=== PATIENT | male | born 1950 | race Caucasian/White ===

== ENCOUNTER → 2020-01-31 10:40 | Outpatient (BNVA) | payer MEDICARE, SELFPAY | PROVIDERS: Family Provider Family Medicine; Visit Provider Nurse Practitioner | DX: J84.10 Pulmonary fibrosis, unspecified (principal); J44.9 Chronic obstructive pulmonary disease, unspecified; R07.9 Chest pain, unspecified | CPT/HCPCS: 71046 ==

== ENCOUNTER 2020-02-15 10:27 | Outpatient (CLI) | payer MEDICARE, SELFPAY ==
--- NOTE | 2020-02-15 10:45 | XRR_ITS ---
PROCEDURE INFORMATION: Exam: XR Lumbosacral Spine, 2 or 3 Views Exam date and time: 02/15/2020 10:50 AM Age: 69 years old Clinical indication: Pain; Other: Lumbar radiculopathy; Additional info: Right lumbar radiculopathy TECHNIQUE: Imaging protocol: XR of the lumbosacral spine, 2 or 3 views. COMPARISON: No relevant prior studies available. FINDINGS: Bones/joints: No acute bony injury or malalignment. Degenerative change. Gastrointestinal tract: Prominent stool. Vasculature: Vascular calcification. XR/XR lumbar spine 2-3V* [id number] IMPRESSION: Degenerative change.
== END 2020-02-15 10:28 | disposition home or self-care (01) ==
PROVIDERS: PCP Family Medicine; Visit Provider Family Medicine
DX: M54.16 Radiculopathy, lumbar region (principal)
CPT/HCPCS: 72100

== ENCOUNTER → 2020-03-01 11:29 | Outpatient (BNVA) | payer MEDICARE, SELFPAY | PROVIDERS: PCP Family Medicine; Visit Provider Family Medicine | DX: R74.8 Abnormal levels of other serum enzymes (principal) | CPT/HCPCS: 82977 ==

== ENCOUNTER → 2020-03-07 09:36 | Outpatient (BNVA) | payer MEDICARE, SELFPAY | PROVIDERS: PCP Family Medicine; Visit Provider Family Medicine | DX: R89.9 Unspecified abnormal finding in specimens from other organs, systems and tissues (principal); R53.1 Weakness; R79.81 Abnormal blood-gas level; J44.9 Chronic obstructive pulmonary disease, unspecified; F41.9 Anxiety disorder, unspecified | CPT/HCPCS: 80053; 84443; 85007; 85025 ==

== ENCOUNTER 2020-03-08 15:29 | Inpatient (IN) | payer MEDICARE, SELFPAY ==
[2020-03-08] VITALS (18 sets, daily range): BP systolic 97–175; BP diastolic 60–103; PULSE 98–119; RESP 18–28; TEMP 36.5–36.6; O2SAT 97–100; BMI 20.8
--- NOTE | 2020-03-08 15:47 | XR_ITS ---
WS: [id number] Exam: XR chest 1V portable [id number] Date/Time of Exam: 03/08/2020 4:09 PM Reason For Exam: dyspnea/cough Comparison 01/31/2020. The lungs are hyperinflated. No infiltrates identified. Chronic interstitial changes. Unremarkable ca rdiomediastinal structures. No pleural effusions. Monitoring leads superimpose the chest. XR/XR chest 1V portable [id number] IMPRESSION: 1. Chronic pulmonary changes but no acute process identified. 2. Pulmonary hyperinflation most likely indicating obstructive lung disease.
--- NOTE | 2020-03-08 15:56 | ED_ITS ---
HPI - Weakness General: Chief complaint: Weakness Stated complaint: sob/back pain Time Seen by Provider: 03/08/20 15:46 History of Present Illness: HPI Narrative: 69-year-old male who comes in complaining of weight loss and weakness over the last 8 weeks he injured his back. His alk phos is significantly elevated at evidently 800 and they were called about that today he gets severely anxious he is hyperventilating when I seen him. He has difficult time isolating any particular pain other than just generalized in his back. No specific trauma. Patient has developed some incontinence and has been wearing depends lately. Complaint: generalized weakness Onset (ago): week(s) (8) Duration: intermittent and progressively worsening Location: generalized Migration: none Severity: moderate Relieving factors: none Exacerbating factors: none Associated symptoms: Denies chest pain, chills, confusion, melena, decreased appetite, diaphoresis, dysuria, easy bruising, fever(s), headache(s), myalgias, nausea, rash, short of breath, syncope or vomiting Review of Systems Const: Denies: fever(s), chills or diaphoresis Card: Denies: chest pain or syncope GI: Denies: nausea, vomiting or melena : Denies: dysuria Neuro: Denies: headache(s) or confusion Srikanth/Lymph: Denies: easy bruising PFS ED PFSH: Medical History (Updated 03/09/20 @ 10:43 by Dank Lemos DO) Anxiety COPD (chronic obstructive pulmonary disease) Surgical History (Updated 03/08/20 @ 18:57 by Gume Velazquez MD) H/O eye surgery Family History (Updated 03/08/20 @ 18:58 by Gume Velazquez MD) Mother Asthma Father Prostate cancer Social History (Updated 03/08/20 @ 18:58 by Gume Velazquez MD) Smoking and tobacco status: former smoker Alcohol intake: current Substance/Drug Use: never Physical Exam Const: COMMON NORMALS: no acute distress GENERAL APPEARANCE: cooperative and comfortable ORIENTATION/CONSCIOUSNESS: Yes awake, Yes oriented to person, Yes oriented to place and Yes oriented to time HENMT: COMMON NORMALS: normocephalic, atraumatic and hearing grossly normal bilaterally HEAD & SCALP: normocephalic and atraumatic Eye: COMMON NORMALS: Equal, round and reactive pupils present, EOMs intact bilaterally, conjunctivae normal and no scleral icterus CONJUNCTIVA: Yes conjunctivae normal PUPIL: Yes Equal, round and reactive pupils present Neck/C-Spine: COMMON NORMALS: full ROM, no lymphadenopathy, supple and no JVD Lymph: LYMPHATIC: no lymphadenopathy noted and no lymphedema noted Resp: COMMON NORMALS: normal respiratory effort, No retractions, No use of accessory muscles and clear to auscultation bilaterally AUSCULTATION: clear to auscultation bilaterally Cardio: COMMON NORMALS: no JVD, regular rate, regular rhythm and No murmurs present (Cardio) RATE: regular rate RHYTHM: regular rhythm GI: COMMON NORMALS: Soft to palpation and No hepatosplenomegaly present AUSCULTATION: Yes normoactive bowel sounds PALPATION: Yes Soft to palpation, No Tenderness to palpation present (GI), No Guarding due to palpation present (GI) and Yes No hepatosplenomegaly present Extremity: COMMON NORMALS: normal to inspection, capillary refill normal, no clubbing, cyanosis or edema, no calf tenderness and no pedal edema Neuro: SENSORIUM/ORIENTATION: Yes oriented to person, Yes oriented to place and Yes oriented to time Skin: COMMON NORMALS: no rashes or lesions noted GENERAL SKIN EXAM: no rashes or lesions noted Course Vital Signs: Vital signs: Vital Signs Temperature 97.6 F 03/09/20 07:28 Pulse Rate 91 03/09/20 08:06 Respiratory Rate 22 H 03/09/20 08:03 Blood Pressure 151/101 03/09/20 07:28 Pulse Oximetry 99 03/09/20 08:03 MDM - Weakness MDM Narrative: Medical decision making narrative: CT does not show any PE however D-dimer is extremely high. There is significant evidence for prostate CA with mets to the bone and a question of a pulmonary nodule. This fits the clinical picture with his difficulty with urination overflow incontinence as well as a marked elevation of the alk phos. We will go ahead and admit him. In addition to all this he does have exacerbation of COPD. He has some mild hyperkalemia as well discussed with Dr. Cortez he will be attending orders are written. Lab Data: Labs: Lab Results 03/08/20 03/08/20 03/08/20 Range/Units 16:00 16:13 16:13 WBC 6.6 (4.0-10.0) 10^3/ uL Corrected WBC 5.5 (4.8-10.8) 10^3/ cmm RBC 3.78 L (4.1-5.3) 10^6/u L Hgb 10.7 L (11.7-16.6) g/dL Hct 35.3 L (42.0-52.0) % MCV 93.4 (80-94) fL MCH 28.3 (28.0-34.0) pg MCHC 30.3 (30.0-36.0) g/dL RDW 17.2 H (12.1-15.1) % Plt Count 72 L (130-400) 10^3/c mm MPV 11.4 H (7.4-10.4) fL Lymph % (Auto) Not Reportable [place] % (Auto) Not Reportable Lymph # (Auto) Not Reportable [place] # (Auto) Not Reportable Total Counted 100 (0-100) Atypical Lymphs % 0.0 (0-5) % Absolute Neutrophi ls 4.2 (1.4-6.5) 10^3/c mm Segmented Neutroph ils 62 % Abs Segm Neuts (Ma n) 4.1 (1.6-7.1) 10/cmm Band Neutrophils 1.0 % Abs Band Neuts (Ma n) 0.1 (0.0-1.2) 10^3/c mm Lymphocytes (Manua l) 25 % Monocytes (Manual) 1.0 % Absolute Monocytes 0.1 (0.1-0.6) 10^3/c mm Eosinophils (Manua l) 2 % Absolute Eosinophi ls 0.1 (0.0-0.7) 10^3/c mm Basophils (Manual) 0.0 % Absolute Basophils 0.0 (0.0-0.2) 10^3/c mm Metamyelocytes 7.0 % Myelocytes 2.0 % Nucleated RBCs 19.0 H (0-1) /100WBC Platelet Estimate Decreased (Normal) D-Dimer (0-0.59) ug/mIFE U Specimen Type Arterial Sample Site Radial, left ABG pH 7.29 L (7.35-7.45) ABG pCO2 64.7 H* (35-45) mmHg ABG pO2 136.0 H (80.0-100.0) mmH g ABG HCO3 31.1 H (22-26) mmol/L ABG O2 Saturation 99.1 ABG Base Excess 3.1 H (-2.0-2.0) mmol/ L Avila Test Pos A-a O2 Gradient 1.6 L (5-10) mmHg Hematocrit 35.7 L (42-52) % Hgb O2 Saturation 97.2 (95-100) % Carboxyhemoglobin 1.3 (0.4-20.1) %THgb Methemoglobin 0.7 (0.4-1.5) % Total Hemoglobin 11.7 L (14-18) g/dL Sodium 131.0 132 L (131-143) mmol/L Potassium 5.2 H 5.5 H (3.5-5.0) mmol/L Glucose 144.0 H 146 H (70-115) mg/dL Ionized Calcium 1.3 (1.1-1.4) mmol/L O2 Delivery Device Nc O2 Liters/Min 3.0 % FiO2 32.0 % Upholstery Handler ID Gd Chloride 92 L (98-107) mmol/L Carbon Dioxide 29 (22-29) mmol/L Anion Gap 16.5 (5-19) BUN 18 (8-23) mg/dL Creatinine 0.6 L (0.7-1.2) mg/dL GFR Calculation Not Reportable Calculated Osmolal ity 279 L (285-295) mOsm/k g Lactic Acid (0.5-2.2) mmol/L Calcium 9.5 (8.5-10.5) mg/dL Magnesium 2.1 (1.7-2.3) mg/dL Ferritin (30-400) ng/mL Total Bilirubin 0.5 (0.15-1.2) mg/dL AST 62 H (0-40) U/L ALT 17 (0-41) U/L Alkaline Phosphata se 941 H (40-130) IU/L Lactate Dehydrogen ase (135-225) U/L Creatine Kinase 149 (39-308) U/L Troponin T Baselin e (0-15) ng/L Troponin T 120 Min [place] (0-15) ng/L Delta Troponin T (0-10) ABS# Total Protein 6.7 (6.6-8.7) g/dL Albumin 3.8 (3.5-5.2) g/dL Globulin 2.9 (1.3-4.6) g/dL Lipase 18 (13-60) U/L Prostate Specific Ag (0-4) ng/mL Urine Color (Yellow) Urine Appearance (CLEAR) Urine pH (5-7) Ur Specific Gravit y (1.005-1.030) Urine Protein (Negative) Urine Glucose (UA) (Normal) Urine Ketones (Negative) Urine Blood (Negative) Urine Nitrate (Negative) Urine Bilirubin (Negative) Urine Urobilinogen (Negative) mg/dL Ur Leukocyte Davida ase (Negative) Urine RBC (0-2) /hpf Urine WBC (0-5) /hpf Ur Squamous Epith Cells (0-5) /hpf Amorphous Sediment Urine Bacteria (NONE) /hpf Hepatitis A IgM Ab (Nonreactive) Hep Bs Antigen (Nonreactive) Hep B Core IgM Ab (Nonreactive) Hepatitis C Antibo dy (Nonreactive) HIV 1&2 Ab & HIV 1 Ag (Non-Reactiv) HIV 1&2 Antibody (Non-Reactiv) SARS-CoV-2 Ag (Rap id) (Negative) 03/08/20 03/08/20 03/08/20 Range/Units 16:13 16:13 16:13 WBC (4.0-10.0) 10^3/ uL Corrected WBC (4.8-10.8) 10^3/ cmm RBC (4.1-5.3) 10^6/u L Hgb (11.7-16.6) g/dL Hct (42.0-52.0) % MCV (80-94) fL MCH (28.0-34.0) pg MCHC (30.0-36.0) g/dL RDW (12.1-15.1) % Plt Count (130-400) 10^3/c mm MPV (7.4-10.4) fL Lymph % (Auto) [place] % (Auto) Lymph # (Auto) [place] # (Auto) Total Counted (0-100) Atypical Lymphs % (0-5) % Absolute Neutrophi ls (1.4-6.5) 10^3/c mm Segmented Neutroph ils % Abs Segm Neuts (Ma n) (1.6-7.1) 10/cmm Band Neutrophils % Abs Band Neuts (Ma n) (0.0-1.2) 10^3/c mm Lymphocytes (Manua l) % Monocytes (Manual) % Absolute Monocytes (0.1-0.6) 10^3/c mm Eosinophils (Manua l) % Absolute Eosinophi ls (0.0-0.7) 10^3/c mm Basophils (Manual) % Absolute Basophils (0.0-0.2) 10^3/c mm Metamyelocytes % Myelocytes % Nucleated RBCs (0-1) /100WBC Platelet Estimate (Normal) D-Dimer >= 20.00 H (0-0.59) ug/mIFE U Specimen Type Sample Site ABG pH (7.35-7.45) ABG pCO2 (35-45) mmHg ABG pO2 (80.0-100.0) mmH g ABG HCO3 (22-26) mmol/L ABG O2 Saturation ABG Base Excess (-2.0-2.0) mmol/ L Avila Test A-a O2 Gradient (5-10) mmHg Hematocrit (42-52) % Hgb O2 Saturation (95-100) % Carboxyhemoglobin (0.4-20.1) %THgb Methemoglobin (0.4-1.5) % Total Hemoglobin (14-18) g/dL Sodium (131-143) mmol/L Potassium (3.5-5.0) mmol/L Glucose (70-115) mg/dL Ionized Calcium (1.1-1.4) mmol/L O2 Delivery Device O2 Liters/Min % FiO2 % Upholstery Handler ID Chloride (98-107) mmol/L Carbon Dioxide (22-29) mmol/L Anion Gap (5-19) BUN (8-23) mg/dL Creatinine (0.7-1.2) mg/dL GFR Calculation Calculated Osmolal ity (285-295) mOsm/k g Lactic Acid 0.7 (0.5-2.2) mmol/L Calcium (8.5-10.5) mg/dL Magnesium (1.7-2.3) mg/dL Ferritin (30-400) ng/mL Total Bilirubin (0.15-1.2) mg/dL AST (0-40) U/L ALT (0-41) U/L Alkaline Phosphata se (40-130) IU/L Lactate Dehydrogen ase (135-225) U/L Creatine Kinase (39-308) U/L Troponin T Baselin e 22 H (0-15) ng/L Troponin T 120 Min [place] (0-15) ng/L Delta Troponin T (0-10) ABS# Total Protein (6.6-8.7) g/dL Albumin (3.5-5.2) g/dL Globulin (1.3-4.6) g/dL Lipase (13-60) U/L Prostate Specific Ag (0-4) ng/mL Urine Color (Yellow) Urine Appearance (CLEAR) Urine pH (5-7) Ur Specific Gravit y (1.005-1.030) Urine Protein (Negative) Urine Glucose (UA) (Normal) Urine Ketones (Negative) Urine Blood (Negative) Urine Nitrate (Negative) Urine Bilirubin (Negative) Urine Urobilinogen (Negative) mg/dL Ur Leukocyte Davida ase (Negative) Urine RBC (0-2) /hpf Urine WBC (0-5) /hpf Ur Squamous Epith Cells (0-5) /hpf Amorphous Sediment Urine Bacteria (NONE) /hpf Hepatitis A IgM Ab (Nonreactive) Hep Bs Antigen (Nonreactive) Hep B Core IgM Ab (Nonreactive) Hepatitis C Antibo dy (Nonreactive) HIV 1&2 Ab & HIV 1 Ag (Non-Reactiv) HIV 1&2 Antibody (Non-Reactiv) SARS-CoV-2 Ag (Rap id) (Negative) 03/08/20 03/08/20 03/08/20 Range/Units 16:13 16:13 16:13 WBC (4.0-10.0) 10^3/ uL Corrected WBC (4.8-10.8) 10^3/ cmm RBC (4.1-5.3) 10^6/u L Hgb (11.7-16.6) g/dL Hct (42.0-52.0) % MCV (80-94) fL MCH (28.0-34.0) pg MCHC (30.0-36.0) g/dL RDW (12.1-15.1) % Plt Count (130-400) 10^3/c mm MPV (7.4-10.4) fL Lymph % (Auto) [place] % (Auto) Lymph # (Auto) [place] # (Auto) Total Counted (0-100) Atypical Lymphs % (0-5) % Absolute Neutrophi ls (1.4-6.5) 10^3/c mm Segmented Neutroph ils % Abs Segm Neuts (Ma n) (1.6-7.1) 10/cmm Band Neutrophils % Abs Band Neuts (Ma n) (0.0-1.2) 10^3/c mm Lymphocytes (Manua l) % Monocytes (Manual) % Absolute Monocytes (0.1-0.6) 10^3/c mm Eosinophils (Manua l) % Absolute Eosinophi ls (0.0-0.7) 10^3/c mm Basophils (Manual) % Absolute Basophils (0.0-0.2) 10^3/c mm Metamyelocytes % Myelocytes % Nucleated RBCs (0-1) /100WBC Platelet Estimate (Normal) D-Dimer (0-0.59) ug/mIFE U Specimen Type Sample Site ABG pH (7.35-7.45) ABG pCO2 (35-45) mmHg ABG pO2 (80.0-100.0) mmH g ABG HCO3 (22-26) mmol/L ABG O2 Saturation ABG Base Excess (-2.0-2.0) mmol/ L Avila Test A-a O2 Gradient (5-10) mmHg Hematocrit (42-52) % Hgb O2 Saturation (95-100) % Carboxyhemoglobin (0.4-20.1) %THgb Methemoglobin (0.4-1.5) % Total Hemoglobin (14-18) g/dL Sodium (131-143) mmol/L Potassium (3.5-5.0) mmol/L Glucose (70-115) mg/dL Ionized Calcium (1.1-1.4) mmol/L O2 Delivery Device O2 Liters/Min % FiO2 % Upholstery Handler ID Chloride (98-107) mmol/L Carbon Dioxide (22-29) mmol/L Anion Gap (5-19) BUN (8-23) mg/dL Creatinine (0.7-1.2) mg/dL GFR Calculation Calculated Osmolal ity (285-295) mOsm/k g Lactic Acid (0.5-2.2) mmol/L Calcium (8.5-10.5) mg/dL Magnesium (1.7-2.3) mg/dL Ferritin 5059 H (30-400) ng/mL Total Bilirubin (0.15-1.2) mg/dL AST (0-40) U/L ALT (0-41) U/L Alkaline Phosphata se (40-130) IU/L Lactate Dehydrogen ase 644 H (135-225) U/L Creatine Kinase (39-308) U/L Troponin T Baselin e (0-15) ng/L Troponin T 120 Min [place] (0-15) ng/L Delta Troponin T (0-10) ABS# Total Protein (6.6-8.7) g/dL Albumin (3.5-5.2) g/dL Globulin (1.3-4.6) g/dL Lipase (13-60) U/L Prostate Specific Ag 1344.000 H (0-4) ng/mL Urine Color (Yellow) Urine Appearance (CLEAR) Urine pH (5-7) Ur Specific Gravit y (1.005-1.030) Urine Protein (Negative) Urine Glucose (UA) (Normal) Urine Ketones (Negative) Urine Blood (Negative) Urine Nitrate (Negative) Urine Bilirubin (Negative) Urine Urobilinogen (Negative) mg/dL Ur Leukocyte Davida ase (Negative) Urine RBC (0-2) /hpf Urine WBC (0-5) /hpf Ur Squamous Epith Cells (0-5) /hpf Amorphous Sediment Urine Bacteria (NONE) /hpf Hepatitis A IgM Ab Non-reactive (Nonreactive) Hep Bs Antigen Non-reactive (Nonreactive) Hep B Core IgM Ab Non-reactive (Nonreactive) Hepatitis C Antibo dy Non-reactive (Nonreactive) HIV 1&2 Ab & HIV 1 Ag Non-reactive (Non-Reactiv) HIV 1&2 Antibody Non-reactive (Non-Reactiv) SARS-CoV-2 Ag (Rap id) (Negative) 03/08/20 03/08/20 03/08/20 Range/Units 16:51 16:51 18:06 WBC (4.0-10.0) 10^3/ uL Corrected WBC (4.8-10.8) 10^3/ cmm RBC (4.1-5.3) 10^6/u L Hgb (11.7-16.6) g/dL Hct (42.0-52.0) % MCV (80-94) fL MCH (28.0-34.0) pg MCHC (30.0-36.0) g/dL RDW (12.1-15.1) % Plt Count (130-400) 10^3/c mm MPV (7.4-10.4) fL Lymph % (Auto) [place] % (Auto) Lymph # (Auto) [place] # (Auto) Total Counted (0-100) Atypical Lymphs % (0-5) % Absolute Neutrophi ls (1.4-6.5) 10^3/c mm Segmented Neutroph ils % Abs Segm Neuts (Ma n) (1.6-7.1) 10/cmm Band Neutrophils % Abs Band Neuts (Ma n) (0.0-1.2) 10^3/c mm Lymphocytes (Manua l) % Monocytes (Manual) % Absolute Monocytes (0.1-0.6) 10^3/c mm Eosinophils (Manua l) % Absolute Eosinophi ls (0.0-0.7) 10^3/c mm Basophils (Manual) % Absolute Basophils (0.0-0.2) 10^3/c mm Metamyelocytes % Myelocytes % Nucleated RBCs (0-1) /100WBC Platelet Estimate (Normal) D-Dimer (0-0.59) ug/mIFE U Specimen Type Sample Site ABG pH (7.35-7.45) ABG pCO2 (35-45) mmHg ABG pO2 (80.0-100.0) mmH g ABG HCO3 (22-26) mmol/L ABG O2 Saturation ABG Base Excess (-2.0-2.0) mmol/ L Avila Test A-a O2 Gradient (5-10) mmHg Hematocrit (42-52) % Hgb O2 Saturation (95-100) % Carboxyhemoglobin (0.4-20.1) %THgb Methemoglobin (0.4-1.5) % Total Hemoglobin (14-18) g/dL Sodium (131-143) mmol/L Potassium (3.5-5.0) mmol/L Glucose (70-115) mg/dL Ionized Calcium (1.1-1.4) mmol/L O2 Delivery Device O2 Liters/Min % FiO2 % Upholstery Handler ID Chloride (98-107) mmol/L Carbon Dioxide (22-29) mmol/L Anion Gap (5-19) BUN (8-23) mg/dL Creatinine (0.7-1.2) mg/dL GFR Calculation Calculated Osmolal ity (285-295) mOsm/k g Lactic Acid (0.5-2.2) mmol/L Calcium (8.5-10.5) mg/dL Magnesium (1.7-2.3) mg/dL Ferritin (30-400) ng/mL Total Bilirubin (0.15-1.2) mg/dL AST (0-40) U/L ALT (0-41) U/L Alkaline Phosphata se (40-130) IU/L Lactate Dehydrogen ase (135-225) U/L Creatine Kinase (39-308) U/L Troponin T Baselin e (0-15) ng/L Troponin T 120 Min [place] 24.40 H (0-15) ng/L Delta Troponin T 2.40 (0-10) ABS# Total Protein (6.6-8.7) g/dL Albumin (3.5-5.2) g/dL Globulin (1.3-4.6) g/dL Lipase (13-60) U/L Prostate Specific Ag (0-4) ng/mL Urine Color Yellow (Yellow) Urine Appearance Turbid (CLEAR) Urine pH 5 (5-7) Ur Specific Gravit y 1.025 (1.005-1.030) Urine Protein 1+ H (Negative) Urine Glucose (UA) Norm (Normal) Urine Ketones Negative (Negative) Urine Blood 3+ H (Negative) Urine Nitrate Negative (Negative) Urine Bilirubin Neg (Negative) Urine Urobilinogen 1 H (Negative) mg/dL Ur Leukocyte Davida ase Negative (Negative) Urine RBC 0-4 H (0-2) /hpf Urine WBC None (0-5) /hpf Ur Squamous Epith Cells None (0-5) /hpf Amorphous Sediment Not Reportable Urine Bacteria 4+ H (NONE) /hpf Hepatitis A IgM Ab (Nonreactive) Hep Bs Antigen (Nonreactive) Hep B Core IgM Ab (Nonreactive) Hepatitis C Antibo dy (Nonreactive) HIV 1&2 Ab & HIV 1 Ag (Non-Reactiv) HIV 1&2 Antibody (Non-Reactiv) SARS-CoV-2 Ag (Rap id) Negative (Negative) Discharge Plan Discharge Patient Disposition: Admitted As Inpatient Admit Provider: Gume Velazquez Clinical Impression: COPD (chronic obstructive pulmonary disease), Acute hypercapnic respiratory failure, Prostate cancer Condition: Stable Coding Level of Care Code ED Barrel Cap Setter for Chg Fwd Exam Comprehensive
--- NOTE | 2020-03-08 15:59 | CTR_ITS ---
PROCEDURE INFORMATION: Exam: CT Lumbar Spine Without Contrast Exam date and time: 03/08/2020 5:19 PM Age: 69 years old Clinical indication: Low back pain; Additional info: Back pain, overflow incontinence TECHNIQUE: Imaging protocol: Computed tomography images of the lumbar spine without contrast. Radiation optimization: All CT scans at this facility use at least one of these dose optimization techniques: automated exposure control; mA and/or kV adjustment per patient size (includes targeted exams where dose is matched to clinical indication); or iterative reconstruction. COMPARISON: CR XR lumbar spine 2-3V* [id number] 02/15/2020 10:[address] abdomen pelvis 03/08/2020. RADIATION DOSE METRICS: Total DLP (mGy-cm): 2100.86 FINDINGS: Vertebrae: Diffuse mottled sclerotic appearance throughout the skeleton. The vertebral body stature is intact. No subluxation. Degenerative endplate changes with anterior spurring at L1-L2. Mild leftward lumbar curvature. L1-L2: No significant disc protrusion. No severe spinal canal stenosis. No significant neural foraminal narrowing. L2-L3: No significant disc protrusion. No spinal canal stenosis. No neural foraminal narrowing. L3-L4: No significant disc protrusion. No severe spinal canal stenosis. No significant neural foraminal narrowing. L4-L5: Trace disc bulge. Degenerative facets. Mild bilateral foraminal stenosis. No central canal stenosis. L5-S1: Trace disc bulge. Degenerative facets. Mild right foraminal stenosis. No left foraminal or central canal stenosis. Lymph nodes: Multiple enlarged retroperitoneal and right iliac chain lymph nodes measuring up to 1.8 cm short axis. 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 Soft tissues: Unremarkable. CT/CT lumbar spine wo con* [id number] IMPRESSION: 1. No acute fracture or pathologic fracture identified. 2. Diffuse mottled sclerotic appearance throughout the skeleton. This can be seen with diffuse metastatic prostate cancer and less likely chronic renal disease. 3. Retroperitoneal and right iliac chain lymphadenopathy. Lymphoma or metastatic disease is not excluded. Radiation Dose CTDIVOL = (mGy): DLP = 2100.86 (mGy-cm)
[2020-03-08 16:20] LABS: ABG PH Result 7.29 (7.35-7.45); Alveolar-Arterial Oxygen Gradi 1.6 mmHg (5-10); Arterial Blood Gas Hematocrit 35.7 % (42-52); Base Excess ABG 3.1 mmol/L (-2.0-2.0); Blood Gas Allen Test Pos; Blood Gas Operator Identificat GD; Blood Gas Sample Site Radial, left; Blood Gas Sample Type Arterial; Carboxyhemoglobin 1.3 %THgb (0.4-20.1); HCO3 ABG 31.1 mmol/L (22-26); HGB O2 Sat 97.2 % (95-100); Ionized Calcium Level - ABG 1.3 mmol/L (1.1-1.4); Methemoglobin 0.7 % (0.4-1.5); Oxygen Device NC; Oxygen Saturation ABG 99.1; Potassium Level - ABG 5.2 mmol/L (3.5-5.0); Total Hemoglobin 11.7 g/dL (14-18)
[2020-03-08 16:21] LABS: Hematocrit 35.3 % (42.0-52.0); Hemoglobin 10.7 g/dL (11.7-16.6); Mean Corpuscular HGB Conc 30.3 g/dL (30.0-36.0); Mean Corpuscular Hemoglobin 28.3 pg (28.0-34.0); Mean Corpuscular Volume 93.4 fL (80-94); Mean Platelet Volume 11.4 fL (7.4-10.4); Platelet Count 72 10^3/cmm (130-400); Red Blood Count 3.78 10^6/uL (4.1-5.3); Red Cell Distribution Width 17.2 % (12.1-15.1); White Blood Count 6.6 10^3/uL (4.0-10.0)
[2020-03-08 16:21] LABS: ABG PCO2 64.7 mmHg (35-45)
--- NOTE | 2020-03-08 16:36 | CTR_ITS ---
PROCEDURE INFORMATION: Exam: CT Angiography Chest With Contrast Exam date and time: 03/08/2020 5:19 PM Age: 69 years old Clinical indication: Shortness of breath; Patient HX: SOB, elevated d-dimer; Additional info: Resp failure TECHNIQUE: Imaging protocol: Computed tomographic angiography of the chest with intravenous contrast. 3D rendering (Not supervised by radiologist): MIP and/or 3D reconstructed images were created by the technologist. Radiation optimization: All CT scans at this facility use at least one of these dose optimization techniques: automated exposure control; mA and/or kV adjustment per patient size (includes targeted exams where dose is matched to clinical indication); or iterative reconstruction. Contrast material: OMNI 350; Contrast volume: 95 ml; Contrast route: INTRAVENOUS (IV); COMPARISON: CR XR chest 1V portable [id number] 03/08/2020 4:15 PM RADIATION DOSE METRICS: Total DLP (mGy-cm): 1365.3 FINDINGS: Pulmonary arteries: Normal. No pulmonary emboli. Aorta: Unremarkable. No aortic aneurysm. No aortic dissection. Lungs: Severe centrilobular emphysema. Focal scarring in the posterior right upper lobe. 4 mm nodule along the minor fissure, series 4, image 45. 5 mm right lower lobe nodule, image 37. 5 mm right lower lobe nodule, image 48. 4 mm right lower lobe nodule, image 55. 4 mm right lower lobe nodule, image 61. 2 mm nodule in the left upper lobe, image 13. 3 mm nodule in the left upper lobe, image 29. 4 mm nodule in the left lower lobe, image 37. 4 mm nodule in the left lower lobe, image 61. Pleural space: Unremarkable. No pneumothorax. No pleural effusion. Heart: Unremarkable. No cardiomegaly. No pericardial effusion. Lymph nodes: Retrocrural and posterior mediastinal lymph nodes measuring up to 1.5 cm short axis. Bones/joints: Diffuse sclerotic mottled appearance throughout the thoracic skeleton. No compression fracture. T5 Schmorl's node. Soft tissues: Unremarkable. IMPRESSION: 1. No evidence for pulmonary embolus. 2. Diffuse mottled sclerotic appearance in the skeleton. This can be seen with metastatic prostate cancer and less likely chronic renal disease or other metabolic disorder. 3. Retrocrural and posterior mediastinal lymphadenopathy. This is suspicious for metastatic disease or lymphoma. 4. Multiple bilateral pulmonary nodules measuring up to 5 mm. Metastatic disease is not excluded. For patients at low risk (minimal or absent history of smoking and of other known risk factors), no routine follow-up is indicated. For patients at high risk (history of smoking or of other known risk factors), consider optional CT Chest at 12 months. (Reference: Chidi) References: Chidi Garcia et al. Guidelines for Management of Incidental Pulmonary Nodules Detected on CT Images: From the Fleischner Society 2017. Radiology. 2017;284(1):228-243. PROCEDURE INFORMATION: Exam: CT Abdomen And Pelvis With Contrast Exam date and time: 03/08/2020 5:19 PM Age: 69 years old Clinical indication: Shortness of breath; Patient HX: SOB, elevated d-dimer; Additional info: Resp failure TECHNIQUE: Imaging protocol: Computed tomography of the abdomen and pelvis with intravenous contrast. Radiation optimization: All CT scans at this facility use at least one of these dose optimization techniques: automated exposure control; mA and/or kV adjustment per patient size (includes targeted exams where dose is matched to clinical indication); or iterative reconstruction. Contrast material: OMNI 350; Contrast volume: 95 ml; Contrast route: INTRAVENOUS (IV); COMPARISON: CR XR chest 1V portable [id number] 03/08/2020 4:15 PM RADIATION DOSE METRICS: Total DLP (mGy-cm): 1365.3 FINDINGS: Liver: Focal fatty infiltration in the left liver lobe. Otherwise unremarkable. Gallbladder and bile ducts: Normal. No calcified stones. No ductal dilation. Pancreas: Normal. No ductal dilation. Spleen: Normal. No splenomegaly. Adrenal glands: Normal. No mass. Kidneys and ureters: Hypodensity in the inferior left kidney is too small to characterize but is most likely a cyst. No follow-up imaging is recommended. The left kidney is normal. No hydronephrosis. Stomach and bowel: Diverticulosis of the colon without diverticulitis. The stomach and small bowel are unremarkable. Appendix: The appendix is visualized and is normal. Intraperitoneal space: Unremarkable. No free air. No significant fluid collection. Vasculature: Proximal abdominal aortic aneurysm measuring 3.5 cm. 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 Lymph nodes: Multiple enlarged retroperitoneal and right external iliac chain lymph nodes with short axis dimension measuring up to 1.7 cm. Slightly enlarged internal iliac chain lymph nodes. Urinary bladder: The urinary bladder is decompressed. Reproductive: Enlarged inhomogenous prostate measuring 5.1 x 6.0 x 6.5 cm and mildly indenting the urinary bladder. Bones/joints: Diffuse small sclerotic appearance throughout the skeleton. Soft tissues: Fat containing right inguinal hernia. CT/CT angio chest w abd pel w con IMPRESSION: 1. Enlarged inhomogenous prostate. Given the other findings, underlying prostate malignancy is not excluded. 2. Retroperitoneal and bilateral iliac chain lymphadenopathy. This is suspicious for metastatic disease or lymphoma. 3. Diffuse mottled sclerotic appearance throughout the skeleton. This can be seen with metastatic prostate cancer and chronic renal disease or other metabolic disorder. COMMENTS: Consistent with the [place] [employer]'s Incidental Findings Committee white paper (J Am Lex Radiol 2018): Any incidental renal lesion less than 1 cm or classified as too small to characterize, or any incidental cystic renal lesion characterized as simple-appearing, is likely benign. No follow-up imaging is recommended for these lesions per consensus recommendations based on imaging criteria. Radiation Dose CTDIVOL = (mGy): DLP = 1365.3~1365.3 (mGy-cm)
[2020-03-08] MEDS: sodium chlor 0.9% + KCl 20 mEq 20 MEQ/1,000 ML BAG 125 MEQ IV (16:38)
[2020-03-08 17:01] LABS: Troponin(5th) Baseline 22 ng/L (0-15)
[2020-03-08 17:05] LABS: Slide Review Slide Review Perform
[2020-03-08 17:12] LABS: D Dimer >= 20.00 ug/mIFEU (0-0.59)
[2020-03-08 17:13] LABS: Absolute Eosinophils 0.1 10^3/cmm (0.0-0.7); Absolute Segmented Neutrophil 4.1 10/cmm (1.6-7.1); Band Neutrophils Absolute 0.1 10^3/cmm (0.0-1.2); Corrected White Blood Count 5.5 10^3/cmm (4.8-10.8); Eosinophils 2 %; Lymphocytes 25 %; Monocytes Absolute 0.1 10^3/cmm (0.1-0.6); Segmented Neutrophils 62 %; Total Cells Counted 100 (0-100)
[2020-03-08 17:14] LABS: Absolute Neutrophil 4.2 10^3/cmm (1.4-6.5); Platelet Estimate Decreased (Normal)
[2020-03-08 17:16] LABS: Lactic Sepsis W/Reflex 0.7 mmol/L (0.5-2.2)
[2020-03-08 17:34] LABS: Alanine Aminotransferase 17 U/L (0-41); Albumin Level 3.8 g/dL (3.5-5.2); Alkaline Phosphatase 941 IU/L (40-130); Anion Gap 16.5 (5-19); Aspartate Amino Transferase 62 U/L (0-40); Blood Urea Nitrogen 18 mg/dL (8-23); Calcium 9.5 mg/dL (8.5-10.5); Carbon Dioxide 29 mmol/L (22-29); Chloride 92 mmol/L (98-107); Creatine Phosphokinase 149 U/L (39-308); Globulin 2.9 g/dL (1.3-4.6); Glucose 146 mg/dL (65-115); Lipase 18 U/L (13-60); Magnesium 2.1 mg/dL (1.7-2.3); Osmolality Calculated 279 mOsm/kg (285-295); Potassium 5.5 mmol/L (3.5-5.1); Sodium 132 mmol/L (136-145); Total Bilirubin 0.5 mg/dL (0.15-1.2); Total Protein 6.7 g/dL (6.6-8.7)
[2020-03-08 17:42] LABS: Glucose Urine UA Norm (Normal); Protein Urine 1+ (Negative); Specific Gravity, Urine 1.025 (1.005-1.030); Urine Appearance Turbid (CLEAR); Urine Color Yellow (Yellow); pH Urine 5 (5-7)
[2020-03-08 17:44] LABS: Add Urine Microscopic? YES; Bilirubin Urine Neg (Negative); Blood Urine 3+ (Negative); Ketones Urine Negative (Negative); Leukocyte Esterase Urine Negative (Negative); Nitrate Urine Negative (Negative); Urobilinogen Urine 1 mg/dL (Negative)
[2020-03-08 17:45] LABS: RBC Urine 0-4 /hpf (0-2)
[2020-03-08 17:46] LABS: Add Urine Culture? Yes; Bacteria Urine 4+ /hpf
[2020-03-08 17:47] LABS: SARS Covid-2 Antigen Negative (Negative)
--- NOTE | 2020-03-08 17:56 | ECG_ITS ---
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 Measurements Intervals [place] Rate: 113 P: 85 MA: 166 QRS: 249 QRSD: 89 T: 78 QT: 289 QTc: 397 Interpretive Statements SINUS TACHYCARDIA No previous ECG available for comparison Electronically Signed On 03-08-2020 18:12:45 ICEBOX WORKER by Demetrius Ibarra M.D. [id number]
[2020-03-08] MEDS: enoxaparin 80 mg/0.8 mL Syringe SUBCUT (18:16)
[2020-03-08 18:29] LABS: ABG PCO2 57.6 mmHg (35-45); ABG PH Result 7.33 (7.35-7.45); Alveolar-Arterial Oxygen Gradi 5.5 mmHg (5-10); Arterial Blood Gas Hematocrit 33.7 % (42-52); Base Excess ABG 3.2 mmol/L (-2.0-2.0); Blood Gas Allen Test Pos; Blood Gas Operator Identificat GD; Blood Gas Sample Site Radial, right; Blood Gas Sample Type Arterial; Carboxyhemoglobin 1.1 %THgb (0.4-20.1); HCO3 ABG 30.3 mmol/L (22-26); HGB O2 Sat 97.6 % (95-100); Ionized Calcium Level - ABG 1.3 mmol/L (1.1-1.4); Oxygen Device BIPAP; Oxygen Saturation ABG 99.7; Potassium Level - ABG 5.4 mmol/L (3.5-5.0)
[2020-03-08] MEDS: LORazepam 2 mg/mL INJ 1 mL 1 MG IVP (18:39)
[2020-03-08] MEDS: iohexol 350 mg/mL 100 mL Btl IV (18:52)
--- NOTE | 2020-03-08 18:54 | P.HP_ITS ---
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 Patient tells me that he is a fairly active individual, he has been doing well, but about 3 weeks ago he started to complain of lower back pain, t hroughout his lower back, radiating down his right leg, he saw his primary care physician, and they ordered some blood work. They found elevated alkaline phosphatase levels. At the same time patient started to develop severe episodes anxiety, and shortness of breath, he was put on 2 L, his COPD, has quit smoking many years ago, no active smoking, he was put on multiple inhalers with some benefit. However for severe anxiety his primary care physician tried clonazepam, Ativan, however he tells me he is very na?ve to these medications, and they were worried about respiratory depression, so the medications were stopped. Currently he is here in the emergency room because he is having episodes of anxiety and shortness of breath associated with it, and continued lower back pain. No cough, no fevers, no exposure to COVID-19, no orthopnea, no paroxysmal nocturnal dyspnea, no chest pain, no cardiac history, history of strokes,. Review of Systems Const: Denies: fever(s), chills, fatigue or malaise Eyes: Denies: change in vision or blurry vision ENMT: Denies: nasal congestion Card: Denies: chest pain or palpitations Resp: Reports: dyspnea; Denies: productive cough, non-productive cough or wheezing GI: Denies: abdominal pain, nausea, vomiting, hematemesis, diarrhea, constipation, hematochezia or melena : Denies: flank pain, difficulty urinating, dysuria or urinary frequency Musc: Denies: neck pain or back pain Skin/Breast: Denies: rash Neuro: Denies: headache(s), dizziness or vertigo Psych: Denies: anxiety or depression Endo: Denies: polyuria or polydipsia Medications/Allergies Home Medications Medication Instructions Recorded Confirmed Last Taken Type duloxetine 30 mg capsule,delayed 30 mg PO DAILY@12 03/07/20 03/08/20 03/08/20 History release fluticasone 500 mcg-salmeterol 50 1 inh INHALATION BID #60 ea 03/07/20 03/08/20 03/07/20 Rx mcg/dose blistr powdr for inhalation ipratropium bromide 18 1 puff INHALATION BID 03/07/20 03/08/20 Unknown History mcg/actuation aerosol inhaler sertraline 100 mg tablet 75 mg PO DAILY tab 03/07/20 03/08/20 03/07/20 History acetaminophen [Tylenol] 325 mg PO Q4H PRN 03/08/20 03/08/20 03/08/20 History aspirin 81 mg PO DAILY 03/08/20 03/08/20 03/07/20 History buspirone 7.5 mg PO BID PRN 03/08/20 03/08/20 Unknown History clonazepam 1 mg PO TID PRN 03/08/20 03/08/20 Unknown History Allergies Allergy/AdvReac Type Severity Reaction Status Date / Time No Known Allergies Allergy Verified 03/07/20 08:13 PFSH Acute PFSH: Medical History (Updated 03/08/20 @ 18:59 by Gume Velazquez MD) Anxiety COPD (chronic obstructive pulmonary disease) Surgical History (Updated 03/08/20 @ 18:57 by Gume Velazquez MD) H/O eye surgery Family History (Updated 03/08/20 @ 18:58 by Gume Velazquez MD) Mother Asthma Father Prostate cancer Social History (Updated 03/08/20 @ 18:58 by Gume Velazquez MD) Smoking and tobacco status: former smoker Alcohol intake: current Substance/Drug Use: never Vitals/I&O/Wt Last Vital Signs Temp 97.8 F 03/08/20 15:34 Pulse 115 H 03/08/20 18:00 Resp 26 H 03/08/20 18:00 BP 175/103 03/08/20 17:55 Pulse Ox 97 03/08/20 18:00 Weight last 48 hrs Weight 75.75 kg Physical Exam Narrative: EXAM NARRATIVE: Quite anxious appearing, hyper respirating Const: COMMON NORMALS: no acute distress and patient oriented x3 GENERAL APPEARANCE: cooperative and comfortable HENMT: COMMON NORMALS: normocephalic HEAD & SCALP: normocephalic Eye: COMMON NORMALS: Equal, round and reactive pupils present, EOMs intact bilaterally and no papilledema GENERAL EYE: appearance normal, both eyes and all related structures PUPIL: Yes Equal, round and reactive pupils present DIRECT OPHTHALMOSCOPY: Yes no papilledema Neck/C-Spine: COMMON NORMALS: full ROM, no lymphadenopathy, no JVD and Thyroid normal THYROID: Thyroid normal Lymph: LYMPHATIC: no lymphadenopathy noted Resp: COMMON NORMALS: normal respiratory effort, No retractions, No use of accessory muscles and clear to auscultation bilaterally AUSCULTATION: clear to auscultation bilaterally Cardio: COMMON NORMALS: no JVD, regular rate, regular rhythm, S1 normal heart sound present, S2 normal heart sound present, No gallops present (Cardio), No clicks present (Cardio) and No murmurs present (Cardio) RATE: regular rate RHYTHM: regular rhythm HEART SOUNDS: S1 normal heart sound present and S2 normal heart sound present GI: COMMON NORMALS: Normal to inspection, nondistended, normoactive bowel sounds present, Soft to palpation, non-tender and No hepatosplenomegaly present PALPATION: Yes Soft to palpation and Yes No hepatosplenomegaly present Extremity: COMMON NORMALS: normal to inspection, full ROM and no pedal edema Neuro: COMMON NORMALS: patient oriented x3, CN's II-XII intact bilaterally, moves all extremities and no focal motor deficits Psych: COMMON NORMALS: mental status grossly normal, Normal thought process present and cooperative MOOD & AFFECT: Yes anxious THOUGHT PROCESS: Normal thought process present Data : 03/08/20 16:13 03/08/20 16:13 A&P Assessment and plan (1) Acute hypercapnic respiratory failure: Likely secondary to severe anxiety, over current diagnosis, and COPD ABG is improved, but PCO2 remains in the 60s, pH 7.32 Plan Continue BiPAP Use Ativan minimally for anxiety episodes Solu-Medrol DuoNeb treatment Advair, albuterol Monitor respiratory status closely Lovenox for DVT prophylaxis Full code Status: Acute (2) Prostate cancer: CT abdomen and pelvis showed: 1. Enlarged inhomogenous prostate. Given the other findings, underlying prostate malignancy is not excluded. 2. Retroperitoneal and bilateral iliac chain lymphadenopathy. This is suspicious for metastatic disease or lymphoma. 3. Diffuse mottled sclerotic appearance throughout the skeleton. This can be seen with metastatic prostate cancer and chronic renal disease or other metabolic disorder. -Will order PSA, serum and and urine protein electrophoresis, beta microglobulin, LDH -Findings could represent prostate cancer,Less likely multiple myeloma, possible lymphoma -We will discuss with hematology oncology tomorrow morning Status: Acute (3) COPD (chronic obstructive pulmonary disease): Status: Acute Qualifiers: COPD type: unspecified COPD Qualified Code(s): J44.9 - Chronic obstructive pulmonary disease, unspecified (4) Generalized weakness: Status: Acute (5) Anxiety: Status: Acute (6) Abnormal laboratory test: Status: Acute Attestations Medical Necessity Statement*: Patient requires hospitalization, patient with observation, acute hypercapnic respiratory failure, prostate cancer newly diagnosed, with diffuse metastasis Coding Level of Care Code Acute Wing Commander for [facility] Diagnoses Acute hypercapnic respiratory failure J96.02 Prostate cancer C61 COPD (chronic obstructive pulmonary disease) J44.9 COPD type: unspecified COPD Generalized weakness R53.1 Anxiety F41.9 Abnormal laboratory test R89.9
[2020-03-08] MEDS: ipratropium-albuterol 3 mL Neb INHALATION (21:06)
[2020-03-08] MEDS: morphine 4 mg/mL SDV 1 mL 1 MG IVP (21:11)
[2020-03-08 21:14] LABS: HIV 1 & 2 Antibody Non-Reactive (Non-Reactiv); HIV 1 & 2 Antigen Non-Reactive (Non-Reactiv)
[2020-03-08 21:24] LABS: LAB Peripheral Smear Sent for Review
[2020-03-08 21:28] LABS: Hepatitis A Antibody IgM Non-Reactive (Nonreactive); Hepatitis B Core IgM Non-Reactive (Nonreactive); Hepatitis B Surface Antigen Non-Reactive (Nonreactive); Hepatitis C Virus Antibody Non-Reactive (Nonreactive)
[2020-03-08 21:42] LABS: Lactate Dehydrogenase 644 U/L (135-225)
[2020-03-08] MEDS: sodium chloride 0.9% 1,000 ML 100 ML IV (21:51)
--- NOTE | 2020-03-08 21:56 | ECG_ITS ---
[facility] Test Date: 2020-03-08 Pat Name: Bartolo Lopez Department: Room: 260 Gender: Male Almond Paste Mixer: : 1950 Requested By: Dank Cooney Order Number: [id number] Henrry MD: Deborah Valencia M.D. Measurements Intervals [place] Rate: 90 P: 88 GA: 162 QRS: 58 QRSD: 101 T: 66 QT: 356 QTc: 437 Interpretive Statements SINUS RHYTHM POSSIBLE ANTERIOR MYOCARDIAL INFARCTION [30 ms Q WAVE IN V3/V4, OR R < 0.2 mV IN V4], OF INDETERMINATE AGE PROBABLE INFERIOR MYOCARDIAL INFARCTION [35 ms Q WAVE IN II/aVF], PROBABLY OLD MODERATE T-WAVE ABNORMALITY, CONSIDER LATERAL ISCHEMIA [-0.1+ mV T WAVE IN I/aVL/V5/V6] Compared to ECG 03/08/2020 18:03:01 Myocardial infarct finding now present T-wave abnormality now present Possible ischemia now present Sinus tachycardia no longer present Electronically Signed On 03-10-2020 18:07:20 UNHAIRING MACHINE OPERATOR by Deborah Valencia M.D. [id number]
[2020-03-08 22:13] LABS: Glucose Point of Care 139 mg/dL (70-110)
[2020-03-08 22:39] LABS: Troponin 5 6HR 28.65 ng/L (0-15); Troponin 5 6HR Delta 6.65 ng/L (0-12)
[2020-03-08 22:58] LABS: Ferritin 5059 ng/mL (30-400)
[2020-03-08] MEDS: insulin regular-human 10 UNIT in SYRINGE 1 EACH 5.8 UNIT IVP (23:22)
[2020-03-08] MEDS: dextrose 50% syringe 50 mL IVP (23:35)
[2020-03-09] VITALS (18 sets, daily range): BP systolic 124–153; BP diastolic 81–101; PULSE 86–98; RESP 16–22; TEMP 36.4–37.2; O2SAT 91–99
[2020-03-09] MEDS: sodium polystyrene sulfonate 15 gm/60 mL Btl 10 GM PO (00:49)
--- NOTE | 2020-03-09 03:27 | PC.NURSE ---
Bipap: Pt came up from the ER on 5L NC and was visibly sort of breath using accessory muscles and pursed lip breathing. Other than tachypenia and HR 108 all other VSS including SPO2. The pt was c/o severe pain. Ativan and Morphine was discussed and they chose to try the Morphine first and then Ativan if needed. Upon reassessment the pt was resting comfortably and his said that he had not slept well in 8 weeks and did not want to wake him to place Bipap or do a shift assessment. Will allow for rest and group activities to minimize waking the pt.
[2020-03-09 04:32] LABS: ABG PCO2 57.2 mmHg (35-45); ABG PH Result 7.34 (7.35-7.45); Arterial Blood Gas Hematocrit 29.9 % (42-52); Base Excess ABG 3.9 mmol/L (-2.0-2.0); Blood Gas Sample Site Brachial, right; Blood Gas Sample Type Arterial; HCO3 ABG 30.6 mmol/L (22-26); Oxygen Device NC
[2020-03-09] MEDS: morphine 4 mg/mL SDV 1 mL 1 MG IVP (05:06)
--- NOTE | 2020-03-09 05:25 | PC.RESP ---
Pt came from the ER on 5lpm via nasal cannula. Upon arrival to the pt's room I decreased the patient's oxygen to his baseline at home of 2lpm via nasal cannula. Pt had complaints of pain, and when I spoke with the charge nurse, her plan was to administer morphine, and possibly ativan. The morphine seemed to help slow down the pt's work of breathing, and his heart rate; as for he was purse-lip breathing upon arrival. The pt continued to refuse the bipap throughout the night as for he stated that he just wanted to rest and have a break from the mask. Obi an AM ABG as ordered.
[2020-03-09 06:32] LABS: Basophils # 0.1 10^3/uL (0.0-0.1); Eosinophils # 0.1 10^3/uL (0.0-0.8); Eosinophils % 1.2 %; Hematocrit 34.3 % (42.0-52.0); Hemoglobin 10.2 g/dL (11.7-16.6); Lymphocytes # 1.4 10^3/uL (0.8-4.8); Lymphocytes % 28.3 %; Mean Corpuscular HGB Conc 29.7 g/dL (30.0-36.0); Mean Corpuscular Hemoglobin 28.1 pg (28.0-34.0); Mean Corpuscular Volume 94.5 fL (80-94); Mean Platelet Volume 12.9 fL (7.4-10.4); Monocytes # 0.6 10^3/uL (0.2-0.9); Monocytes % 12.2 %; Neutrophils # 2.44 10^3/uL (1.8-7.7); Neutrophils % 49.6 %; Nucleated Red Blood Cells # 0.2 /100WBC; Nucleated Red Blood Cells % 3.7 %; Platelet Count 78 10^3/cmm (130-400); Red Blood Count 3.63 10^6/uL (4.1-5.3); Red Cell Distribution Width 17.2 % (12.1-15.1); White Blood Count 4.9 10^3/uL (4.0-10.0)
[2020-03-09 06:40] LABS: Glucose Point of Care 215 mg/dL (70-110)
[2020-03-09 06:55] LABS: Alanine Aminotransferase 17 U/L (0-41); Albumin Level 3.6 g/dL (3.5-5.2); Alkaline Phosphatase 862 IU/L (40-130); Anion Gap 13.2 (5-19); Aspartate Amino Transferase 44 U/L (0-40); Blood Urea Nitrogen 20 mg/dL (8-23); Calcium 9.5 mg/dL (8.5-10.5); Carbon Dioxide 31 mmol/L (22-29); Chloride 93 mmol/L (98-107); Globulin 3.2 g/dL (1.3-4.6); Glucose 175 mg/dL (65-115); Osmolality Calculated 281 mOsm/kg (285-295); Potassium 5.2 mmol/L (3.5-5.1); Sodium 132 mmol/L (136-145); Total Bilirubin 0.5 mg/dL (0.15-1.2); Total Protein 6.8 g/dL (6.6-8.7)
--- NOTE | 2020-03-09 07:00 | USCV_ITS ---
Bartolo Lopez Age: 69 Gender: M : 1950 Exam Date: 03/09/2020 09:04 Ordering Phys: Gume Velazquez MD Technologist: Frankie Polanco Exam Location: [facility] [place] Indication: SOB BP: 153 / 96 HR: 102 Rhythm: Sinus Technical Quality: Adequate MEASUREMENTS (Male / Female) Normal Values 2D ECHO LV Diastolic Diameter PLAX 4.7 cm 4.2 - 5.9 / 3.9 - 5.3 cm LV Systolic Diameter PLAX 2.0 cm IVS Diastolic Thickness 0.9 cm 0.6 - 1.0 / 0.6 - 0.9 cm IVS Systolic Thickness 1.3 cm LVPW Diastolic Thickness 0.9 cm 0.6 - 1.0 / 0.6 - 0.9 cm LVPW Systolic Thickness 1.3 cm LVOT Diameter 2.3 cm LV Ejection Fraction 2D Teich 87.1 % LV Ejection Fraction MOD 2C 61.7 % LV Ejection Fraction 2C AL 63.8 % LA Diameter 3.8 cm LA Width 3.6 cm LA Height 4.5 cm RA Width 4.3 cm RA Height 4.2 cm Aorta at Sinotubular Diameter 3.4 cm M-MODE LV Diastolic Diameter MM 4.2 cm 4.2 - 5.9 / 3.9 - 5.3 cm LV Systolic Diameter MM 2.1 cm LV Ejection Fraction MM Teich 81.2 % IVS Diastolic Thickness MM 1.2 cm 0.6 - 1.0 / 0.6 - 0.9 cm IVS Systolic Thickness MM 1.7 cm LVPW Diastolic Thickness MM 1.3 cm 0.6 - 1.0 / 0.6 - 0.9 cm LVPW Systolic Thickness MM 2.3 cm RV Diastolic Diameter MM 2.0 cm Aortic Annulus Diameter 3.8 cm LA Ao Ratio MM 1.0 MV E Point Septal Separation 0.5 cm DOPPLER AV Peak Velocity 195.0 cm/s LVOT Peak Velocity 106.0 cm/s AV Area Cont Eq vti 2.8 cm squared AV Area Cont Eq pk 2.3 cm squared MV Area PHT 8.1 cm squared Mitral E to A Ratio 0.8 MV E' Velocity 49.5 cm/s Mitral E to MV E' Ratio 6.8 Mitral E to LV E' Lateral Ratio 5.1 Mitral E to LV E' Septal Ratio 10.0 TR Peak Velocity 352.7 cm/s TR Peak Gradient 49.7 mmHg Right Atrial Pressure 3.0 mmHg Pulmonary Artery Systolic Pressu 52.7 mmHg PV Peak Velocity 132.0 cm/s FINDINGS Left Ventricle Normal left ventricular size and systolic function, EF 64 %. No regional wall motion abnormalities. He was found to be tachycardic during the study. Right Ventricle The right ventricle is normal in size and function. Right Atrium The right atrium is normal in size. Left Atrium The left atrium is normal in size. Mitral Valve Thickened aortic valve. Aortic Valve Thickened aortic valve. Aortic valve sclerosis. Tricuspid Valve Trace tricuspid valve regurgitation. Pulmonic Valve Pulmonic valve not well visualized. Pericardium Normal pericardium without effusion. Aorta Normal ascending aorta dimension. CONCLUSIONS Normal left ventricular size and systolic function, EF 64 %. No regional wall motion abnormalities. Pt was found to be tachycardic during the study. Features of aortic valve sclerosis. There is no pericardial effusion. There are no intracardiac masses. No previous study is available for comparison. Dr Deborah Valencia MD FACC (Electronically Signed) Final Date: 09 March 2020 15:04 S
[2020-03-09 07:11] LABS: NT Pro B Type Natriuretic Pept 189 pg/mL (0-125); Procalcitonin 0.33 ng/mL (0-0.5); Thyroid Stimulating Hormone 2.09 uIU/mL (0.27-4.20)
[2020-03-09 07:22] LABS: Chol HDL Ratio 2.35 mg/dL (1.0-5.00); Cholesterol 160 mg/dL (0-200); HDL Cholesterol 68 mg/dL (60-100); LDL Cholesterol Calculated 71 mg/dL (50-129); LDL HDL Ratio 1.04 RATIO (0.00-3.22); Magnesium 2.1 mg/dL (1.7-2.3); Phosphorus 3.2 mg/dL (2.5-4.5); Triglycerides 104 mg/dL (0-150)
[2020-03-09] MEDS: LORazepam 2 mg/mL INJ 1 mL 0.5 MG IVP (07:29)
--- NOTE | 2020-03-09 07:29 | PC.NURSE ---
i reported the high bp to the nurse
[2020-03-09] MEDS: sodium chloride 0.9% 1,000 ML 100 ML IV (07:30)
[2020-03-09] MEDS: ipratropium-albuterol 3 mL Neb INHALATION ×4 (07:37→20:14)
[2020-03-09 07:39] LABS: Slide Review Slide Review Perform
[2020-03-09] MEDS: aspirin 81 mg Chew Tablet PO (08:48)
[2020-03-09] MEDS: sertraline 50 mg Tablet 75 MG PO (08:48)
[2020-03-09] MEDS: tamsulosin 0.4 mg Capsule PO (08:51)
[2020-03-09] MEDS: dextrose 50% syringe 50 mL IVP (08:51)
[2020-03-09 09:13] LABS: Estmated Average Glucose 137; Hemoglobin A1C 6.4 % (4.0-6.0)
--- NOTE | 2020-03-09 09:46 | PC.OT ---
OT note: Pt with potassium over 5.0. Will hold at this time.
[2020-03-09] MEDS: sodium polystyrene sulfonate 15 gm/60 mL Btl PO ×3 (09:53→20:47)
--- NOTE | 2020-03-09 10:08 | PC.CHAP ---
Pastoral Care Encounter/Spiritual Assessment Type of Contact [] Declined steam generating powerplant mechanic visit [] Patient/Family/Request visit [] Outpatient visit [] Follow-up visit [] Physician referral [] Code/Alert [x] Routine visit [] Staff referral [] Actively dying [] Patient sleeping [] Family support [] [] Out of room [] Palliative care [] [x] Receiving care in room [] Pre-surgical visit [] Trauma [] Long length of stay [] ICU visit [] Other: Relational/Emotional Strength [] Patient feels connected with others/family/visitors/staff [] Distress [] Loneliness/isolation [] Abandonment Spirituality of Patient [] Person of Stephanie [] Attends Rastafarian of their Stephanie [] Believes in Prayer [] Reads Bible or Confucianism materials [] There are Spiritual issues to be addressed Densitometrist Interventions [] Prayer [] Active listening [] Non-anxious presence [] Spiritual/emotional support [] Crisis/trauma care [] Spiritual counseling [] Bereavement support [] Provided bereavement packet [] Provided Bible/devotional materials [] Provided toy/stuffed animal, coloring book to patient or family member [] Provided Communion [] Anointing/[place] [] Salvation [] Completed spiritual assessment [] Other: Impact on Illness or Injury [] Angry [] Fearful [] Anxious [] Often cries [] Exhaustion [] Unable to work [] Unable to attend taoist [] Unable to walk/stand [] Unable to read [] Unable to drive [] Unable to eat/drink [] Unable to sleep [] Unable to be with family [] Patient intubated [] Other: Summary Time spent with patient
--- NOTE | 2020-03-09 11:10 | P.PN_ITS ---
Subjective Subjective: Interval history: Patient was examined this morning, he tells me that his breathing is better, he feels less anxious, no nausea, no vomiting, is on 4 L, still complains of back pain, no headache, no blurry vision Vitals/I&O/Wt Last Vital Signs Temp 97.6 F 03/09/20 07:28 Pulse 91 03/09/20 08:06 Resp 22 H 03/09/20 08:03 BP 151/101 03/09/20 07:28 Pulse Ox 99 03/09/20 08:03 03/08/20 03/09/20 03/09/20 22:59 06:59 14:59 Intake Total 1000 / 1000 965 / 965 Balance 1000 / 1000 965 / 965 Weight last 48 hrs Weight 75.75 kg Physical Exam Const: COMMON NORMALS: no acute distress and patient oriented x3 HENMT: COMMON NORMALS: normocephalic HEAD & SCALP: normocephalic Neck/C-Spine: COMMON NORMALS: no JVD Resp: COMMON NORMALS: normal respiratory effort, No retractions, No use of accessory muscles and clear to auscultation bilaterally AUSCULTATION: clear to auscultation bilaterally Cardio: COMMON NORMALS: no JVD, regular rate, regular rhythm, S1 normal heart sound present and S2 normal heart sound present RATE: regular rate RHYTHM: regular rhythm HEART SOUNDS: S1 normal heart sound present and S2 normal heart sound present GI: COMMON NORMALS: Normal to inspection, nondistended, normoactive bowel sounds present, Soft to palpation, non-tender, No hepatosplenomegaly present, no masses and no bruits PALPATION: Yes Soft to palpation and Yes No hepatosplenomegaly present Extremity: COMMON NORMALS: capillary refill normal, no clubbing, cyanosis or edema, no calf tenderness and no pedal edema Neuro: COMMON NORMALS: patient oriented x3 Psych: COMMON NORMALS: mental status grossly normal Data : 03/09/20 05:19 03/09/20 05:19 A&P Assessment and plan (1) Acute hypercapnic respiratory failure: Likely secondary to panic attack, over current prostate cancer diagnosis, and COPD ABG has improved, but PCO2 remains in the 60s, pH 7.32 Plan Continue BiPAP as needed during the day, schedule during the night Use Ativan 0.25 mg IV push every 8 hours minimally for anxiety episodes Solu-Medrol DuoNeb treatment Advair, albuterol Monitor respiratory status closely Lovenox for DVT prophylaxis Full code Status: Acute (2) Prostate cancer: CT abdomen and pelvis showed: 1. Enlarged inhomogenous prostate. Given the other findings, underlying prostate malignancy is not excluded. 2. Retroperitoneal and bilateral iliac chain lymphadenopathy. This is suspicious for metastatic disease or lymphoma. 3. Diffuse mottled sclerotic appearance throughout the skeleton. This can be seen with metastatic prostate cancer and chronic renal disease or other metabolic disorder. -PSA over 1300 -We will discuss with hematology oncology, discussed with urology -serum and and urine protein electrophoresis, beta microglobulin, LDH -Findings could represent prostate cancer,Less likely multiple myeloma, possible lymphoma Status: Acute (3) COPD (chronic obstructive pulmonary disease): Status: Acute (4) Generalized weakness: Left PT OT worked with patient Status: Acute (5) Anxiety: Status: Acute (6) Abnormal laboratory test: Status: Acute (7) Thrombocytopenia: -Etiology unclear at this point but could be related to fatty liver disease -CT scan of the abdomen showed focal fatty infiltration in the liver left lobe -HIV, hep panel negative -ADELA pending -Monitor platelet count Status: Acute (8) Type 2 diabetes mellitus: -Hemoglobin A1c 6.4, new onset type 2 diabetes -Continue sliding scale as on prednisone -Discharged on Metformin Status: Acute Additional A&P Information Hyperkalemia, will receive insulin and D50 replacement Hyponatremia, likely secondary to hyperglycemia Anemia, hemoglobin 10.2, likely related to prostate malignancy, continue to monitor Attestations Medical Necessity Statement*: Patient requires hospitalization, inpatient, greater than 2 midnights, for acute respiratory failure secondary to COPD, anxiety, newly diagnosed diffusely metastatic prostate cancer Coding Level of Care Code Acute 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
[2020-03-09] MEDS: amlodipine 10 mg Tablet PO (11:28)
[2020-03-09 12:03] LABS: Glucose Point of Care 245 mg/dL (70-110)
--- NOTE | 2020-03-09 12:33 | PM.CONSULT ---
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 He was admitted to the hospital for exacerbation of COPD. He was also having increasing back pain that began approximately 2 months ago. He considers himself in good health other than the moderate COPD prior to that point. Has been complaining of some increasing lower urinary tract symptoms over the last month including frequency urgency small voids, urgency incontinence but no severe nocturia. Denied retention. The symptoms became significant enough that he began to wear protective pads to prevent soiling his clothes. During this hospital stay he had a lumbar CT scan done for refractory back pain. It showed findings suspicious for metastatic prostate cancer in the bones as well as in significantly enlarged retroperitoneal lymph nodes. A follow-up PSA was 1344. He reports his last ALISON and PSA was about 6 years ago and he thought both were normal. No one has been suspicious on his prostate cancer screening in the past. I was consulted for further evaluation and Dr. Lopez has been consulted over the phone as well. Recommended initiation of BICALUTAMIDE 50 mg daily, plan for prostate biopsy for genetic testing which could influence treatment options etc. Review of Systems Const: Reports: fatigue and malaise; Denies: fever(s) or chills Eyes: Denies: change in vision, blurry vision or eye discomfort ENMT: Denies: odynophagia Card: Denies: chest pain or palpitations Resp: Reports: dyspnea; Denies: productive cough, wheezing or hemoptysis GI: Reports: change in bowel habits; Denies: abdominal pain, nausea, vomiting, hematemesis, diarrhea, constipation, hematochezia or melena : Denies: flank pain, difficulty urinating, dysuria or urinary frequency Musc: Reports: back pain (Severe low back pain); Denies: joint redness or joint warmth Skin/Breast: Denies: rash or changing lesions Neuro: Denies: numbness in extremities, Slurred speech present or seizure-like activity Psych: Reports: anxiety; Denies: hopelessness Endo: Denies: polyuria, polydipsia or flushing Srikanth/Lymph: Denies: easy bruising, easy bleeding or enlarged lymph nodes All/Imm: Denies: urticaria or acute wheezing Meds/Allergies Home Medications and Allergies Home Medications Medication Instructions Recorded Confirmed Last Taken Type duloxetine 30 mg capsule,delayed 30 mg PO DAILY@12 03/07/20 03/08/20 03/08/20 History release fluticasone 500 mcg-salmeterol 50 1 inh INHALATION BID #60 ea 03/07/20 03/08/20 03/07/20 Rx mcg/dose blistr powdr for inhalation ipratropium bromide 18 1 puff INHALATION BID 03/07/20 03/08/20 Unknown History mcg/actuation aerosol inhaler sertraline 100 mg tablet 75 mg PO DAILY tab 03/07/20 03/08/20 03/07/20 History acetaminophen [Tylenol] 500 mg PO Q4H PRN 03/08/20 03/09/20 03/08/20 History aspirin 81 mg PO DAILY 03/08/20 03/08/20 03/07/20 History buspirone 7.5 mg PO BID PRN 03/08/20 03/08/20 Unknown History diazepam 5 mg PO DAILY #1 tab 03/09/20 Unknown Rx hydrocodone-acetaminophen [[place]] 1 tab PO DAILY #1 tab 03/09/20 Unknown Rx Allergies Allergy/AdvReac Type Severity Reaction Status Date / Time No Known Allergies Allergy Verified 03/07/20 08:13 Current Medications Current Medications Generic Name Dose Route Start Last Admin Trade Name Freq PRN Reason Stop Dose Admin Albuterol/Ipratropium 3 ml 03/08/20 20:41 03/09/20 11:24 Ipratropium-Albuterol 3 Ml Neb INHALATION 3 ml QID.RESPIRATORY DEVYN Administration Amlodipine Besylate 10 mg 03/09/20 11:30 03/09/20 11:28 Amlodipine 10 Mg Tablet PO 10 mg DAILY DEVYN Administration Bicalutamide 50 mg 03/09/20 12:15 03/09/20 11:54 Bicalutamide 50 Mg Tablet PO 50 mg Q24H DEVYN Administration Insulin Aspart 0 unit 03/09/20 12:00 03/09/20 11:54 Insulin Aspart 100 Unit/1 Ml SUBCUT 6 unit TIDWM DEVYN Administration Protocol Methylprednisolone Sodium Succinate 40 mg 03/09/20 08:00 03/09/20 07:30 Methylprednisolone Sod Succ 40 Mg/Ml Inj IVP 40 mg Q24H DEVYN Administration Fluticasone/Salmeterol 1 puff 03/09/20 09:00 03/09/20 08:02 Fluticasone-Salmeterol 500-50 Diskus INHALATION 1 puff BID DEVYN Administration Sertraline HCl 75 mg 03/09/20 09:00 03/09/20 08:48 Sertraline 50 Mg Tablet PO 75 mg DAILY DEVYN Administration Sodium Polystyrene Sulfonate 15 gm 03/09/20 09:30 03/09/20 09:53 Sodium Polystyrene Sulfonate 15 Gm/60 Ml Btl PO 15 gm Q6H DEVYN Administration Tamsulosin HCl 0.4 mg 03/09/20 09:00 03/09/20 08:51 Tamsulosin 0.4 Mg Capsule PO 0.4 mg DAILY DEVYN Administration PFSH Acute PFSH: Medical History (Updated 03/09/20 @ 12:39 by Saumel Cosby MD) Anxiety COPD (chronic obstructive pulmonary disease) Surgical History (Updated 03/08/20 @ 18:57 by Gume Velazquez MD) H/O eye surgery Family History (Updated 03/08/20 @ 18:58 by Gume Velazquez MD) Mother Asthma Father Prostate cancer Social History (Updated 03/08/20 @ 18:58 by Gume Velazquez MD) Smoking and tobacco status: former smoker Alcohol intake: current Substance/Drug Use: never Vitals/I&O/Wt Last Vital Signs Temp 98.4 F 03/09/20 11:26 Pulse 94 03/09/20 11:27 Resp 16 03/09/20 11:26 BP 127/81 03/09/20 11:26 Pulse Ox 99 03/09/20 11:26 03/08/20 03/09/20 03/09/20 22:59 06:59 14:59 Intake Total 1000 / 1000 965 / 965 Balance 1000 / 1000 965 / 965 Weight last 48 hrs Weight 167 lb Physical Exam Const: COMMON NORMALS: no acute distress, alert and well nourished GENERAL APPEARANCE: well kempt and well developed ORIENTATION/CONSCIOUSNESS: not confused HENMT: COMMON NORMALS: normocephalic and atraumatic HEAD & SCALP: normocephalic and atraumatic Eye: COMMON NORMALS: conjunctivae normal and no scleral icterus CONJUNCTIVA: Yes conjunctivae normal Neck/C-Spine: COMMON NORMALS: full ROM GENERAL: Yes normal visual inspection Resp: COMMON NORMALS: normal respiratory effort EFFORT & INSPECTION: No Actively coughing Neuro: SENSORIUM/ORIENTATION: Yes alert Psych: COMMON NORMALS: mental status grossly normal APPEARANCE: Yes grossly normal and Yes well kempt ATTITUDE: Yes calm and Yes engaged Skin: COMMON NORMALS: no rashes or lesions noted and no jaundice GENERAL SKIN EXAM: no rashes or lesions noted A&P Assessment and plan (1) Prostate cancer: PSA 1344, metastatic lesions in the bone as well as retroperitoneal lymph nodes consistent with metastatic prostate cancer. ALISON suspicious as well. Recommend initiation OF BICALUTAMIDE 50 mg daily and biopsy next week. I have included prescriptions in his discharge orders. 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
--- NOTE | 2020-03-09 15:54 | PC.RESP ---
Pulmonary Rehab information sent to patient.
[2020-03-09 17:01] LABS: Glucose Point of Care 165 mg/dL (70-110)
[2020-03-09] MEDS: enoxaparin 40 mg/0.4 mL Syringe SUBCUT (17:35)
[2020-03-09 20:02] LABS: Glucose Point of Care 173 mg/dL (70-110)
--- NOTE | 2020-03-09 20:48 | PC.NURSE ---
Patient and state that patient had a large liquid bowel movement. Patient did not want to take this dose of Kayexalalte encouraged patient to so that his potassium would come down to a safe level. Patient agreed to this dose but does not want to take anymore after that. Patient at bedside.
[2020-03-10] VITALS (15 sets, daily range): BP systolic 119–154; BP diastolic 70–90; PULSE 77–96; RESP 16–20; TEMP 36.6–36.9; O2SAT 93–97
--- NOTE | 2020-03-10 04:18 | PC.NURSE ---
Patient refused his 3:30 dose of Kayexalate.
[2020-03-10 04:39] LABS: ABG PH Result 7.35 (7.35-7.45); Arterial Blood Gas Hematocrit 28.1 % (42-52); Base Excess ABG 7.6 mmol/L (-2.0-2.0); Blood Gas Operator Identificat HARKR; Blood Gas Sample Site Brachial, right; Blood Gas Sample Type Arterial; HCO3 ABG 34.5 mmol/L (22-26); Oxygen Device NC; PO2 ABG 60.2 mmHg (80.0-100.0)
[2020-03-10 05:00] LABS: Hematocrit 30.2 % (42.0-52.0); Hemoglobin 8.9 g/dL (11.7-16.6); Mean Corpuscular HGB Conc 29.5 g/dL (30.0-36.0); Mean Corpuscular Hemoglobin 28.1 pg (28.0-34.0); Mean Corpuscular Volume 95.3 fL (80-94); Mean Platelet Volume 11.7 fL (7.4-10.4); Platelet Count 79 10^3/cmm (130-400); Red Blood Count 3.17 10^6/uL (4.1-5.3); Red Cell Distribution Width 17.3 % (12.1-15.1); White Blood Count 4.3 10^3/uL (4.0-10.0)
[2020-03-10 05:35] LABS: Magnesium 2.2 mg/dL (1.7-2.3); Phosphorus 2.8 mg/dL (2.5-4.5)
[2020-03-10 05:37] LABS: Alanine Aminotransferase 20 U/L (0-41); Albumin Level 3.1 g/dL (3.5-5.2); Alkaline Phosphatase 629 IU/L (40-130); Anion Gap 10.9 (5-19); Aspartate Amino Transferase 30 U/L (0-40); Blood Urea Nitrogen 18 mg/dL (8-23); Calcium 8.9 mg/dL (8.5-10.5); Carbon Dioxide 34 mmol/L (22-29); Chloride 96 mmol/L (98-107); Globulin 2.7 g/dL (1.3-4.6); Glucose 129 mg/dL (65-115); Osmolality Calculated 288 mOsm/kg (285-295); Potassium 3.9 mmol/L (3.5-5.1); Sodium 137 mmol/L (136-145); Total Bilirubin 0.2 mg/dL (0.15-1.2); Total Protein 5.8 g/dL (6.6-8.7)
[2020-03-10 05:45] LABS: Procalcitonin 0.22 ng/mL (0-0.5)
[2020-03-10 06:01] LABS: Slide Review Slide Review Perform
[2020-03-10 06:02] LABS: Absolute Segmented Neutrophil 1.6 10/cmm (1.6-7.1); Band Neutrophils Absolute 0.6 10^3/cmm (0.0-1.2); Eosinophils 2 %; Lymphocytes 26 %; Monocytes Absolute 0.6 10^3/cmm (0.1-0.6); Segmented Neutrophils 37 %; Total Cells Counted 100 (0-100)
[2020-03-10 06:03] LABS: Absolute Neutrophil 2.2 10^3/cmm (1.4-6.5); Anisocytosis 1+; Corrected White Blood Count 3.9 10^3/cmm (4.8-10.8); Platelet Estimate Decreased (Normal); Polychromasia Trace
[2020-03-10 06:34] LABS: Glucose Point of Care 130 mg/dL (70-110)
--- NOTE | 2020-03-10 07:10 | PC.NURSE ---
Report to Shani LÓPEZ.
--- NOTE | 2020-03-10 07:18 | PC.NURSE ---
Patient's came to this nurse and expressed concern that patient is getting severely depressed. verbalized wanting a psych consult before patients leaves the hospital. Patient was recently diagnosed with prostate cancer and is experiencing more anxiety related to this diagnosis. Patient is complaining of shortness of breath will give PRN ativan to help with anxiety. Notified Doctor of patient's family's request.
[2020-03-10] MEDS: LORazepam 2 mg/mL INJ 1 mL 0.25 MG IVP (07:40)
[2020-03-10] MEDS: ipratropium-albuterol 3 mL Neb INHALATION ×4 (08:18→19:49)
[2020-03-10] MEDS: sertraline 50 mg Tablet 75 MG PO (08:22)
[2020-03-10] MEDS: tamsulosin 0.4 mg Capsule PO (08:26)
[2020-03-10] MEDS: amlodipine 10 mg Tablet PO (08:26)
[2020-03-10 09:18] LABS: PROTEIN, TOTAL 6.2 g/dL (6.1-8.1)
[2020-03-10] MEDS: oxyCODONE-APAP 5-325 mg Tablet 0.5 TAB PO (10:03)
--- NOTE | 2020-03-10 10:28 | PC.CHAP ---
Pastoral Care Encounter/Spiritual Assessment Type of Contact [] Declined public transit bus driver visit [] Patient/Family/Request visit [] Outpatient visit [] Follow-up visit [] Physician referral [] Code/Alert [x] Routine visit [] Staff referral [] Actively dying [] Patient sleeping [] Family support [] [] Out of room [] Palliative care [] [x] Receiving care in room [] Pre-surgical visit [] Trauma [] Long length of stay [] ICU visit [] Other: Relational/Emotional Strength [x] Patient feels connected with others/family/visitors/staff [] Distress [] Loneliness/isolation [] Abandonment Spirituality of Patient [x] Person of Stephanie [] Attends Zoroastrian of their Stephanie [x] Believes in Prayer [] Reads Bible or Adventist materials [] There are Spiritual issues to be addressed Badger Distiller Operator Interventions [x] Prayer [x] Active listening [x] Non-anxious presence [x] Spiritual/emotional support [] Crisis/trauma care [] Spiritual counseling [] Bereavement support [] Provided bereavement packet [] Provided Bible/devotional materials [] Provided toy/stuffed animal, coloring book to patient or family member [] Provided Communion [] Anointing/[place] [] Salvation [x] Completed spiritual assessment [] Other: Impact on Illness or Injury [] Angry [] Fearful [x] Anxious [] Often cries [] Exhaustion [] Unable to work [] Unable to attend rastafari [] Unable to walk/stand [] Unable to read [] Unable to drive [] Unable to eat/drink [] Unable to sleep [] Unable to be with family [] Patient intubated [] Other: Summary COPD, buttermaker illness, hopes to get better over time and go home for some kind of recoverey process, has a good attitude, his wfe was with him, Time spent with patient 10 mins
[2020-03-10 10:42] LABS: Glucose Point of Care 233 mg/dL (70-110)
--- NOTE | 2020-03-10 12:21 | PM.PN ---
Subjective Subjective: Interval history: This morning patient was examined, is at bedside, he tells me that he is feeling better, feeling less anxious, the Ativan seems to help, he is PCO2 is up to 62, denies lightheadedness, dizziness, nausea, vomiting, chest pain, or shortness of breath, back pain is minimal, Vitals/I&O/Wt Last Vital Signs Temp 98.0 F 03/10/20 11:59 Pulse 80 03/10/20 11:59 Resp 17 03/10/20 11:59 BP 129/81 03/10/20 11:59 Pulse Ox 97 03/10/20 11:59 03/09/20 03/10/20 03/10/20 22:59 06:59 14:59 Intake Total 240 / 1325 240 / 240 Output Total 300 / 300 Balance -60 / 1025 240 / 240 Weight last 48 hrs Weight 75.75 kg Physical Exam Const: COMMON NORMALS: no acute distress and patient oriented x3 HENMT: COMMON NORMALS: normocephalic HEAD & SCALP: normocephalic Neck/C-Spine: COMMON NORMALS: no JVD Resp: COMMON NORMALS: normal respiratory effort, No retractions, No use of accessory muscles and clear to auscultation bilaterally AUSCULTATION: clear to auscultation bilaterally Cardio: COMMON NORMALS: no JVD, regular rate, regular rhythm, S1 normal heart sound present and S2 normal heart sound present RATE: regular rate RHYTHM: regular rhythm HEART SOUNDS: S1 normal heart sound present and S2 normal heart sound present GI: COMMON NORMALS: Normal to inspection, nondistended, normoactive bowel sounds present, Soft to palpation, non-tender, No hepatosplenomegaly present, no masses and no bruits PALPATION: Yes Soft to palpation and Yes No hepatosplenomegaly present Extremity: COMMON NORMALS: capillary refill normal, no clubbing, cyanosis or edema, no calf tenderness and no pedal edema Neuro: COMMON NORMALS: patient oriented x3 Psych: COMMON NORMALS: mental status grossly normal Data : 03/10/20 04:40 03/10/20 04:40 Micro: Microbiology 03/08/20 16:51 Urine Culture - Final Urine,Clean Catch A&P Assessment and plan (1) Acute hypercapnic respiratory failure: Likely secondary to panic attack, over current prostate cancer diagnosis, and COPD ABG has improved, but PCO2 remains in the 60s, Plan Continue BiPAP with a different mask as needed during the day, schedule during the night We will do an overnight pulse ox Patient would clinically benefit from noninvasive mechanical ventilation, due to chronic hypercapnic respiratory failure secondary to COPD Patient would benefit from a hospital bed, keep head of bed elevated 30 degrees, due to COPD, chronic hypercapnic respiratory failure Use Ativan 0.5 to 1 mg p.o. every 12 hours as needed for anxiety episodes Solu-Medrol DuoNeb treatment Advair, albuterol Monitor respiratory status closely Lovenox on hold due to anemia, SCDs Full code Status: Acute (2) Prostate cancer: CT abdomen and pelvis showed: 1. Enlarged inhomogenous prostate. Given the other findings, underlying prostate malignancy is not excluded. 2. Retroperitoneal and bilateral iliac chain lymphadenopathy. This is suspicious for metastatic disease or lymphoma. 3. Diffuse mottled sclerotic appearance throughout the skeleton. This can be seen with metastatic prostate cancer and chronic renal disease or other metabolic disorder. -PSA over 1300 -We will discuss with hematology oncology, discussed with urology -serum and and urine protein electrophoresis, beta microglobulin, LDH -Patient's peripheral smear did show some myelodysplasia features, flow cytometry ordered, follow-up as outpatient with hematology oncology -Findings could represent prostate cancer,Less likely multiple myeloma, possible lymphoma -Urology consulted -Patient has been started on Casodex 50 mg every 24 hours -All Ultram 25 mg p.o. every 6 as needed for back pain, oxycodone 5 0.5 tablets every 8 UT as needed for back pain, monitor respiratory status closely, Narcan Status: Acute (3) COPD (chronic obstructive pulmonary disease): Status: Acute (4) Generalized weakness: Left PT OT worked with patient Status: Acute (5) Anxiety: Patient has complaints of worsening Dev, given diagnosis as above, consult psychiatry Status: Acute (6) Abnormal laboratory test: Status: Acute (7) Thrombocytopenia: -Etiology unclear at this point but could be related to fatty liver disease -CT scan of the abdomen showed focal fatty infiltration in the liver left lobe -HIV, hep panel negative -ADELA pending -Monitor platelet count Status: Acute (8) Type 2 diabetes mellitus: -Hemoglobin A1c 6.4, new onset type 2 diabetes -Continue sliding scale as on prednisone -Discharged on Metformin Status: Acute (9) Anemia: Hemoglobin has decreased to 8.9 from 10.2, MCV 95.3 We will do B12, folate, ferritin, iron Other factors include anemia chronic disease related to prostate cancer Hold Lovenox for now Protonix and Carafate just in case it is a slow GI bleed Status: Acute Attestations Medical Necessity Statement*: Patient requires hospitalization and due to hypercarbic respiratory failure secondary COPD, diffusely metastatic prostate cancer, anemia Coding Level of Care Code Acute Gr[employer] 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
[2020-03-10 12:29] LABS: Beta-2-Microglobulin 2.48 mg/L (< OR = 2.51)
[2020-03-10 13:29] LABS: ALBUMIN 2.7 g/dL (3.8-4.8); ALPHA 1 GLOBULIN 0.8 g/dL (0.2-0.3); ALPHA 2 GLOBULIN 1.4 g/dL (0.5-0.9); BETA 1 GLOBULIN 0.4 g/dL (0.4-0.6); BETA 2 GLOBULIN 0.4 g/dL (0.2-0.5); GAMMA GLOBULIN 0.5 g/dL (0.8-1.7)
[2020-03-10 14:13] LABS: Iron 75 ug/dL (59-158)
[2020-03-10] MEDS: sucralfate 1 gm Tablet PO (14:17)
[2020-03-10] MEDS: pantoprazole DR 40 mg Tablet PO (14:18)
[2020-03-10 14:28] LABS: Vitamin B12 1006 pg/mL (232-1245)
[2020-03-10 14:30] LABS: Folate Level 7.4 ng/mL (4.5-32.2)
[2020-03-10 15:34] LABS: Creatinine, Random Urine 182 mg/dL (20-320); Protein, Total, Random 109 mg/dL (5-25); Protein/Creatinine Ratio 0.599 (0.022-0.128); Protein/Creatinine Ratio 599 mg/g creat (22-128)
[2020-03-10 16:10] LABS: Glucose Point of Care 184 mg/dL (70-110)
[2020-03-10 20:42] LABS: Glucose Point of Care 181 mg/dL (70-110)
--- NOTE | 2020-03-10 23:36 | PC.NURSE ---
In room because patient's came to the desk and states, Can you just turn that machine off. She told him he could take it off if he could not tolerated it. In room explained to patient and that I would silence the machine but that I had already contacted respiratory to come and finish tuning it off. Patient was supposed to be doing a sleep study and I did not want to erase any of the setting by shutting off the machine. This film writer also attempted to fix court monitor and patient states, I don't need to wear that either. I just want some sleep. I do not mean to be difficult by I do not feel like completing that machine study tonight.'' Respiratory at bedside to turn off machine.
[2020-03-10 23:44] LABS: Glucose Point of Care 106 mg/dL (70-110)
[2020-03-11] VITALS (9 sets, daily range): BP systolic 130–171; BP diastolic 77–89; PULSE 81–90; RESP 18–20; TEMP 36.6–37.2; O2SAT 93–97
[2020-03-11 04:02] LABS: ABG PCO2 59.7 mmHg (35-45); Arterial Blood Gas Hematocrit 27.4 % (42-52); Base Excess ABG 10.4 mmol/L (-2.0-2.0); Blood Gas Allen Test Pos; Blood Gas Sample Type Arterial; HCO3 ABG 36.8 mmol/L (22-26); PO2 ABG 67.8 mmHg (80.0-100.0)
[2020-03-11 04:03] LABS: Blood Gas Operator Identificat HARKR; Blood Gas Sample Site Radial, right; Oxygen Device NC
[2020-03-11 04:45] LABS: Basophils % 0.3 %; Hematocrit 28.2 % (42.0-52.0); Hemoglobin 8.5 g/dL (11.7-16.6); Lymphocytes # 1.1 10^3/uL (0.8-4.8); Lymphocytes % 28.3 %; Mean Corpuscular HGB Conc 30.1 g/dL (30.0-36.0); Mean Corpuscular Hemoglobin 28.6 pg (28.0-34.0); Mean Corpuscular Volume 94.9 fL (80-94); Mean Platelet Volume 11.2 fL (7.4-10.4); Monocytes # 0.5 10^3/uL (0.2-0.9); Monocytes % 13.9 %; Neutrophils # 1.78 10^3/uL (1.8-7.7); Neutrophils % 45.7 %; Nucleated Red Blood Cells # 0.5 /100WBC; Nucleated Red Blood Cells % 11.6 %; Platelet Count 77 10^3/cmm (130-400); Red Blood Count 2.97 10^6/uL (4.1-5.3); Red Cell Distribution Width 17.2 % (12.1-15.1); White Blood Count 3.9 10^3/uL (4.0-10.0)
[2020-03-11 05:09] LABS: Alanine Aminotransferase 19 U/L (0-41); Alkaline Phosphatase 545 IU/L (40-130); Anion Gap 10.8 (5-19); Aspartate Amino Transferase 20 U/L (0-40); Blood Urea Nitrogen 18 mg/dL (8-23); Calcium 8.9 mg/dL (8.5-10.5); Carbon Dioxide 34 mmol/L (22-29); Chloride 98 mmol/L (98-107); Globulin 2.6 g/dL (1.3-4.6); Glucose 109 mg/dL (65-115); Osmolality Calculated 290 mOsm/kg (285-295); Potassium 3.8 mmol/L (3.5-5.1); Sodium 139 mmol/L (136-145); Total Bilirubin 0.3 mg/dL (0.15-1.2); Total Protein 5.6 g/dL (6.6-8.7)
[2020-03-11 05:11] LABS: Magnesium 2.2 mg/dL (1.7-2.3); Phosphorus 2.6 mg/dL (2.5-4.5)
[2020-03-11 05:13] LABS: Procalcitonin 0.16 ng/mL (0-0.5)
[2020-03-11] MEDS: LORazepam 0.5 mg Tablet PO (06:29)
[2020-03-11 06:37] LABS: Glucose Point of Care 115 mg/dL (70-110)
[2020-03-11 07:12] LABS: Slide Review Slide Review Perform
[2020-03-11] MEDS: ipratropium-albuterol 3 mL Neb INHALATION ×2 (07:25→11:18)
--- NOTE | 2020-03-11 07:34 | PC.NURSE ---
Report Yolette VALLE
--- NOTE | 2020-03-11 09:00 | PC.NURSE ---
Patient refusing kayexalate, states I don't need that. at bedside agreeing with patient.
[2020-03-11] MEDS: pantoprazole DR 40 mg Tablet PO (09:16)
[2020-03-11] MEDS: lisinopril 20 mg Tablet PO (09:16)
[2020-03-11] MEDS: tamsulosin 0.4 mg Capsule PO (09:16)
[2020-03-11] MEDS: amlodipine 10 mg Tablet PO (09:16)
[2020-03-11] MEDS: sertraline 50 mg Tablet 75 MG PO (09:16)
[2020-03-11 09:18] LABS: Albumin,Urine Random 46 %; Alpha-1-Globulins Urine Random 2 %; Alpha-2-Globulins Urine Random 26 %; Beta-Globulin,Urine Random 16 %; Gamma Globulin,Urine Random 10 %
[2020-03-11 10:24] LABS: COMPLEMENT COMPONENT C3C 166 mg/dL (82-185); COMPLEMENT COMPONENT C4C 17 mg/dL (15-53)
--- NOTE | 2020-03-11 10:42 | PM.DCS ---
Discharge Providers Date of Admission: 03/09/20 08:10 Date of Discharge: March 11, 2020 Attending Provider at Admission: Gume Velazquez MD Attending Provider at Discharge: Gume Velazquez MD Primary Care Provider: Sridevi Summers MD Diagnoses at Discharge Discharge Diagnosis (1) Acute hypercapnic respiratory failure: Status: Acute (2) Prostate cancer: Status: Acute (3) COPD (chronic obstructive pulmonary disease): Status: Acute (4) Generalized weakness: Status: Acute (5) Anxiety: Status: Acute (6) Abnormal laboratory test: Status: Acute (7) Thrombocytopenia: Status: Acute (8) Type 2 diabetes mellitus: Status: Acute (9) Anemia: Status: Acute Reason for Visit Reason for Visit: sob/back pain Hospital Course Hospital Course 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 Patient PCO2's are chronically in the 50s, I tried various types of BiPAP masks, for patient, however he was not able to tolerate therapy, I also ordered a pulse ox during the night to see if he would qualify for BiPAP, however patient did not want to do the testing Patient clinically improved, down to his home 2 L, PCO2 on discharge was 59 Patient would benefit from a sleep study, home CPAP I had an extensive discussion with patient, and he is aware already, given his COPD, he has a high risk of hypercarbia and respiratory depression given opiate and benzodiazepines But a significant issue is his anxiety, when he has panic attacks he tends to hyper respirate leading to worsening of hypercarbia And when he has back pain, he tends to hyper respirate, leading to hypercarbia Thus finding the balance between treating his anxiety and his pain versus risk of respiratory depression hypercarbia was managed here in the hospital I have discharged him on a low-dose oxycodone 5-325 a tablet every 8 hours as needed for diffuse metastatic pain related to prostate cancer I had tried multiple benzodiazepines as inpatient, however what worked for patient was lorazepam, I have discharged him on lorazepam 0.5 mg tablet, half a tablet to a full tablet equal to 1 mg, every 8 hours as needed for anxiety I have had an extensive discussion about the risks and benefits of using opiate and benzodiazepines given his COPD and hypercarbia, advised to use medication sparingly, advised the risk and benefits, morbidity and mortality associated, respiratory depression associated, hypercarbia associated, voiced understanding, all questions answered, agreed to proceed with medical therapy I have advised patient that if a were to have worsening shortness of breath, lightheadedness, dizziness, changes in his mentation this could be an indication of respiratory depression associated with pain medications and benzodiazepines as above, and he should go immediately to emergency room -Discharged on Levaquin for antibiotic coverage for the next 5 days, steroid burst, Advair, Spiriva, albuterol, with close follow-up with pulmonary as outpatient (2) Prostate cancer, with bony metastasis, bony pain, metastasis to retroperitoneal and iliac lymph nodes CT abdomen and pelvis showed: 1. Enlarged inhomogenous prostate. Given the other findings, underlying prostate malignancy is not excluded. 2. Retroperitoneal and bilateral iliac chain lymphadenopathy. This is suspicious for metastatic disease or lymphoma. 3. Diffuse mottled sclerotic appearance throughout the skeleton. This can be seen with metastatic prostate cancer and chronic renal disease or other metabolic disorder. -PSA over 1300 -Has anemia, thrombocytopenia, immature cells seen on peripheral smear, associate with metastatic disease, and bone marrow suppression and involvement associate with prostate cancer -serum and and urine protein electrophoresis, beta microglobulin, LDH -Patient's peripheral smear did show some myelodysplasia features, flow cytometry ordered, follow-up as outpatient with hematology oncology -Urology consulted, patient will have a prostate biopsy next week -Patient has been started on Casodex 50 mg every 24 hours, for 2 weeks -Oxycodone to be used sparingly as above for diffuse metastatic pain Status: Acute (3) COPD (chronic obstructive pulmonary disease): Status: Acute (4) Generalized weakness: Left PT OT worked with patient Status: Acute (5) Anxiety: Patient has complaints of worsening Dev, given diagnosis as above, consult psychiatry Status: Acute (6) Abnormal laboratory test: Status: Acute (7) Thrombocytopenia: -Likely related to bone marrow involvement of prostate cancer -CT scan of the abdomen showed focal fatty infiltration in the liver left lobe -HIV, hep panel negative -ADELA pending -Monitor platelet count Status: Acute (8) Type 2 diabetes mellitus: -Hemoglobin A1c 6.4, new onset type 2 diabetes, discharged on Metformin, glucometer testing kit -Continue sliding scale as on prednisone -Discharged on Metformin Status: Acute (9) Anemia: Hemoglobin has decreased to 8.5 from 10.2, MCV 95.3 B12 within normal limits, folate within normal limits, ferritin is high, iron low normal -Likely from bone marrow involvement from prostate cancer, bone marrow suppression -We will follow with Dr. Lopez on Saturday for repeat CBC in Physical Exam Const: COMMON NORMALS: no acute distress and patient oriented x3 HENMT: COMMON NORMALS: normocephalic HEAD & SCALP: normocephalic Neck/C-Spine: COMMON NORMALS: no JVD Resp: COMMON NORMALS: normal respiratory effort, No retractions, No use of accessory muscles and clear to auscultation bilaterally AUSCULTATION: clear to auscultation bilaterally Cardio: COMMON NORMALS: no JVD, regular rate, regular rhythm, S1 normal heart sound present and S2 normal heart sound present RATE: regular rate RHYTHM: regular rhythm HEART SOUNDS: S1 normal heart sound present and S2 normal heart sound present GI: COMMON NORMALS: Normal to inspection, nondistended, normoactive bowel sounds present, Soft to palpation, non-tender, No hepatosplenomegaly present, no masses and no bruits PALPATION: Yes Soft to palpation and Yes No hepatosplenomegaly present Extremity: COMMON NORMALS: capillary refill normal, no clubbing, cyanosis or edema, no calf tenderness and no pedal edema Neuro: COMMON NORMALS: patient oriented x3 Psych: COMMON NORMALS: mental status grossly normal Discharge Data Data Completed and Pending: Completed Studies During Hospitalization Category Date Time Status CT angio chest w abd pel w con Stat Cat Scan 03/08/20 16:[address] lumbar spine w o con* [id number] Stat Cat Scan 03/08/20 15:59 Completed XR chest 1V madeline ble [id number] Stat Exams 03/08/20 15:47 Completed CV echo complete* [id number] Routine Ultrasound 03/09/20 07:00 Completed Pending at discharge Category Date Time Status ADELA Profile Rheum atology Stat Lab 03/08/20 21:40 Results Arterial Blood Ga s W/O Coox Routine Lab 03/08/20 22:00 Ordered Complete Blood Co unt w/Auto AM LABS Lab 03/12/20 04:00 Ordered Comprehensive Met abolic Panel AM LA BS Lab 03/12/20 04:00 Ordered Immunochemical Fe casi OCB Routine Lab 03/11/20 08:43 Ordered Miscellaneous Erica t Routine Lab 03/09/20 05:19 Received Type and Screen R outine Lab 03/11/20 10:10 Received Labs from last 24 hours 03/11/20 03/11/20 03/11/20 06:18 04:13 04:13 WBC 3.9 L RBC 2.97 L Hgb 8.5 L Hct 28.2 L MCV 94.9 H MCH 28.6 MCHC 30.1 RDW 17.2 H Plt Count 77 L MPV 11.2 H Neut % (Auto) 45.7 Lymph % (Auto) 28.3 Yates % (Auto) 13.9 Eos % (Auto) 1.0 Baso % (Auto) 0.3 Neut # (Auto) 1.78 L Lymph # (Auto) 1.1 Yates # (Auto) 0.5 Eos # (Auto) 0.0 Baso # (Auto) 0.0 Nucleated RBC % (a uto) 11.6 Nucleated RBCs # 0.5 Specimen Type Sample Site ABG pH ABG pCO2 ABG pO2 ABG HCO3 ABG Base Excess Avila Test Hematocrit O2 Delivery Device O2 Liters/Min Esol Teacher ID Sodium 139 Potassium 3.8 Chloride 98 Carbon Dioxide 34 H Anion Gap 10.8 BUN 18 Creatinine 0.6 L GFR Calculation Not Reportable Glucose 109 POC Glucose 115 H Calculated Osmolal ity 290 Calcium 8.9 Phosphorus Magnesium Iron Total Bilirubin 0.3 AST 20 ALT 19 Alkaline Phosphata se 545 H Total Protein 5.6 L Albumin 3.0 L Globulin 2.6 Peqzb-8-Sfbeizawf Ywwmy-9-Mjhnokspl Juug-2-Jaqxiasn Ctrh-9-Lmavlkrb Bsmh-6-Cblmrdsgmay in Gamma Globulins Abnorm Protein Ban d 1 Vitamin B12 Folate Procalcitonin Ur Random Creatini ne Ur Random Albumin U Random Total Pro tein Protein/Creatinin Ratio Protein/Creat Rati o 24h U Random a-1-Globu kenia % U Random a-2-Globu kenia % U Random Beta Glob ulin U Random Gamma Molly b U Abnormal Prot Ba nd 1 U Abnormal Prot Ba nd 2 U Abnormal Prot Ba nd 3 Urine PEP Interpre t Pro Electrophoresi s Int Complement C3c Complement C4c 03/11/20 03/11/20 03/11/20 04:13 04:13 03:55 WBC RBC Hgb Hct MCV MCH MCHC RDW Plt Count MPV Neut % (Auto) Lymph % (Auto) Yates % (Auto) Eos % (Auto) Baso % (Auto) Neut # (Auto) Lymph # (Auto) Yates # (Auto) Eos # (Auto) Baso # (Auto) Nucleated RBC % (a uto) Nucleated RBCs # Specimen Type Arterial Sample Site Radial, right ABG pH 7.40 ABG pCO2 59.7 H ABG pO2 67.8 L ABG HCO3 36.8 H ABG Base Excess 10.4 H Avila Test Pos Hematocrit 27.4 L O2 Delivery Device Nc O2 Liters/Min 2.0 Esol Teacher ID Harkr Sodium Potassium Chloride Carbon Dioxide Anion Gap BUN Creatinine GFR Calculation Glucose POC Glucose Calculated Osmolal ity Calcium Phosphorus 2.6 Magnesium 2.2 Iron Total Bilirubin AST ALT Alkaline Phosphata se Total Protein Albumin Globulin Qaedr-9-Fsgzsuqqb Ojics-0-Dgrosajui Xpcw-7-Nhuqzjtl Fxoz-7-Bxpmyzfx Yjre-0-Nvhtxajcgtj in Gamma Globulins Abnorm Protein Ban d 1 Vitamin B12 Folate Procalcitonin 0.16 Ur Random Creatini ne Ur Random Albumin U Random Total Pro tein Protein/Creatinin Ratio Protein/Creat Rati o 24h U Random a-1-Globu kenia % U Random a-2-Globu kenia % U Random Beta Glob ulin U Random Gamma Molly b U Abnormal Prot Ba nd 1 U Abnormal Prot Ba nd 2 U Abnormal Prot Ba nd 3 Urine PEP Interpre t Pro Electrophoresi s Int Complement C3c Complement C4c 03/10/20 03/10/20 03/10/20 23:41 20:39 16:03 WBC RBC Hgb Hct MCV MCH MCHC RDW Plt Count MPV Neut % (Auto) Lymph % (Auto) Yates % (Auto) Eos % (Auto) Baso % (Auto) Neut # (Auto) Lymph # (Auto) Yates # (Auto) Eos # (Auto) Baso # (Auto) Nucleated RBC % (a uto) Nucleated RBCs # Specimen Type Sample Site ABG pH ABG pCO2 ABG pO2 ABG HCO3 ABG Base Excess Avila Test Hematocrit O2 Delivery Device O2 Liters/Min Esol Teacher ID Sodium Potassium Chloride Carbon Dioxide Anion Gap BUN Creatinine GFR Calculation Glucose POC Glucose 106 181 H 184 H Calculated Osmolal ity Calcium Phosphorus Magnesium Iron Total Bilirubin AST ALT Alkaline Phosphata se Total Protein Albumin Globulin Rrsmp-1-Kyivizspc Qwzfc-5-Uxnllvcon Rmvw-8-Eragwifa Tglf-4-Ezrozcqm Zdxn-2-Kcpepafpxhb in Gamma Globulins Abnorm Protein Ban d 1 Vitamin B12 Folate Procalcitonin Ur Random Creatini ne Ur Random Albumin U Random Total Pro tein Protein/Creatinin Ratio Protein/Creat Rati o 24h U Random a-1-Globu kenia % U Random a-2-Globu kenia % U Random Beta Glob ulin U Random Gamma Molly b U Abnormal Prot Ba nd 1 U Abnormal Prot Ba nd 2 U Abnormal Prot Ba nd 3 Urine PEP Interpre t Pro Electrophoresi s Int Complement C3c Complement C4c 03/10/20 03/10/20 03/10/20 10:35 04:40 04:40 WBC RBC Hgb Hct MCV MCH MCHC RDW Plt Count MPV Neut % (Auto) Lymph % (Auto) Yates % (Auto) Eos % (Auto) Baso % (Auto) Neut # (Auto) Lymph # (Auto) Yates # (Auto) Eos # (Auto) Baso # (Auto) Nucleated RBC % (a uto) Nucleated RBCs # Specimen Type Sample Site ABG pH ABG pCO2 ABG pO2 ABG HCO3 ABG Base Excess Avila Test Hematocrit O2 Delivery Device O2 Liters/Min Esol Teacher ID Sodium Potassium Chloride Carbon Dioxide Anion Gap BUN Creatinine GFR Calculation Glucose POC Glucose 233 H Calculated Osmolal ity Calcium Phosphorus Magnesium Iron 75 Total Bilirubin AST ALT Alkaline Phosphata se Total Protein Albumin Globulin Ypnrr-8-Dpoykjlcg Mgrti-3-Uidvvkicm Vvvl-4-Fzodxfmq Yege-0-Mctkyavz Padl-2-Djiitprfvij in Gamma Globulins Abnorm Protein Ban d 1 Vitamin B12 1006 Folate 7.4 Procalcitonin Ur Random Creatini ne Ur Random Albumin U Random Total Pro tein Protein/Creatinin Ratio Protein/Creat Rati o 24h U Random a-1-Globu kenia % U Random a-2-Globu kenia % U Random Beta Glob ulin U Random Gamma Molly b U Abnormal Prot Ba nd 1 U Abnormal Prot Ba nd 2 U Abnormal Prot Ba nd 3 Urine PEP Interpre t Pro Electrophoresi s Int Complement C3c Complement C4c 03/08/20 03/08/20 03/08/20 21:40 21:40 16:51 WBC RBC Hgb Hct MCV MCH MCHC RDW Plt Count MPV Neut % (Auto) Lymph % (Auto) Yates % (Auto) Eos % (Auto) Baso % (Auto) Neut # (Auto) Lymph # (Auto) Yates # (Auto) Eos # (Auto) Baso # (Auto) Nucleated RBC % (a uto) Nucleated RBCs # Specimen Type Sample Site ABG pH ABG pCO2 ABG pO2 ABG HCO3 ABG Base Excess Avila Test Hematocrit O2 Delivery Device O2 Liters/Min Esol Teacher ID Sodium Potassium Chloride Carbon Dioxide Anion Gap BUN Creatinine GFR Calculation Glucose POC Glucose Calculated Osmolal ity Calcium Phosphorus Magnesium Iron Total Bilirubin AST ALT Alkaline Phosphata se Total Protein Albumin Globulin Jeqom-5-Fhmtguvcj Vlase-4-Imrllgkyo Mpql-6-Elxugazt Yzyz-8-Dsrpztlj Fgga-1-Verevzhhxxz in 2.48 Gamma Globulins Abnorm Protein Ban d 1 Vitamin B12 Folate Procalcitonin Ur Random Creatini ne 182 Ur Random Albumin 46 U Random Total Pro tein 109 H Protein/Creatinin Ratio 599 H Protein/Creat Rati o 24h 0.599 H U Random a-1-Globu kenia % 2 U Random a-2-Globu kenia % 26 U Random Beta Glob ulin 16 U Random Gamma Molly b 10 U Abnormal Prot Ba nd 1 Not Reportable U Abnormal Prot Ba nd 2 Not Reportable U Abnormal Prot Ba nd 3 Not Reportable Urine PEP Interpre t See note Pro Electrophoresi s Int Complement C3c 166 Complement C4c 17 03/08/20 05:19 WBC RBC Hgb Hct MCV MCH MCHC RDW Plt Count MPV Neut % (Auto) Lymph % (Auto) Yates % (Auto) Eos % (Auto) Baso % (Auto) Neut # (Auto) Lymph # (Auto) Yates # (Auto) Eos # (Auto) Baso # (Auto) Nucleated RBC % (a uto) Nucleated RBCs # Specimen Type Sample Site ABG pH ABG pCO2 ABG pO2 ABG HCO3 ABG Base Excess Avila Test Hematocrit O2 Delivery Device O2 Liters/Min Esol Teacher ID Sodium Potassium Chloride Carbon Dioxide Anion Gap BUN Creatinine GFR Calculation Glucose POC Glucose Calculated Osmolal ity Calcium Phosphorus Magnesium Iron Total Bilirubin AST ALT Alkaline Phosphata se Total Protein Albumin 2.7 L Globulin Egyng-1-Wavfbssod 0.8 H Nqxlh-7-Wcwaudmtb 1.4 H Qmvi-4-Ssttzwav 0.4 Bgrv-8-Arzzsdil 0.4 Rkjc-7-Ebawbxeawdx in Gamma Globulins 0.5 L Abnorm Protein Ban d 1 Not Reportable Vitamin B12 Folate Procalcitonin Ur Random Creatini ne Ur Random Albumin U Random Total Pro tein Protein/Creatinin Ratio Protein/Creat Rati o 24h U Random a-1-Globu kenia % U Random a-2-Globu kenia % U Random Beta Glob ulin U Random Gamma Molly b U Abnormal Prot Ba nd 1 U Abnormal Prot Ba nd 2 Not Reportable U Abnormal Prot Ba nd 3 Not Reportable Urine PEP Interpre t Pro Electrophoresi s Int See note Complement C3c Complement C4c Vitals: Last Vital Signs Temp 98.0 F 03/11/20 07:20 Pulse 85 03/11/20 07:27 Resp 18 03/11/20 07:27 BP 171/89 03/11/20 07:20 Pulse Ox 93 03/11/20 07:27 Discharge Plan Discharge Patient Disposition: Home Condition: Stable Prescriptions: New bicalutamide 50 mg Tablet 50 mg PO Q24H 12 Days Qty: 12 RF: 0 ipratropium-albuterol 0.5 mg-3 mg(2.5 mg base)/3 mL Solution For Nebulization 3 ml inhalation QID.RESPIRATORY PRN (Reason: shortness of breath or wheezing) Qty: 15 RF: 0 amlodipine 10 mg Tablet 10 mg PO DAILY 30 Days Qty: 30 RF: 0 lisinopril 20 mg Tablet 20 mg PO DAILY 30 Days Qty: 30 RF: 0 lorazepam 0.5 mg Tablet See Rx Instructions .ROUTE .COMPLEX PRN (Reason: Anxiety) Qty: 42 RF: 0 oxycodone-acetaminophen 5-325 mg Tablet 0.5 tab PO Q8H PRN (Reason: Moderate Pain) 7 Days Qty: 10.5 RF: 0 tamsulosin 0.4 mg Capsule 0.4 mg PO DAILY 30 Days Qty: 30 RF: 0 pantoprazole 40 mg Tablet,Delayed Release (Dr/Ec) 40 mg PO BID 30 Days Qty: 60 RF: 0 levofloxacin 750 mg tablet 750 mg PO DAILY 5 Days Qty: 5 RF: 0 prednisone 20 mg tablet 20 mg PO BID 5 Days Qty: 10 RF: 0 Spiriva with HandiHaler 18 mcg capsule, w/inhalation device 1 cap inhalation DAILY Qty: 60 RF: 0 metformin 1,000 mg tablet 1,000 mg PO DAILY 30 Days Qty: 30 RF: 0 (DME) glucometer See Rx Instructions .Route .MEDSUPPLY Qty: 1 RF: 0 albuterol sulfate 90 mcg/actuation HFA aerosol inhaler 1 inh inhalation Q6H PRN (Reason: shortness of breath or wheezing) Qty: 18 RF: 0 Continued sertraline [Zoloft] 100 mg tablet 75 mg PO DAILY RF: 0 buspirone 7.5 mg tablet 7.5 mg PO BID PRN (Reason: Anxiety) RF: 0 aspirin 81 mg Tablet,Chewable 81 mg PO DAILY RF: 0 acetaminophen [Tylenol] 325 mg Capsule 500 mg PO Q4H PRN (Reason: Pain) RF: 0 Advair Diskus 500-50 mcg/dose blister with device 1 inh inhalation BID Qty: 60 RF: 2 Discontinued duloxetine [Cymbalta] 30 mg capsule,delayed release(DR/EC) 30 mg PO DAILY@12 RF: 0 ipratropium bromide 18 mcg/actuation aerosol 1 puff inhalation BID RF: 0 Discharge Orders: Discharge Order (Routine); Ordered 03/11/20 Ordered By: Gume Velazquez Other Ambulatory Orders: Complete Blood Count w/Auto (Routine) Timeframe: 20200314 Location: Determined by Patient Ordered By: Gume Velazquez Type and Screen (Routine) Timeframe: 20200314 Facility: [facility] - Location: Lab - Main Lab Ordered By: Gume Velazquez DME: Hospital Bed (Order) Location: None Selected Ordered By: Gume Velazquez DME: Nebulizer with Neb Kit (Order) Location: None Selected Ordered By: Gume Velazquez DME: Walker (Order) Location: None Selected Ordered By: Gume Velazquez Referrals: Samuel Cosby MD [Physician] - 4-7 days (Prostate ultrasound and biopsy. ) Trung Lopez MD [Hospitalist] - 03/17/20 10:00 am Rylie Hunt MD [Physician] - 4-7 days Patient Instructions: COPD, Lisinopril (By mouth), Oxycodone/Acetaminophen (By mouth), Lorazepam (By mouth), Albuterol (By breathing), Prednisone (By mouth), Amlodipine (By mouth), Metformin (By mouth), Levofloxacin (By mouth), Tamsulosin (By mouth), Bicalutamide (By mouth), Pantoprazole (By mouth), Tiotropium (By breathing), Prostate Cancer (GEN), How to Check Your Blood Sugar (DC), Diabetic Foot Care (GEN), Diabetes Mellitus Type 2 in Adults (GEN), Chronic Hypertension (DC), Anxiety (GEN), COPD Stoplight, Using Oxygen at Home Activity Restrictions/Additional Instructions: UROLOGY instructions: 1. Your prostate biopsy and ultrasound will be scheduled for next week. 2. You have been provided prescriptions for an antibiotic to begin the day before the biopsy (levofloxacin), a pain pill and a Valium to take 1 hour before the biopsy. 3. It is critical that you hold the aspirin until after the procedure. 4. Please call [phone] if you have any questions regarding the procedure, expectations, etc. 5. The prostate biopsy is being done based on the findings of a very elevated PSA, lymph node enlargement and suspicious areas in the bones worrisome for metastatic prostate cancer. It will help in deciding treatment. -I have prescribed Ativan to be used as needed for anxiety -I have prescribed oxycodone to be used as needed for diffuse metastatic pain from prostate cancer -These medications can cause significant respiratory depression, high risk of given your COPD, please use them sparingly, if you feel short of breath, lightheaded, or dizzy please call [phone] -Levaquin provided for pneumonia -Prednisone prescribed for COPD exacerbation -I have prescribed Advair, Spiriva, for COPD -Nebulizers for shortness of breath -Follow-up with pulmonary -Please follow-up with Dr. Lopez on Saturday -For your anemia, thrombocytopenia follow with Dr. Loepz on Saturday for repeat blood work -Follow-up with Dr. Cosby for prostate biopsy -Please hydrate well, drink plenty of electrolyte balance fluids -For type 2 diabetes mellitus, your hemoglobin A1c was 6.4, check blood sugars 3 times daily, before meals, record blood sugars, bring to primary care physician's office, I have discharged on Metformin 1000 mg daily Discharge Attestations Time Spent in Discharge Care*: greater than 30 min Quality Metrics Clinical Quality Measures During this hospital stay, did patient experience: None Coding Level of Care Code Acute Membership Counselor for Dea Sparks Diagnoses Acute hypercapnic respiratory failure J96.02 Prostate cancer C61 COPD (chronic obstructive pulmonary disease) J44.9 Generalized weakness R53.1 Anxiety F41.9 Abnormal laboratory test R89.9 Thrombocytopenia D69.6 Type 2 diabetes mellitus E11.9 Anemia D64.9
[2020-03-11 10:53] LABS: Glucose Point of Care 184 mg/dL (70-110)
[2020-03-11 13:29] LABS: COMPLEMENT, TOTAL (CH50) >60 U/mL (31-60)
--- NOTE | 2020-03-11 14:19 | P.CONIM_ITS ---
Providers/Reason for Consult Consulting Physican/Specialty*: Elbert Ibarra MD. Psychiatry. Reason for Consult*: Evaluate for need for medication changes, referral to outpatient services or identify need for inpatient services. Attending Physician: Gume Velazquez MD Primary Care Provider: Sridevi Summers MD Psych Consult HPI History of Present Illness Bartolo Lopez is a 69 year old male who presented to the emergency department with the following report: Chief complaint: Weakness Stated complaint: sob/back pain Time Seen by Provider: 03/08/20 15:46 History of Present Illness: HPI Narrative: 69-year-old male who comes in complaining of weight loss and weakness over the last 8 weeks he injured his back. His alk phos is significantly elevated at evidently 800 and they were called about that today he gets severely anxious he is hyperventilating when I seen him. He has difficult time isolating any particular pain other than just generalized in his back. No specific trauma. Patient has developed some incontinence and has been wearing depends lately. Complaint: generalized weakness Onset (ago): week(s) (8) Duration: intermittent and progressively worsening Location: generalized Migration: none Severity: moderate Relieving factors: none Exacerbating factors: none Associated symptoms: Denies chest pain, chills, confusion, melena, decreased appetite, diaphoresis, dysuria, easy bruising, fever(s), headache(s), myalgias, nausea, rash, short of breath, syncope or vomiting. He was admitted to the [facility] department for work-up of his presentation and definitive treatment of those issues. Initial findings suggested possible prostate malignancy which was confirmed with metastases. He had been struggling with anxiety as identified above and a psychiatric consult was requested. 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 He identifies without reservation that he just received a terminal cancer diagnosis. He endorses knowing he is going to need some therapy from an experienced provider and so a list of local private providers with experience was requested from the treatment team. He reports that he has no prior history of psychiatric care. No inpatient services, no therapy other than those received and training that was often recommended by training programs, and no psychotropic medications until very recently. He reports that in his life he has had maybe 6 panic attacks and has a naturally anxious person he used his understanding of the mind to work through things. However over the last 8 weeks things really went on hyper drive. His COPD and breathing difficulties intersecting with this new anxiety component in his life and his lower back pain converge to make for a very traumatic and challenging situation. His does not really and was supportive of his history. He reports that his outpatient PCP manages his psychotropic medication and right now they are cross tapering Cymbalta and Zoloft with the plan of him being on Cymbalta as the antidepressant/antianxiety medication. Additionally he is taking some Ativan with full respective need to avoid decreasing his respiratory drive given his COPD. 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 His is obviously struggling with this information as well. They have 3 children between the 2 of them and they have been informed and are hoping to visit with Bartolo with full respect of the current pandemic. We discussed the risk benefits and alternatives of making any changes in his medications and he understood and we agreed that at this time we would leave all medications as they are currently constituted. He denies any history of suicide attempts. Psychiatric history: As above. Substance abuse history: He reports being a longtime smoker and he did not quit that behavior until about 7 years ago. Otherwise he denies significant alcohol marijuana or any illicit drug use. He denies drug rehab or DUIs. Family history: His father also had pancreatic cancer but he denies any mental health, addiction or suicide attempts or completions that run in the family. Developmental history: There were no problems with the , or delivery, learned to walk and talk and met developmental milestones on time, and denies need for speech therapy, learning support, emotional support or special education classes. Psychosocial history: He has been with his current partner for about 14 years and between the 2 of them they have 3 children. He does endorse having previous relationships. He endorses practicing psychiatry for about 40 to 41 years. He denies any issues with his family of origin. He completed high school college and his medical degree and became a practicing psychiatrist. He currently lives in a house with his . Legal history: Denied. Medical history: Presents with initial diagnosis of metastatic prostate cancer, COPD. Please see primary team note for complete medical history. Meds Current Medications: Current Medications Generic Name Dose Route Start Last Admin Trade Name Freq PRN Reason Stop Dose Admin Albuterol/Ipratrop ium 3 ml 03/08/20 20:41 03/11/20 11:18 Ipratropium-Albu terol 3 Ml Neb INHALATION 3 ml QID.RESPIRATORY S CH Administration Amlodipine Besylat e 10 mg 03/09/20 11:30 03/11/20 09:16 Amlodipine 10 Mg Tablet PO 10 mg DAILY DEVYN Administration Bicalutamide 50 mg 03/09/20 12:15 03/11/20 12:44 Bicalutamide 50 Mg Tablet PO 50 mg Q24H DEVYN Administration Enoxaparin Sodium 40 mg 03/09/20 18:00 03/09/20 17:35 Enoxaparin 40 Mg /0.4 Ml Syringe SUBCUT 40 mg Q24H DEVYN Administration Insulin Aspart 0 unit 03/09/20 12:00 03/11/20 12:44 Insulin Aspart 1 00 Unit/1 Ml SUBCUT 4 unit TIDWM DEVYN Administration Protocol Lisinopril 20 mg 03/11/20 09:00 03/11/20 09:16 Lisinopril 20 Mg Tablet PO 20 mg DAILY DEVYN Administration Lorazepam 0.5 mg 03/10/20 09:19 03/11/20 06:29 Lorazepam 0.5 Mg Tablet PO 0.5 mg Q12H PRN Administration ANXIETY Methylprednisolone Sodium Succinate 40 mg 03/09/20 08:00 03/11/20 09:07 Methylprednisolo ne Sod Succ 40 Mg/ Ml Inj IVP 40 mg Q24H DEVYN Administration Oxycodone/Acetamin ophen 0.5 tab 03/09/20 09:27 03/10/20 10:03 Oxycodone-Apap 5 -325 Mg Tablet PO 0.5 tab Q8H PRN Administration MODERATE PAIN Pantoprazole Sodiu m 40 mg 03/10/20 12:30 03/11/20 09:[address] 40 Mg Tablet PO 40 mg BID DEVYN Administration Fluticasone/Salmet adam 1 puff 03/09/20 09:00 03/11/20 08:55 Fluticasone-Salm eterol 500-50 Disk us INHALATION 1 puff BID DEVYN Administration Sertraline HCl 75 mg 03/09/20 09:00 03/11/20 09:16 Sertraline 50 Mg Tablet PO 75 mg DAILY DEVYN Administration Sodium Polystyrene Sulfonate 15 gm 03/09/20 09:30 03/11/20 09:17 Sodium Polystyre ne Sulfonate 15 Gm /60 Ml Btl PO Not Given Q6H DEVYN Sucralfate 1 gm 03/10/20 13:00 03/11/20 04:11 Sucralfate 1 Gm Tablet PO Not Given Q12H DEVYN Tamsulosin HCl 0.4 mg 03/09/20 09:00 03/11/20 09:16 Tamsulosin 0.4 M g Capsule PO 0.4 mg DAILY DEVYN Administration PFSH NPU PFSH: Medical History Anxiety COPD (chronic obstructive pulmonary disease) Surgical History H/O eye surgery Family History Mother Asthma Father Prostate cancer Social History Smoking and tobacco status: former smoker Alcohol intake: current Mental Status Exam MSE Comments: This is an underweight white male with a nasal cannula in and some signs of respiratory difficulties with adequate grooming and appropriate eye contact. No abnormal movements except for mild psychomotor retardation. Cooperative with exam in no acute distress. Speech was normal rate and volume with some pauses for breathing concerns. Mood described as as good as can be expected, affect bright. Thought process organized. Thought content: Patient denied any suicidal or homicidal ideations, there were no delusions reported or noted, he denied any auditory or visual hallucinations. Attention and concentration were intact and memory appeared reliable but none were formally tested. He is alert and oriented x3. Insight and judgment are good. 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: Status: Acute (3) Prostate cancer metastatic to bone: Status: Acute (4) Type 2 diabetes mellitus: Status: Acute (5) Thrombocytopenia: Status: Acute (6) Prostate cancer: Status: Acute (7) Acute hypercapnic respiratory failure: Status: Resolved (8) Anxiety: Status: Acute (9) COPD (chronic obstructive pulmonary disease): Status: Acute (10) Elevated liver enzymes: Status: Acute (11) Low oxygen saturation: Status: Acute (12) Abnormal laboratory test: Status: Resolved (13) Generalized weakness: Status: Acute (14) Adjustment disorder: Status: Acute Additional A&P Information This is a 29-year-old white male with recent onset of overwhelming anxiety and back pain against the backdrop of his COPD who has been diagnosed with metastatic prostate cancer and presents looking for assistance with aftercare. 1. Continue current medication. We will defer any medication changes to his outpatient team. 2. Recommend outpatient individual therapy and gave him a list of multiple providers in the local community. 3. No need for intensive inpatient services as patient has a reasonable acceptance of his challenges, is now adjusting to the news of his diagnosis and is open to outpatient follow-up. 4. Appreciate the consult. Attestations NPU Medical Necessity Statement*: N/A. Please see primary team note, but no need for inpatient psychiatric services. 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
[2020-03-11] MEDS: sucralfate 1 gm Tablet PO (14:41)
[2020-03-11] MEDS: acetaminophen 325 mg Tablet 650 MG PO (14:41)
--- NOTE | 2020-03-11 14:55 | PC.NURSE ---
Discharge instructions given to patient and , voiced full understanding. IV DC'd cath intact bleeding controlled with 2x2 and coban. Patient to main entrance via wheelchair to private vehicle with zero difficulties
[2020-03-14 00:52] LABS: DNA AB (DS) CRITHIDIA,IFA NEGATIVE (NEGATIVE)
[2020-03-14 12:34] LABS: CENTROMERE B ANTIBODY <1.0 NEG AI (<1.0 NEG); JO-1 ANTIBODY <1.0 NEG AI (<1.0 NEG); RNP ANTIBODY <1.0 NEG AI (<1.0 NEG); SCL-70 ANTIBODY <1.0 NEG AI (<1.0 NEG); SJOGREN'S ANTIBODY (SS-A) <1.0 NEG AI (<1.0 NEG); SM ANTIBODY <1.0 NEG AI (<1.0 NEG); SS-B <1.0 NEG AI (<1.0 NEG)
[2020-03-14 14:04] LABS: THYROID PEROXIDASE ANTIBODIES 1 IU/mL (<9)
[2020-03-14 14:33] LABS: ANA SCREEN, IFA NEGATIVE (NEGATIVE)
== END 2020-03-11 14:55 | disposition home or self-care (01) | DRG 189 ==
LOC: ER 17:02 → MEDSURG 03-09 06:15
PROVIDERS: Admitting Provider Family Medicine; Emergency Provider Family Medicine; PCP Family Medicine; Visit Provider Family Medicine
DX: J96.02 Acute respiratory failure with hypercapnia (principal); C79.51 Secondary malignant neoplasm of bone; C77.8 Secondary and unspecified malignant neoplasm of lymph nodes of multiple regions; E87.1 Hypo-osmolality and hyponatremia; C61 Malignant neoplasm of prostate; E87.5 Hyperkalemia; D69.6 Thrombocytopenia, unspecified; F41.9 Anxiety disorder, unspecified; J44.9 Chronic obstructive pulmonary disease, unspecified; Z87.891 Personal history of nicotine dependence; N18.9 Chronic kidney disease, unspecified; E11.22 Type 2 diabetes mellitus with diabetic chronic kidney disease; F41.0 Panic disorder [episodic paroxysmal anxiety]; G89.3 Neoplasm related pain (acute) (chronic); D63.8 Anemia in other chronic diseases classified elsewhere; Z80.42 Family history of malignant neoplasm of prostate; Z79.82 Long term (current) use of aspirin; Z79.51 Long term (current) use of inhaled steroids
CPT/HCPCS: 12345; 36415; 36416; 36600; 71045; 71275; 72131; 74177; 80051; 80053; 80061; 80074; 80500; 81001; 82232; 82330; 82550; 82607; 82728; 82746; 82803; 82805; 82962; 83036; 83540; 83605; 83615; 83690; 83735; 83880; 84100; 84145; 84153; 84155; 84165; 84443; 84484; 85007; 85025; 85378; 86850; 86900; 87086; 87426; 87806; 88184; 88185; 93005; 93306; 94640; 94660; 96372; 96375; 97161; 97165; 99282; G0378; J1650; J1815; J2060; J2270; J2920; J2930; J3535; J7030; J8999; Q9967

== ENCOUNTER → 2020-03-16 16:06 | Outpatient (BNVA) | payer MEDICARE, SELFPAY | PROVIDERS: PCP Family Medicine; Visit Provider Urology | DX: C61 Malignant neoplasm of prostate (principal); C79.51 Secondary malignant neoplasm of bone | CPT/HCPCS: 88305 ==

== ENCOUNTER 2020-03-17 09:43 | Outpatient (CLI) | payer MEDICARE, SELFPAY ==
[2020-03-14 16:34] LABS: Hematocrit 33.3 % (42.0-52.0); Mean Corpuscular Hemoglobin 28.5 pg (28.0-34.0); Mean Corpuscular Volume 94.9 fL (80-94); Mean Platelet Volume 10.9 fL (7.4-10.4); Platelet Count 90 10^3/cmm (130-400); Red Blood Count 3.51 10^6/uL (4.1-5.3); Red Cell Distribution Width 17.4 % (12.1-15.1); White Blood Count 6.2 10^3/uL (4.0-10.0)
[2020-03-14 16:57] LABS: Alanine Aminotransferase 16 U/L (0-41); Albumin Level 3.6 g/dL (3.5-5.2); Alkaline Phosphatase 496 IU/L (40-130); Anion Gap 11.4 (5-19); Aspartate Amino Transferase 14 U/L (0-40); Blood Urea Nitrogen 17 mg/dL (8-23); Calcium 9.1 mg/dL (8.5-10.5); Carbon Dioxide 32 mmol/L (22-29); Chloride 96 mmol/L (98-107); Globulin 2.8 g/dL (1.3-4.6); Glucose 122 mg/dL (65-115); Osmolality Calculated 283 mOsm/kg (285-295); Potassium 4.4 mmol/L (3.5-5.1); Sodium 135 mmol/L (136-145); Total Bilirubin 0.3 mg/dL (0.15-1.2); Total Protein 6.4 g/dL (6.6-8.7)
[2020-03-14 17:17] LABS: Slide Review Slide Review Perform
[2020-03-14 17:22] LABS: Absolute Eosinophils 0.1 10^3/cmm (0.0-0.7); Absolute Segmented Neutrophil 3.3 10/cmm (1.6-7.1); Band Neutrophils Absolute 0.5 10^3/cmm (0.0-1.2); Corrected White Blood Count 5.5 10^3/cmm (4.8-10.8); Eosinophils 3 %; Lymphocytes 22 %; Monocytes Absolute 0.2 10^3/cmm (0.1-0.6); Poikilocytosis Trace; Polychromasia Trace; Segmented Neutrophils 53 %; Total Cells Counted 100 (0-100)
[2020-03-14 17:23] LABS: Absolute Neutrophil 3.8 10^3/cmm (1.4-6.5); Anisocytosis 1+; Macrocytosis Trace; Platelet Estimate Decreased (Normal); Smudge Cells 1+
[2020-03-17] MEDS: lidocaine 1% INJ 20 mL INJECTION (12:00)
[2020-03-17] MEDS: goserelin acetate 10.8 mg Implant IM (12:10)
--- NOTE | 2020-03-17 17:22 | ONC CON_ITS ---
Dr. Lopez New Patient Note Patient: Bartolo Lopez Unit #: [id number]: 1950 Dicatated By: Trung Lopez M.D.Date of Visit: Mar 17, 2020 Onc MED New Patient/Consult Referring Physician: Chief Complaint: Prostate cancer. 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 He has known COPD and he also has had some chronic anxiety. He has previously been in good general health. On 03/08/2020 he was admitted to the hospital with complaints of weakness, back pain, and shortness of breath. The back pain had started in the early part of January. He thought it was just of back sprain, but it had continued to gradually worsen. His evaluation in the emergency room included lumbar spine CT which showed a diffuse mottled sclerotic appearance throughout the skeleton, suspicious for metastatic prostate cancer. Also noted was retroperitoneal and right iliac chain lymphadenopathy. His CT scans of the chest, abdomen, and pelvis also showed diffuse sclerotic changes throughout the skeletal structures. There were changes of severe centrilobular emphysema. There were multiple bilateral pulmonary nodules measuring up to 5 mm, metastatic disease not excluded. Also noted was retrocrural, posterior mediastinal, retroperitoneal, and right external iliac chain lymphadenopathy. The prostate was enlarged measuring 5.1 x 6.0 x 6.5 cm. He was noted to be mildly anemic with hemoglobin 11.0 g. White blood cell count was normal at 5400 but platelet count also was mildly decreased at 83,000. His differential showed 11 nucleated red cells per 100 WBCs. Renal function was normal with BUN 16 and creatinine 0.7 mg/dL. Calcium was normal at 9.5 mg/dL. Alkaline phosphatase was significantly elevated at 877/130 IUs/L. B12 and folate levels were normal. His PSA level was markedly elevated at 1344 ng/mL. During the hospitalization, he developed hypercapnic acute respiratory failure. This was thought to be due to a panic attack. He started treatment with bicalutamide 50 mg daily. He was given burst steroid therapy and empiric antibiotic coverage with Levaquin for his COPD. At discharge he also was started on Metformin for steroid related hyperglycemia, and he also started amlodipine and lisinopril for hypertension. He had an outpatient follow-up with Dr. Cosby on 03/16/2020, and at that time he underwent ultrasound-guided biopsy of the prostate. He is seen now for further management. He has been feeling better since discharge from the hospital. He is still generally weak, but he is able to ambulate with a walker. His ECOG score is 2. His appetite is improving. His weight is down 30 pounds from normal. He does not have fever, night sweats, or hot flashes. He does have shortness of breath, but his breathing has been pretty good on oxygen. He does not complain of cough and he has not been having chest pain. He has no GI complaints. Bladder function has been okay. He did have an episode of urinary retention about 6 months ago. At that point he had been started on tamsulosin, and had no further problems with urination. He currently has no significant joint or bone pain. He does not complain of headache or dizziness. He has no numbness/paresthesia or other focal neurologic symptoms. He is having significant anxiety and depression. Past Medical History: His medical history includes anxiety and chronic obstructive pulmonary disease. Past Surgical History: He underwent ultrasound-guided needle biopsy of the prostate on 03/16/2020. 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 Medications: Bicalutamide 1 (50 mg) Tablet Oral daily, Flomax 1 (0.4 mg) Capsule Oral daily, Fluticasone-Salmeterol 1 Puff(s) (of 100-50 mcg/dose) Aerosol Powder, Breath Activated Inhalation b.i.d., levoFLOXacin 1 (750 mg) Tablet Oral daily for 5 days, LORazepam 1 (0.5 mg) Tablet Oral q 4 hours PRN, Naloxone HCl Liquid Nasal PRN, oxyCODONE-Acetaminophen 1 (5-325 mg/5mL) Solution Oral q 6 hours PRN, predniSONE 1 (20 mg) Tablet Oral b.i.d., Sertraline HCl 1 (75 mg) Tablet Oral daily, Spiriva Respimat 1 (2.5 mcg/act) Aerosol, solution Inhalation daily Allergies: No Known Allergies. Social History: Mr. Lopez is . 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 He has a history of smoking 1 pack of cigarettes daily for 25 to 30 years. He quit smoking in 2013. He has just occasional alcohol use. Family History: Father at age 83 with either prostate cancer or bladder cancer. He is not certain. Mother with asthma at age 65. He had no siblings. Review Of Symptoms: Constitutional - He is here as a new patient following hospitalization due to exacerbation of COPD. He is generally feeling better but he is still pretty weak. His energy is improving. He is able to get up and walk short distances with a walker. Prior to hospitalization he was very active. His appetite is also improving. He reports a recent 30 pounds weight loss. No fever, night sweats, or hot flashes. ECOG score is 2, Eyes - No change in vision, ENMT - No hearing loss or tinnitus. No sinus congestion/drainage. No mouth sores. No sore throat or difficulty swallowing, Hematologic/Lymphatic - No abnormal bruising or bleeding, Respiratory - He still has some shortness of breath, but it has improved with use of new medications and oxygen. No cough. No pleuritic pain or hemoptysis, Cardiovascular - No angina pain. No palpitations, Gastrointestinal - No nausea or vomiting. No heartburn or acid reflux. No diarrhea or constipation. No blood in the stool or black stools, Genitourinary (M) - He had an episode of urinary retention about 6 months ago. He started treatment with Flomax. He had no further problems with urination, Musculoskeletal - He currently is not having any joint or bone pain, Integumentary - No skin rash or other skin changes, Neurologic - No headache or dizziness. No numbness or tingling. No other focal neurologic symptoms, Psychiatric - He has anxiety and depression. This is new. No insomnia. Vital Signs: Performed on Mar 17, 2020 10:58: 0, 21.25, 2.05 sq.m, 75 in, 99 %, 106 /min (HIGH), 21 /min, 110/74 mm(hg), 98.2 F (LOW), and 170 lbs (HIGH). Physical Examination: Constitutional - He appears somewhat weak generally, Eyes - Sclerae nonicteric. Conjunctivae clear, ENMT - No lesions noted in the oral cavity, Neck - No mass or thyromegaly, Hematologic/Lymphatic - No cervical, clavicular, or axillary adenopathy, Respiratory - Lungs are clear with diminished air movement bilaterally, Cardiovascular - Heart rhythm is regular. There is no murmur, gallop, or rub noted, Abdomen - Soft and non-tender. Liver and spleen are not enlarged. There is no abdominal mass or ascites noted and there is no inguinal adenopathy, Back/Spine - No spine or CVA tenderness noted, Extremities - No edema. Dorsalis pedis pulses are palpable bilaterally, Integumentary - No rashes. No suspicious skin lesions noted, Neurologic - No focal neurologic deficits noted. Problem List: 1. Metastatic prostate cancer with CT evidence of widespread sclerotic bony metastatic disease and mediastinal, retrocrural, retroperitoneal, and right external iliac lymphadenopathy in association with markedly elevated PSA level. 2. COPD. 3. Anxiety/depression. Problems Addressed with this Encounter and Plan: 1. Metastatic prostate cancer with CT evidence of widespread sclerotic bony metastatic disease and mediastinal, retrocrural, retroperitoneal, and right external iliac lymphadenopathy in association with markedly elevated PSA level. In addition, his CBC and blood smear findings are consistent with bone marrow involvement. He had ultrasound-guided biopsy of the prostate yesterday, and that result is pending. During this time he has started bicalutamide 50 mg daily. He does appear to be showing symptomatic improvement. He will now begin androgen deprivation therapy with Zoladex 10.8 mg. For now he will continue the bicalutamide, but I will begin the process of transitioning his antiandrogen therapy to enzalutamide. He is aware that his disease is metastatic and incurable. However, the probability is very high that he will improve with treatment with the average duration of response in the range of 2 years. I will plan a follow-up visit in 1 month. He will have laboratory studies with that visit to include CBC, comprehensive metabolic profile, PSA level and testosterone level. I also will request genetic screening for BRCA. 2. He has extensive bony metastatic disease, and I will plan to begin monthly denosumab injections with his next visit. 3. He recently started amlodipine and lisinopril for hypertension. His blood pressures at home, though, have been low, and he is advised to stop both medications. 4. He also was started on Metformin for steroid related hyperglycemia. His blood sugars have not been significantly elevated and he has now completed his course of steroid therapy. As such, he is advised to also stop the Metformin. 5. He has generalized weakness and deconditioning in association with the prostate cancer, and I will put in a request for physical therapy evaluation/treatment. Signed By: Trung Lopez M.D. <<Signature on File>>
== END 2020-03-17 09:44 | disposition home or self-care (01) ==
LOC: ONCMED 09:44
PROVIDERS: PCP Family Medicine; Visit Provider Internal Medicine Medical Oncology
DX: C61 Malignant neoplasm of prostate (principal); C79.51 Secondary malignant neoplasm of bone; R59.0 Localized enlarged lymph nodes; I10 Essential (primary) hypertension; R03.1 Nonspecific low blood-pressure reading; R73.9 Hyperglycemia, unspecified; T38.0X5A Adverse effect of glucocorticoids and synthetic analogues, initial encounter; J44.9 Chronic obstructive pulmonary disease, unspecified; F41.8 Other specified anxiety disorders; Z79.818 Long term (current) use of other agents affecting estrogen receptors and estrogen levels; Z79.899 Other long term (current) drug therapy
CPT/HCPCS: 80053; 85007; 85025; 96372; 96402; 99205; J9202

== ENCOUNTER → 2020-04-06 10:45 | Outpatient (BNVA) | payer MEDICARE, SELFPAY | PROVIDERS: PCP Family Medicine; Visit Provider Urology | DX: R33.9 Retention of urine, unspecified (principal); C61 Malignant neoplasm of prostate; C79.51 Secondary malignant neoplasm of bone; C77.9 Secondary and unspecified malignant neoplasm of lymph node, unspecified | CPT/HCPCS: 81003 ==

== ENCOUNTER 2020-04-12 07:31 | Outpatient (CLI) | payer MEDICARE, SELFPAY ==
[2020-04-12 08:34] LABS: Basophils # 0.1 10^3/uL (0.0-0.1); Basophils % 1.6 %; Eosinophils # 0.1 10^3/uL (0.0-0.8); Eosinophils % 4.1 %; Hematocrit 31.1 % (42.0-52.0); Hemoglobin 9.1 g/dL (11.7-16.6); Lymphocytes # 1.3 10^3/uL (0.8-4.8); Lymphocytes % 40.1 %; Mean Corpuscular HGB Conc 29.3 g/dL (30.0-36.0); Mean Corpuscular Hemoglobin 28.8 pg (28.0-34.0); Mean Corpuscular Volume 98.4 fL (80-94); Mean Platelet Volume 9.5 fL (7.4-10.4); Monocytes # 0.5 10^3/uL (0.2-0.9); Monocytes % 16.4 %; Neutrophils # 1.02 10^3/uL (1.8-7.7); Neutrophils % 32.1 %; Nucleated Red Blood Cells # 0.7 /100WBC; Nucleated Red Blood Cells % 20.5 %; Platelet Count 166 10^3/cmm (130-400); Red Blood Count 3.16 10^6/uL (4.1-5.3); Red Cell Distribution Width 21.7 % (12.1-15.1); White Blood Count 3.2 10^3/uL (4.0-10.0)
[2020-04-12 09:16] LABS: Alanine Aminotransferase 18 U/L (0-41); Anion Gap 12.3 (5-19); Aspartate Amino Transferase 22 U/L (0-40); Blood Urea Nitrogen 10 mg/dL (8-23); Calcium 8.8 mg/dL (8.5-10.5); Carbon Dioxide 28 mmol/L (22-29); Chloride 99 mmol/L (98-107); Globulin 2.6 g/dL (1.3-4.6); Glucose 108 mg/dL (65-115); Osmolality Calculated 280 mOsm/kg (285-295); Potassium 4.3 mmol/L (3.5-5.1); Sodium 135 mmol/L (136-145); Total Bilirubin 0.3 mg/dL (0.15-1.2); Total Protein 6.6 g/dL (6.6-8.7)
[2020-04-12 09:28] LABS: Alkaline Phosphatase 1312 IU/L (40-130)
[2020-04-12 10:03] LABS: Slide Review Slide Review Perform
[2020-04-12 15:05] LABS: Testosterone Total 2.5 ng/dL (193-740)
--- NOTE | 2020-04-18 09:48 | ONC FU_ITS ---
[facility] Patient Note Patient: Bartolo Lopez Unit #: [id number]: 1950 Dictated By: Farrukh PaniaguaDate of Visit: Apr 12, 2020 Onc MED Follow-Up/Prog Note Chief Complaint: Prostate cancer. 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 He has known COPD and he also has had some chronic anxiety. He has previously been in good general health. On 03/08/2020 he was admitted to the hospital with complaints of weakness, back pain, and shortness of breath. The back pain had started in the early part of January. He thought it was just of back sprain, but it had continued to gradually worsen. His evaluation in the emergency room included lumbar spine CT which showed a diffuse mottled sclerotic appearance throughout the skeleton, suspicious for metastatic prostate cancer. Also noted was retroperitoneal and right iliac chain lymphadenopathy. His CT scans of the chest, abdomen, and pelvis also showed diffuse sclerotic changes throughout the skeletal structures. There were changes of severe centrilobular emphysema. There were multiple bilateral pulmonary nodules measuring up to 5 mm, metastatic disease not excluded. Also noted was retrocrural, posterior mediastinal, retroperitoneal, and right external iliac chain lymphadenopathy. The prostate was enlarged measuring 5.1 x 6.0 x 6.5 cm. He was noted to be mildly anemic with hemoglobin 11.0 g. White blood cell count was normal at 5400 but platelet count also was mildly decreased at 83,000. His differential showed 11 nucleated red cells per 100 WBCs. Renal function was normal with BUN 16 and creatinine 0.7 mg/dL. Calcium was normal at 9.5 mg/dL. Alkaline phosphatase was significantly elevated at 877/130 IUs/L. B12 and folate levels were normal. His PSA level was markedly elevated at 1344 ng/mL. During the hospitalization, he developed hypercapnic acute respiratory failure. This was thought to be due to a panic attack. He started treatment with bicalutamide 50 mg daily. He was given burst steroid therapy and empiric antibiotic coverage with Levaquin for his COPD. At discharge he also was started on Metformin for steroid related hyperglycemia, and he also started amlodipine and lisinopril for hypertension. He had an outpatient follow-up with Dr. Cosby on 03/16/2020, and at that time he underwent ultrasound-guided biopsy of the prostate. He was seen by Dr Lopez on 03/17/2020 for further management. His weight was down 30 pounds from normal. He did have an episode of urinary retention about 6 months ago. At that point he had been started on tamsulosin, and had no further problems with urination. Mr. Lopez began androgen deprivation with Zoladex 10.8 mg on March 17, 2020. He remained on bicalutamide. He has also been recommended to start monthly denosumab injections due to extensive bony metastasis disease. He will also start Xtandi [address] Lopez has also requested Nex[employer] sequencing as well as BRCA analysis. Mr. Lopez is here today for follow-up. He will be starting Xtandi 160 mg daily as well as monthly Xgeva. He has no new concerns today. He states he feels great. He denies any fever or chills. He denies any mouth sores, sore throat or difficulty swallowing. He denies any known Covid exposure or recent testing. He states his bowels and bladder are normal for him. He has urinary frequency but states that is well controlled with the tamulosin. His blood pressure is improved today 127/86. He did have his labs drawn for BRCA screening today. And his pathology specimen has been sent out for NexGen sequencing. He denies any new bone pain. His ECOG is 1. 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 Medications: Bicalutamide 1 (50 mg) Tablet Oral daily Flomax 1 (0.4 mg) Capsule Oral daily Fluticasone-Salmeterol 1 Puff(s) (of 100-50 mcg/dose) Aerosol Powder, Breath Activated Inhalation b.i.d. LORazepam 1 (0.5 mg) Tablet Oral q 4 hours PRN Sertraline HCl 1 (75 mg) Tablet Oral daily Spiriva Respimat 1 (2.5 mcg/act) Aerosol, solution Inhalation daily Family History: Mr. Perezs mother at age 65: asthma. Mr. Lopez's father at age 83: prostate cancer. Father at age 83 with either prostate cancer or bladder cancer. He is not certain. Mother with asthma at age 65. He had no siblings. Social History: Mr. Lopez is . Mr. Lopez no longer smokes. He drinks occasionally. He consumes 2 days/week. 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 He has a history of smoking 1 pack of cigarettes daily for 25 to 30 years. He quit smoking in 2013. He has just occasional alcohol use. Review Of Symptoms: Constitutional Denies fevers, chills, night sweats, excessive fatigue or weight loss. Allergic/Immunologic No reactions. Eyes Denies significant visual changes. No diplopia. No amaurosis. ENMT Denies changes in hearing, sore throat, mouth sores, difficulty or changes in swallowing ability, and/or sinus drainage. Hematologic/Lymphatic Denies easy bruising or bleeding. The patient denies any tender or palpable lymph nodes. Respiratory Denies dyspnea on exertion, chest pain, cough or hemoptysis. Denies orthopnea. Cardiovascular Denies anginal chest pain, palpitations or orthopnea. Gastrointestinal Denies nausea, vomiting, diarrhea, GI bleeding, or constipation. Denies change in bowel habits and/or stool color, no heartburn or early satiety. Genitourinary (M) Denies hematuria, dysuria, increased frequency, urgency, hesitancy or incontinence. Musculoskeletal Denies joint pain, swelling or redness. No decreased range of motion. Integumentary Denies chronic rashes, inflammation, ulcerations or skin changes. Neurologic Denies headache, blurred vision, and no areas of focal weakness or numbness. Psychiatric Denies insomnia, depression, shi or mood swings. Vital Signs: Performed on Apr 12, 2020 08:41 Height - 75.00 in Weight - 160 lbs (LOW) BSA - 2.00 sq.m BMI - 20.00 Temperature - 98 F (LOW) Pulse - 75 /min Respiration - 16 /min BP - 127/86 mm(hg) O2 Sat - 99 % Pain - 0,1 - No physically strenuous activity, but ambulatory and able to carry out light or sedentary work (e.g. office work, light house work). (ECOG) Physical Examination: Constitutional Alert, oriented, no acute distress. Skin pink, warm and dry. Head Normocephalic; atraumatic. Eyes Conjunctivae and sclerae are clear and without icterus. Pupils are reactive and equal. Respiratory Lungs are clear to auscultation without rhonchi or wheezing. Cardiovascular Regular rate and rhythm of heart without murmurs,clicks, gallops or rubs. Abdomen Non-tender, non-distended, no masses or ascites. Good bowel sounds noted in all quads. No guarding or rebound tenderness. No pulsatile masses. Back/Spine Non-tender to palpation. Extremities No visible deformities, no cyanosis, clubbing or edema. Musculoskeletal No tenderness or swelling, normal range of motion without obvious weakness. Integumentary No rashes or lesions. Neurologic No sensory or motor deficits, normal cerebellar function, normal gait. Psychiatric Alert and oriented times three. Coherent speech. Verbalizes understanding of our discussions today. Laboratory:Test performed on Apr 12, 2020 08:14 Sodium 135 mmol/L Testosterone, Total 2.5 ng/dL Potassium 4.3 mmol/L Chloride 99 mmol/L CO2 28 mmol/L Anion Gap 12.3 BUN 10 mg/dL Creatinine 0.7 mg/dL Cr Clearance (Est) 99.3600 mL/min Glucose 108 mg/dL Osmolality - Calculated 280 mOsm/kg Calcium 8.8 mg/dL Protein, Total 6.6 g/dL Albumin 4.0 g/dL Globulin 2.6 g/dL Bilirubin, Total 0.3 mg/dL ALT (SGPT) 18 U/L AST (SGOT) 22 U/L Alkaline Phosphatase 1312 IU/L WBC 3.2 10 3/uL RBC 3.16 10 6/uL HGB 9.1 g/dL HCT 31.1 % MCV 98.4 fL MCH 28.8 pg MCHC 29.3 g/dL RDW 21.7 % Platelet Count 166 10 3/cmm MPV 9.5 fL Neutrophils 1.02 10 3/uL Lymphocytes 1.3 10 3/uL Monocytes 0.5 10 3/uL Eosinophils 0.1 10 3/uL Basophils 0.1 10 3/uL Neutrophil % 32.1 % Lymphocyte % 40.1 % Monocyte % 16.4 % Eosinophil % 4.1 % Basophils % 1.6 % NRBC % 20.5 % CBC Slide Review Slide Review Perform SLIDE REVIEW AGREES WITH AUTOMATED RESULTS ST PSA 32.620 ng/mL Test performed on Mar 14, 2020 10:42 Manual Segs % 53 % WBC - Corrected 5.5 10 3/cmm Manual Bands % 8.0 % Manual Lymphs % 22 % Atypical Lymphs % 0.0 % Total Cells Counted 100 Manual Monos % 4.0 % Manual Eos % 3 % Manual Basos % 0.0 % Metamyelocytes % 7.0 % Myelocytes % 2.0 % Promyelocytes % 1.0 % Smudge Cells 1+ Polychromasia Trace Anisocytosis 1+ Macrocytosis Trace Poikilocytosis Trace Platelet Estimate Decreased Manual Segs Abs 3.3 10/cmm Manual Bands Abs 0.5 10 3/cmm Manual Neutrophils Abs 3.8 10 3/cmm Manual Monocytes Abs 0.2 10 3/cmm Manual Eosinophils Abs 0.1 10 3/cmm Manual Basophils Abs 0.0 10 3/cmm Impression: 1. Metastatic prostate cancer with CT evidence of widespread sclerotic bony metastatic disease and mediastinal, retrocrural, retroperitoneal, and right external iliac lymphadenopathy in association with markedly elevated PSA level. 2. COPD. 3. Anxiety/depression. Plan: PROBLEMS ADDRESSED TODAY 1. Metastatic prostate cancer with CT evidence of widespread sclerotic bony metastatic disease and mediastinal, retrocrural, retroperitoneal, and right external iliac lymphadenopathy in association with markedly elevated PSA level. In addition, his CBC and blood smear findings are consistent with bone marrow involvement. He had ultrasound-guided biopsy of the prostate yesterday, and that result is pending. During this time he has started bicalutamide 50 mg daily. He does appear to be showing symptomatic improvement. A. He began androgen deprivation therapy with Zoladex 10.8 mg on 03/17/2020. B. Stop bicalutamide and start Xtandi 160 mg p.o. daily C. AVOID GRAPEFRUIT PRODUCTS WITH XTANDI D. Today's labs reviewed in detail discussed with Mr. Lopez and a copy was given to him. WBC 3.2, hemoglobin 9.1, platelets 1 66,000 ANC is 1020. Potassium 4.3 creatinine 0.7 LFTs are normal alk phos is 1312 (presumably due to healing bone metastasis). His PSA today is 32.6 and was reported at 1344 in January 2020. 2. He has extensive bony metastatic disease A. Begin monthly denosumab 120 mg???he will start this today. ADDENDUM It was elected to delay the start of the denosumab until his 2-week follow-up as he will be starting the Xtandi today and there was concern about possible side effects and then not knowing which drug was causing it. B. We are currently not feeling any pain meds for him but given his extensive metastatic bone disease he may need pain control in the future. 3. He recently started amlodipine and lisinopril for hypertension. A. He became hypotensive at home with addition of amlodipine and lisinopril apparently. Both medications were stopped. B. His blood pressure is stable here in the clinic today at 127/86. He will continue his current regimen for now. 4. He also was started on Metformin for steroid related hyperglycemia. His blood sugars have not been significantly elevated and he has now completed his course of steroid therapy. As such, he is advised to also stop the Metformin. His random glucose today is 108. 5. Follow-up plan A. We will have him repeat labs with CBC CMP weekly and follow-up in 2 weeks. We will also plan for follow-up with CBC CMP PSA in 4 weeks at which time he will be due for the denosumab once again. B. The patient was informed of chemotherapy plan and specific drugs were discussed. We also discussed how chemotherapy works and identified common side effects including alopecia; myelosuppression-including neutropenia, anemia, thrombocytopenia; peripheral neuropathy; fatigue; nausea; diarrhea; constipation; bleeding or bruising; skin changes; mouth sores; drug hypersensitivity/allergic reactions or anaphylaxis and extravasation. They have also been informed how to contact the clinic with side effects or symptoms, including but not limited to fever greater than 100.4???, chills, sore throat, bleeding or bruising that is not explained or mouth sores, cough, nasal discharge, diarrhea, constipation, nausea and/or vomiting not relieved with medications on hand at home, as well as any other concern or question they may have. Our hours are 8:00 a.m. to 4:30 p.m. on Saturday through and 8-12:00 on Saturday. 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 We have also discussed potential long-term side effects of chemotherapy including secondary cancers, infertility, pulmonary complications, cardiac complications, and again peripheral neuropathy. We have discussed that they certainly need to let us know before taking any antioxidants or herbal or further dietary supplements, as we are unsure of how these agents react with chemotherapy and we request that they avoid these products for now. They were informed that it is okay to take multivitamins at normal doses. They verbally state that they understand to take all medications as directed by their healthcare provider unless otherwise indicated. They also verbalized understanding to leave the pressure dressing on the intravenous administration site for at least two hours after treatment. Instructions for oral care with baking soda and salt water rinses as well as a guide for use of [id number] medication were provided with the treatment plan. They have been given a written patient treatment plan, of which a copy is in the chart, as well as specific drug information. They have no questions and verbalized understanding and are willing to proceed with chemotherapy at this time. C. The patient and family were informed of potential side effects of Xgeva (monoclonal antiboidy that binds to RANKL) include but not limited to nausea/vomiting, rash, fatigue, dizziness, hypophosphatemia, hypokalemia, hypomagnesemia, constipation, diarrhea, anemia, bone pain, myalgia, dyspnea, fever, cough, osteonecrosis of the jaw, hypocalcemia, cystitis and site reactions, such as infection, redness, swelling. They were instructed how to reach the provider roll contour grinder if questions or concerns arise. D. The majority this visit was discussing plan of care, answering questions, educating regarding side effect identification and management. Greater than 60 minutes was spent in review of plan of care and patient records prior to visit, discussing current plan of care/educating regarding new medications and side effect identification and management as well as post visit documentation. Mr. Lopez will require close monitoring given that he is already neutropenic to begin his new therapy with the antineoplastic/antiandrogen therapy with Xtandi. Is also high risk for bone pain given his multiple bone metastasis and addition of Xgeva/denosumab. Signed By: Farrukh Paniagua-, AOCNP Trung Lopez MD <<Signature on File>>
== END 2020-04-12 07:32 | disposition home or self-care (01) ==
LOC: ONCMED 07:33
PROVIDERS: Internal Medicine Medical Oncology; PCP Family Medicine; Visit Provider Nurse Practitioner
DX: C61 Malignant neoplasm of prostate (principal); C79.51 Secondary malignant neoplasm of bone; C77.8 Secondary and unspecified malignant neoplasm of lymph nodes of multiple regions; J44.9 Chronic obstructive pulmonary disease, unspecified; F41.9 Anxiety disorder, unspecified; F41.8 Other specified anxiety disorders; R73.9 Hyperglycemia, unspecified; R97.20 Elevated prostate specific antigen [PSA]
CPT/HCPCS: 36415; 80053; 84153; 84403; 85025; 99215

== ENCOUNTER 2020-05-02 05:49 | Outpatient (CLI) | payer MEDICARE, SELFPAY ==
[2020-05-02 12:35] LABS: Basophils # 0.1 10^3/uL (0.0-0.1); Basophils % 1.8 %; Eosinophils # 0.2 10^3/uL (0.0-0.8); Eosinophils % 4.6 %; Hematocrit 35.7 % (42.0-52.0); Hemoglobin 10.4 g/dL (11.7-16.6); Lymphocytes # 1.1 10^3/uL (0.8-4.8); Lymphocytes % 26.9 %; Mean Corpuscular HGB Conc 29.1 g/dL (30.0-36.0); Mean Corpuscular Hemoglobin 28.9 pg (28.0-34.0); Mean Corpuscular Volume 99.2 fL (80-94); Mean Platelet Volume 10.2 fL (7.4-10.4); Monocytes # 0.3 10^3/uL (0.2-0.9); Monocytes % 7.4 %; Neutrophils # 2.28 10^3/uL (1.8-7.7); Neutrophils % 58.3 %; Nucleated Red Blood Cells % 0.5 %; Platelet Count 313 10^3/cmm (130-400); White Blood Count 3.9 10^3/uL (4.0-10.0)
[2020-05-02 13:30] LABS: Alanine Aminotransferase 19 U/L (0-41); Albumin Level 4.1 g/dL (3.5-5.2); Alkaline Phosphatase 817 IU/L (40-130); Aspartate Amino Transferase 20 U/L (0-40); Blood Urea Nitrogen 10 mg/dL (8-23); Carbon Dioxide 29 mmol/L (22-29); Chloride 101 mmol/L (98-107); Globulin 2.5 g/dL (1.3-4.6); Glucose 108 mg/dL (65-115); Osmolality Calculated 290 mOsm/kg (285-295); Sodium 140 mmol/L (136-145); Total Bilirubin 0.3 mg/dL (0.15-1.2); Total Protein 6.6 g/dL (6.6-8.7)
--- NOTE | 2020-05-02 21:42 | ONC FU_ITS ---
[facility] Patient Note Patient: Bartolo Lopez Unit #: [id number]: [id number] Dictated By: Farrukh PaniaguaDate of Visit: May 02, 2020 Onc MED Follow-Up/Prog Note Chief Complaint: Prostate cancer. 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 He has known COPD and he also has had some chronic anxiety. He has previously been in good general health. On 03/08/2020 he was admitted to the hospital with complaints of weakness, back pain, and shortness of breath. The back pain had started in the early part of January. He thought it was just of back sprain, but it had continued to gradually worsen. His evaluation in the emergency room included lumbar spine CT which showed a diffuse mottled sclerotic appearance throughout the skeleton, suspicious for metastatic prostate cancer. Also noted was retroperitoneal and right iliac chain lymphadenopathy. His CT scans of the chest, abdomen, and pelvis also showed diffuse sclerotic changes throughout the skeletal structures. There were changes of severe centrilobular emphysema. There were multiple bilateral pulmonary nodules measuring up to 5 mm, metastatic disease not excluded. Also noted was retrocrural, posterior mediastinal, retroperitoneal, and right external iliac chain lymphadenopathy. The prostate was enlarged measuring 5.1 x 6.0 x 6.5 cm. He was noted to be mildly anemic with hemoglobin 11.0 g. White blood cell count was normal at 5400 but platelet count also was mildly decreased at 83,000. His differential showed 11 nucleated red cells per 100 WBCs. Renal function was normal with BUN 16 and creatinine 0.7 mg/dL. Calcium was normal at 9.5 mg/dL. Alkaline phosphatase was significantly elevated at 877/130 IUs/L. B12 and folate levels were normal. His PSA level was markedly elevated at 1344 ng/mL. During the hospitalization, he developed hypercapnic acute respiratory failure. This was thought to be due to a panic attack. He started treatment with bicalutamide 50 mg daily. He was given burst steroid therapy and empiric antibiotic coverage with Levaquin for his COPD. At discharge he also was started on Metformin for steroid related hyperglycemia, and he also started amlodipine and lisinopril for hypertension. He had an outpatient follow-up with Dr. Cosby on 03/16/2020, and at that time he underwent ultrasound-guided biopsy of the prostate. He was seen by Dr Lopez on 03/17/2020 for further management. His weight was down 30 pounds from normal. He did have an episode of urinary retention about 6 months ago. At that point he had been started on tamsulosin, and had no further problems with urination. Mr. Lopez began androgen deprivation with Zoladex 10.8 mg on March 17, 2020. He remained on bicalutamide. He has also been recommended to start monthly denosumab injections due to extensive bony metastasis disease. He will also start Xtandi [address] Lopez has also requested [employer] sequencing as well as BRCA analysis. Mr. Lopez is here today for follow-up. He started Xtandi 160 mg daily on 04/13/2020. He has yet to start the monthly Xgeva. He has not yet started due to just starting the Xtandi and is planned to possibly start it today. He has no new concerns today. He states he feels great. He denies any fever or chills. He denies any mouth sores, sore throat or difficulty swallowing. He denies any known Covid exposure or recent testing. He states his bowels and bladder are normal for him. He has urinary frequency but states that is well controlled with the tamulosin. He denies any new bone pain. 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 There is currently no known significance with prostate cancer with this mutation. A copy of the [facility] report was given to him. His ECOG is 1. 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 Medications: Bicalutamide 1 (50 mg) Tablet Oral daily Flomax 1 (0.4 mg) Capsule Oral daily Fluticasone-Salmeterol 1 Puff(s) (of 100-50 mcg/dose) Aerosol Powder, Breath Activated Inhalation b.i.d. LORazepam 1 (0.5 mg) Tablet Oral q 4 hours PRN Sertraline HCl 1 (75 mg) Tablet Oral daily Spiriva Respimat 1 (2.5 mcg/act) Aerosol, solution Inhalation daily Family History: Mr. Lopez's mother at age 65: asthma. Mr. Perezs father at age 83: prostate cancer. Father at age 83 with either prostate cancer or bladder cancer. He is not certain. Mother with asthma at age 65. He had no siblings. Social History: Mr. Lopez is . Mr. Lopez no longer smokes. He drinks occasionally. He consumes 2 days/week. 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 He has a history of smoking 1 pack of cigarettes daily for 25 to 30 years. He quit smoking in 2013. He has just occasional alcohol use. Review Of Symptoms: Constitutional Denies fevers, chills, night sweats, excessive fatigue or weight loss. Allergic/Immunologic No reactions. Eyes Denies significant visual changes. No diplopia. No amaurosis. ENMT Denies changes in hearing, sore throat, mouth sores, difficulty or changes in swallowing ability, and/or sinus drainage. Hematologic/Lymphatic Denies easy bruising or bleeding. The patient denies any tender or palpable lymph nodes. Respiratory Denies dyspnea on exertion, chest pain, cough or hemoptysis. Denies orthopnea. Cardiovascular Denies anginal chest pain, palpitations or orthopnea. Gastrointestinal Denies nausea, vomiting, diarrhea, GI bleeding, or constipation. Denies change in bowel habits and/or stool color, no heartburn or early satiety. Genitourinary (M) Denies hematuria, dysuria, increased frequency, urgency, hesitancy or incontinence. No longer self cathing and urinating much easier without urinary retention. Musculoskeletal Denies joint pain, swelling or redness. No decreased range of motion. Integumentary Denies chronic rashes, inflammation, ulcerations or skin changes. Neurologic Denies headache, blurred vision, and no areas of focal weakness or numbness. Psychiatric Denies insomnia, depression, shi or mood swings. Vital Signs: Performed on May 02, 2020 13:59 Height - 75.00 in Weight - 165.6 lbs (HIGH) BSA - 2.03 sq.m BMI - 20.70 Temperature - 97.0 F (LOW) Pulse - 65 /min Respiration - 22 /min BP - 130/70 mm(hg) O2 Sat - 95 % (LOW) Pain - 0 Fatigue - 0,1 - No physically strenuous activity, but ambulatory and able to carry out light or sedentary work (e.g. office work, light house work). (ECOG) Physical Examination: Constitutional Alert, oriented, no acute distress. Skin pink, warm and dry. Head Normocephalic; atraumatic. Eyes Conjunctivae and sclerae are clear and without icterus. Pupils are reactive and equal. Respiratory Lungs are clear to auscultation without rhonchi or wheezing. Cardiovascular Regular rate and rhythm of heart without murmurs,clicks, gallops or rubs. Back/Spine Non-tender to palpation. Extremities No visible deformities, no cyanosis, clubbing or edema. Musculoskeletal No tenderness or swelling, normal range of motion without obvious weakness. Integumentary No rashes or lesions. Neurologic No sensory or motor deficits, normal cerebellar function, normal gait. Psychiatric Alert and oriented times three. Coherent speech. Verbalizes understanding of our discussions today. Laboratory:Test performed on May 02, 2020 12:05 Sodium 140 mmol/L Potassium 4.0 mmol/L Chloride 101 mmol/L CO2 29 mmol/L Anion Gap 14.0 BUN 10 mg/dL Creatinine 0.6 mg/dL Cr Clearance (Est) 119.98 mL/min Glucose 108 mg/dL Osmolality - Calculated 290 mOsm/kg Calcium 9.0 mg/dL Protein, Total 6.6 g/dL Albumin 4.1 g/dL Globulin 2.5 g/dL Bilirubin, Total 0.3 mg/dL ALT (SGPT) 19 U/L AST (SGOT) 20 U/L Alkaline Phosphatase 817 IU/L WBC 3.9 10 3/uL RBC 3.60 10 6/uL HGB 10.4 g/dL HCT 35.7 % MCV 99.2 fL MCH 28.9 pg MCHC 29.1 g/dL RDW 21.0 % Platelet Count 313 10 3/cmm MPV 10.2 fL Neutrophils 2.28 10 3/uL Lymphocytes 1.1 10 3/uL Monocytes 0.3 10 3/uL Eosinophils 0.2 10 3/uL Basophils 0.1 10 3/uL Neutrophil % 58.3 % Lymphocyte % 26.9 % Monocyte % 7.4 % Eosinophil % 4.6 % Basophils % 1.8 % NRBC % 0.5 % PSA 4.160 ng/mL Test performed on Apr 12, 2020 08:14 Testosterone, Total 2.5 ng/dL CBC Slide Review Slide Review Perform SLIDE REVIEW AGREES WITH AUTOMATED RESULTS ST Test performed on Mar 14, 2020 10:42 Manual Segs % 53 % WBC - Corrected 5.5 10 3/cmm Manual Bands % 8.0 % Manual Lymphs % 22 % Atypical Lymphs % 0.0 % Total Cells Counted 100 Manual Monos % 4.0 % Manual Eos % 3 % Manual Basos % 0.0 % Metamyelocytes % 7.0 % Myelocytes % 2.0 % Promyelocytes % 1.0 % Smudge Cells 1+ Polychromasia Trace Anisocytosis 1+ Macrocytosis Trace Poikilocytosis Trace Platelet Estimate Decreased Manual Segs Abs 3.3 10/cmm Manual Bands Abs 0.5 10 3/cmm Manual Neutrophils Abs 3.8 10 3/cmm Manual Monocytes Abs 0.2 10 3/cmm Manual Eosinophils Abs 0.1 10 3/cmm Manual Basophils Abs 0.0 10 3/cmm Impression: 1. Metastatic prostate cancer with CT evidence of widespread sclerotic bony metastatic disease and mediastinal, retrocrural, retroperitoneal, and right external iliac lymphadenopathy in association with markedly elevated PSA level. 2. COPD. 3. Anxiety/depression. Plan: PROBLEMS ADDRESSED TODAY 1. Metastatic prostate cancer with CT evidence of widespread sclerotic bony metastatic disease and mediastinal, retrocrural, retroperitoneal, and right external iliac lymphadenopathy in association with markedly elevated PSA level. In addition, his CBC and blood smear findings are consistent with bone marrow involvement. He had ultrasound-guided biopsy of the prostate yesterday, and that result is pending. During this time he has started bicalutamide 50 mg daily. He does appear to be showing symptomatic improvement. A. He began androgen deprivation therapy with Zoladex 10.8 mg on 03/17/2020. B. Stopped bicalutamide and started Xtandi 160 mg p.o. daily on 04/13/2020. C. AVOID GRAPEFRUIT PRODUCTS WITH XTANDI D. Today's labs reviewed in detail discussed with & Mrs Lopez and a copy was given to him. WBC 3.9, hemoglobin 10.4, platelets 3 and 13,000 ANC is 2280. Potassium 4.0 creatinine 0.6 LFTs are normal alk phos is improved at 817. His PSA today is 4.160 compared to April 12, 2020 at which time it was 32.6 and was reported at 1344 in January 2020. 2. He has extensive bony metastatic disease A. Begin monthly denosumab 120 mg???We plan to initiate this today but he would like to wait a few more weeks just because things are going so well right now and hate to mess that up . We did discuss potential side effects including bone pain, fatigue, nausea, rash/anaphylaxis reaction. I did print off the information from up-to-date for him to review before his follow-up visit with Dr. Lopez. B. We are currently not filling any pain meds for him but given his extensive metastatic bone disease he may need pain control in the future. 3. He recently started amlodipine and lisinopril for hypertension. A. He became hypotensive at home with addition of amlodipine and lisinopril apparently. Both medications were stopped. B. His blood pressure is stable here in the clinic today at 130/70. He will continue his current regimen for now. 4. He also was started on Metformin for steroid related hyperglycemia. His blood sugars have not been significantly elevated and he has now completed his course of steroid therapy. As such, he is advised to also stop the Metformin. His random glucose today is 108. 5. Follow-up plan A. We will have him repeat labs with CBC CMP PSA and follow-up in 2-4 weeks. B. We will plan to followup on the Xgeva at that time. C. Mr. Lopez was encouraged to contact us in interim should questions or problems arise. Signed By: Marlyn Paniagua.P.-HAMILTON, AOCNP Trung Lopez MD <<Signature on File>>
== END 2020-05-02 05:50 | disposition home or self-care (01) ==
LOC: ONCMED 05:53
PROVIDERS: PCP Family Medicine; Visit Provider Nurse Practitioner
DX: C61 Malignant neoplasm of prostate (principal); C79.51 Secondary malignant neoplasm of bone; I10 Essential (primary) hypertension; R73.9 Hyperglycemia, unspecified; T38.0X5A Adverse effect of glucocorticoids and synthetic analogues, initial encounter; Z79.52 Long term (current) use of systemic steroids; Z79.899 Other long term (current) drug therapy; Z79.818 Long term (current) use of other agents affecting estrogen receptors and estrogen levels
CPT/HCPCS: 36415; 80053; 84153; 85025; 99214

== ENCOUNTER 2020-05-18 06:00 | Outpatient (RCR) | payer MEDICARE, SELFPAY | END 2020-06-10 23:59 | disposition home or self-care (01) | LOC: SPT 06:00 | PROVIDERS: PCP Family Medicine; Referring Provider Internal Medicine Medical Oncology; Visit Provider Internal Medicine Medical Oncology | DX: C61 Malignant neoplasm of prostate (principal); C79.51 Secondary malignant neoplasm of bone | CPT/HCPCS: 97161 ==

== ENCOUNTER 2020-05-23 07:44 | Outpatient (CLI) | payer MEDICARE, SELFPAY ==
[2020-05-23 08:20] LABS: Basophils % 0.8 %; Eosinophils # 0.2 10^3/uL (0.0-0.8); Eosinophils % 4.4 %; Hematocrit 37.7 % (42.0-52.0); Hemoglobin 11.2 g/dL (11.7-16.6); Lymphocytes # 1.2 10^3/uL (0.8-4.8); Lymphocytes % 25.5 %; Mean Corpuscular HGB Conc 29.7 g/dL (30.0-36.0); Mean Corpuscular Hemoglobin 28.8 pg (28.0-34.0); Mean Corpuscular Volume 96.9 fL (80-94); Mean Platelet Volume 10.9 fL (7.4-10.4); Monocytes # 0.5 10^3/uL (0.2-0.9); Monocytes % 10.1 %; Neutrophils # 2.78 10^3/uL (1.8-7.7); Neutrophils % 58.8 %; Nucleated Red Blood Cells % 0 %; Platelet Count 294 10^3/cmm (130-400); Red Blood Count 3.89 10^6/uL (4.1-5.3); Red Cell Distribution Width 18.4 % (12.1-15.1); White Blood Count 4.7 10^3/uL (4.0-10.0)
[2020-05-23 08:50] LABS: Alanine Aminotransferase 12 U/L (0-41); Albumin Level 4.4 g/dL (3.5-5.2); Aspartate Amino Transferase 14 U/L (0-40); Blood Urea Nitrogen 13 mg/dL (8-23); Calcium 9.1 mg/dL (8.5-10.5); Carbon Dioxide 30 mmol/L (22-29); Chloride 102 mmol/L (98-107); Glucose 115 mg/dL (65-115); Osmolality Calculated 289 mOsm/kg (285-295); Sodium 139 mmol/L (136-145); Total Bilirubin 0.3 mg/dL (0.15-1.2); Total Protein 6.6 g/dL (6.6-8.7)
[2020-05-23 08:51] LABS: Alkaline Phosphatase 373 IU/L (40-130); Globulin 2.2 g/dL (1.3-4.6)
--- NOTE | 2020-05-24 07:30 | ONC FU_ITS ---
Dr. Lopez Patient Follow-Up Note Patient: Bartolo Lopez Unit #: [id number]: [id number] Dicatated By: Trung Lopez M.D.Date of Visit:May 23, 2020 Onc Med Follow-up/Prog Note Chief Complaint: Prostate cancer. 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 On 03/08/2020 he was admitted to the hospital with complaints of weakness, back pain, and shortness of breath. The back pain had started in the early part of January. He thought it was just of back sprain, but it had continued to gradually worsen. His evaluation in the emergency room included lumbar spine CT which showed a diffuse mottled sclerotic appearance throughout the skeleton, suspicious for metastatic prostate cancer. Also noted was retroperitoneal and right iliac chain lymphadenopathy. His CT scans of the chest, abdomen, and pelvis also showed diffuse sclerotic changes throughout the skeletal structures. There were changes of severe centrilobular emphysema. There were multiple bilateral pulmonary nodules measuring up to 5 mm, metastatic disease not excluded. Also noted was retrocrural, posterior mediastinal, retroperitoneal, and right external iliac chain lymphadenopathy. The prostate was enlarged measuring 5.1 x 6.0 x 6.5 cm. He was noted to be mildly anemic with hemoglobin 11.0 g. White blood cell count was normal at 5400 but platelet count also was mildly decreased at 83,000. His differential showed 11 nucleated red cells per 100 WBCs. Renal function was normal with BUN 16 and creatinine 0.7 mg/dL. Calcium was normal at 9.5 mg/dL. Alkaline phosphatase was significantly elevated at 877/130 IUs/L. B12 and folate levels were normal. His PSA level was markedly elevated at 1344 ng/mL. During the hospitalization, he developed hypercapnic acute respiratory failure. This was thought to be due to a panic attack. He started treatment with bicalutamide 50 mg daily. He was given burst steroid therapy and empiric antibiotic coverage with Levaquin for his COPD. At discharge he also was started on metformin for steroid related hyperglycemia, and he also started amlodipine and lisinopril for hypertension. He had an outpatient follow-up with Dr. Cosby on 03/16/2020, and at that time he underwent ultrasound-guided biopsy of the prostate. Pathology showed high-grade prostatic adenocarcinoma, Bernarda score 10 (5+5). 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 On next generation sequencing, his tumor was noted to be MSI stable. The tumor mutation burden was low. There were no actionable mutations identified. 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 On 03/17/2019 when he began androgen deprivation therapy with Zoladex. During subsequent follow-up his antiandrogen therapy was transitioned to enzalutamide 160 mg daily. As of 04/13/2019 when his PSA was down to 32.620 ng/mL and by 05/02/2020 it had further decreased to 4.160 ng/mL. His other medical illnesses have been limited to COPD and chronic anxiety. He has a history of smoking 1 pack of cigarettes daily for 25 to 30 years. He quit smoking in 2013. He is seen for a follow-up visit. He has been feeling good generally. He has had significant improvement in his energy and activity tolerance. He is doing light work. His ECOG score is 1. He has good appetite. He has not had fever or night sweats. He does have some hot flashes, mainly in the evening. Those are tolerable. He still has some shortness of breath. He has home oxygen, which she now uses only as needed. He does not complain of cough and he has not been having chest pain. He has no GI complaints. He had developed urinary retention and for several weeks he was self catheterizing. His bladder function is now improving. He has no significant joint or bone pain. He does not complain of headache or dizziness, and he has no focal neurologic symptoms. Medications: Bicalutamide 1 (50 mg) Tablet Oral daily, Flomax 1 (0.4 mg) Capsule Oral daily, Fluticasone-Salmeterol 1 Puff(s) (of 100-50 mcg/dose) Aerosol Powder, Breath Activated Inhalation b.i.d., LORazepam 1 (0.5 mg) Tablet Oral q 4 hours PRN, Sertraline HCl 1 (75 mg) Tablet Oral daily, Spiriva Respimat 1 (2.5 mcg/act) Aerosol, solution Inhalation daily Allergies: No Known Allergies. Vital Signs: Performed on May 23, 2020 15:19 Height - 75.00 in Weight - 167.8 lbs (HIGH) BSA - 2.04 sq.m BMI - 20.97 Temperature - 97.5 F (LOW) Pulse - 70 /min Respiration - 20 /min BP - 158/98 mm(hg) (HIGH) O2 Sat - 91 % (LOW) Pain - 0 Fatigue - 0 Physical Examination: Constitutional - He looks pretty good generally, Eyes - Sclerae nonicteric. Conjunctivae clear, ENMT - No lesions noted in the oral cavity, Hematologic/Lymphatic - No cervical, clavicular, or axillary adenopathy, Respiratory - Lungs are clear with some decrease in air movement bilaterally, Cardiovascular - Heart rhythm is regular. There is no murmur, gallop, or rub noted, Abdomen - Soft. Liver and spleen are not enlarged. There is no abdominal mass or ascites noted and there is no inguinal adenopathy, Extremities - No edema, Neurologic - No focal neurologic deficits noted. Lab/Imaging: Test performed on May 23, 2020 07:53 Sodium 139 mmol/L Potassium 4.0 mmol/L Chloride 102 mmol/L CO2 30 mmol/L Anion Gap 11.0 BUN 13 mg/dL Creatinine 0.6 mg/dL Cr Clearance (Est) 121.57 mL/min Glucose 115 mg/dL Osmolality - Calculated 289 mOsm/kg Calcium 9.1 mg/dL Protein, Total 6.6 g/dL Albumin 4.4 g/dL Globulin 2.2 g/dL Bilirubin, Total 0.3 mg/dL ALT (SGPT) 12 U/L AST (SGOT) 14 U/L Alkaline Phosphatase 373 IU/L WBC 4.7 10 3/uL RBC 3.89 10 6/uL HGB 11.2 g/dL HCT 37.7 % MCV 96.9 fL MCH 28.8 pg MCHC 29.7 g/dL RDW 18.4 % Platelet Count 294 10 3/cmm MPV 10.9 fL Neutrophils 2.78 10 3/uL Lymphocytes 1.2 10 3/uL Monocytes 0.5 10 3/uL Eosinophils 0.2 10 3/uL Basophils 0.0 10 3/uL Neutrophil % 58.8 % Lymphocyte % 25.5 % Monocyte % 10.1 % Eosinophil % 4.4 % Basophils % 0.8 % NRBC % 0 % PSA 1.230 ng/mL Problem List: 1. High-grade prostatic adenocarcinoma, Bernarda score 10 (5+5), stage IVB with CT evidence of multiple sites of metastatic involvement. 2. COPD. 3. Hypertension. 4. Anxiety/depression. Problems Addressed with this Encounter and Plan: 1. Patient with high-grade prostatic adenocarcinoma, Ringling score 10 (5+5), stage IVB. At presentation he had CT evidence of widespread sclerotic bony metastatic disease, multiple bilateral pulmonary nodules, and mediastinal, retrocrural, retroperitoneal, and right external iliac lymphadenopathy in association with markedly elevated PSA level. In addition, his CBC and blood smear findings were consistent with bone marrow involvement. He began antiandrogen therapy with bicalutamide 50 mg daily. On 03/17/2020 he started androgen deprivation therapy with Zoladex 10.8 mg. His antiandrogen was subsequently transitioned to enzalutamide 160 mg daily. He has been showing a very good response by PSA level, and there has been significant improvement in his clinical status. Thus far he has been tolerating treatment with minimal side effects. As such, he will continue enzalutamide 160 mg daily. He will be scheduled to return for his next Zoladex injection and a 3-month interval, and he will then be scheduled for follow-up at another 3-month interval. 2. During his hospitalization in February he was found to be hypertensive. He had subsequently stopped his antihypertensive medication. His blood pressure now is mildly elevated again, and he will require further monitoring. If it is consistently elevated, he will need to restart treatment. Signed By: Trung Lopez M.D. <<Signature on File>>
== END 2020-05-23 07:45 | disposition home or self-care (01) ==
PROVIDERS: PCP Family Medicine; Visit Provider Internal Medicine Medical Oncology
DX: C61 Malignant neoplasm of prostate (principal); C79.51 Secondary malignant neoplasm of bone; R91.8 Other nonspecific abnormal finding of lung field; R59.0 Localized enlarged lymph nodes; I10 Essential (primary) hypertension; Z79.818 Long term (current) use of other agents affecting estrogen receptors and estrogen levels; Z79.899 Other long term (current) drug therapy
CPT/HCPCS: 80053; 84153; 85025; 99214

== ENCOUNTER 2020-06-16 13:06 | Outpatient (CLI) | payer MEDICARE, SELFPAY ==
[2020-06-16] MEDS: lidocaine 1% INJ 20 mL INJECTION (13:26)
[2020-06-16] MEDS: goserelin acetate 10.8 mg Implant IM (13:33)
== END 2020-06-16 13:07 | disposition home or self-care (01) ==
PROVIDERS: PCP Family Medicine; Visit Provider Internal Medicine Medical Oncology
DX: Z51.11 Encounter for antineoplastic chemotherapy (principal); C61 Malignant neoplasm of prostate; C79.51 Secondary malignant neoplasm of bone
CPT/HCPCS: 96372; 96402; J9202

== ENCOUNTER → 2020-07-19 11:57 | Outpatient (BNVA) | payer MEDICARE, SELFPAY | PROVIDERS: PCP Family Medicine; Visit Provider Internal Medicine Pulmonary Disease | DX: Z01.812 Encounter for preprocedural laboratory examination (principal); Z20.822 Contact with and (suspected) exposure to COVID-19; Z11.52 Encounter for screening for COVID-19 | CPT/HCPCS: 87635 ==

== ENCOUNTER 2020-07-25 08:52 | Outpatient (CLI) | payer MEDICARE, SELFPAY ==
--- NOTE | 2020-07-25 10:14 | PFTS_ITS ---
Date of Study:07/25/20 Date of Dictation: 08/02/20 MECHANICS: Post bronchodilator Forced vital capacity (FVC) is reducedl . Post bronchodilator Forced expiratory volume in one second (FEV1) is very severely reduced 21% . FEV1/FVC is significantly reduced. There is no significant response to bronchodilators . FLOW VOLUME LOOP: severe sloping of expiratory limb suggestive of severe airway obstruction . LUNG VOLUMES: Total lung capacity (TLC) is normal . Very high Residual volume (RV) suggestive of severe air trapping. DIFFUSING CAPACITY FOR CARBON MONOXIDE: severely reduced 39%. INTERPRETATION: The pulmonary function tests are consistent with severe obstructive ventilatory defect with significant air trapping on lung volumes and severely reduced gas transfer suggesting underlying severe emphysema. Clinical correlation recommended. [facility]
== END 2020-07-25 08:53 | disposition home or self-care (01) ==
PROVIDERS: PCP Family Medicine; Visit Provider Internal Medicine Pulmonary Disease
DX: J44.9 Chronic obstructive pulmonary disease, unspecified (principal)
CPT/HCPCS: 94060; 94618; 94726; 94729; J7611

== ENCOUNTER 2020-09-21 13:01 | Outpatient (CLI) | payer MEDICARE, SELFPAY ==
[2020-09-21 13:24] LABS: Basophils % 0.5 %; Eosinophils # 0.2 10^3/uL (0.0-0.8); Eosinophils % 2.8 %; Hematocrit 42.6 % (42.0-52.0); Lymphocytes # 1.2 10^3/uL (0.8-4.8); Lymphocytes % 19.2 %; Mean Corpuscular HGB Conc 30.5 g/dL (30.0-36.0); Mean Corpuscular Hemoglobin 27.3 pg (28.0-34.0); Mean Corpuscular Volume 89.5 fL (80-94); Monocytes # 0.6 10^3/uL (0.2-0.9); Monocytes % 9.2 %; Neutrophils # 4.28 10^3/uL (1.8-7.7); Neutrophils % 66.7 %; Nucleated Red Blood Cells % 0 %; Platelet Count 197 10^3/cmm (130-400); Red Blood Count 4.76 10^6/uL (4.1-5.3); White Blood Count 6.4 10^3/uL (4.0-10.0)
[2020-09-21 14:02] LABS: Alanine Aminotransferase 13 U/L (0-41); Albumin Level 4.1 g/dL (3.5-5.2); Alkaline Phosphatase 72 IU/L (40-130); Anion Gap 11.1 (5-19); Aspartate Amino Transferase 20 U/L (0-40); Blood Urea Nitrogen 15 mg/dL (8-23); Calcium 9.5 mg/dL (8.5-10.5); Carbon Dioxide 32 mmol/L (22-29); Chloride 101 mmol/L (98-107); Globulin 2.5 g/dL (1.3-4.6); Glucose 77 mg/dL (65-115); Osmolality Calculated 290 mOsm/kg (285-295); Potassium 4.1 mmol/L (3.5-5.1); Sodium 140 mmol/L (136-145); Total Bilirubin 0.2 mg/dL (0.15-1.2); Total Protein 6.6 g/dL (6.6-8.7)
[2020-09-21 14:39] LABS: Testosterone Total 9.1 ng/dL (193-740)
[2020-09-21] MEDS: lidocaine 1% INJ 20 mL INJECTION (15:10)
[2020-09-21] MEDS: denosumab 120 mg SDV SUBCUT (15:25)
[2020-09-21] MEDS: goserelin acetate 10.8 mg Implant SUBCUT (15:27)
--- NOTE | 2020-09-22 18:57 | ONC FU_ITS ---
Dr. Lopez Patient Follow-Up Note Patient: Bartolo Lopez Unit #: [id number]: [id number] Dicatated By: Trung Lopez M.D.Date of Visit:Sep 21, 2020 Onc Med Follow-up/Prog Note Chief Complaint: Prostate cancer. 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 On 03/08/2020 he was admitted to the hospital with complaints of weakness, back pain, and shortness of breath. The back pain had started in the early part of January. He thought it was just of back sprain, but it had continued to gradually worsen. His evaluation in the emergency room included lumbar spine CT which showed a diffuse mottled sclerotic appearance throughout the skeleton, suspicious for metastatic prostate cancer. Also noted was retroperitoneal and right iliac chain lymphadenopathy. His CT scans of the chest, abdomen, and pelvis also showed diffuse sclerotic changes throughout the skeletal structures. There were changes of severe centrilobular emphysema. There were multiple bilateral pulmonary nodules measuring up to 5 mm, metastatic disease not excluded. Also noted was retrocrural, posterior mediastinal, retroperitoneal, and right external iliac chain lymphadenopathy. The prostate was enlarged measuring 5.1 x 6.0 x 6.5 cm. He was noted to be mildly anemic with hemoglobin 11.0 g. White blood cell count was normal at 5400 but platelet count also was mildly decreased at 83,000. His differential showed 11 nucleated red cells per 100 WBCs. Renal function was normal with BUN 16 and creatinine 0.7 mg/dL. Calcium was normal at 9.5 mg/dL. Alkaline phosphatase was significantly elevated at 877/130 IUs/L. B12 and folate levels were normal. His PSA level was markedly elevated at 1344 ng/mL. During the hospitalization, he developed hypercapnic acute respiratory failure. This was thought to be due to a panic attack. He started treatment with bicalutamide 50 mg daily. He was given burst steroid therapy and empiric antibiotic coverage with Levaquin for his COPD. At discharge he also was started on metformin for steroid related hyperglycemia, and he also started amlodipine and lisinopril for hypertension. He had an outpatient follow-up with Dr. Cosby on 03/16/2020, and at that time he underwent ultrasound-guided biopsy of the prostate. Pathology showed high-grade prostatic adenocarcinoma, Bernarda score 10 (5+5). 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 On next generation sequencing, his tumor was noted to be MSI stable. The tumor mutation burden was low. There were no actionable mutations identified. 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 On 03/17/2019 when he began androgen deprivation therapy with Zoladex. His antiandrogen therapy was subsequently transitioned to enzalutamide 160 mg daily. During follow-up there was a gradual decline in his PSA level. As of 05/23/2020 it was down to 1.230 ng/mL. His other medical illnesses have been limited to COPD and chronic anxiety. He has a history of smoking 1 pack of cigarettes daily for 25 to 30 years. He quit smoking in 2013. He is seen for a follow-up visit. He has been feeling good generally. He says his energy is fine. He has normal activity. ECOG score is 0. His appetite is good. He has GI complaints. His bladder function has improved, and he is no longer having to self catheterize. He is not having any joint or bone pain. He does not complain of headache or dizziness. He has no focal neurologic symptoms. Medications: amLODIPine Besylate 1 (5 mg) Tablet Oral daily, Bicalutamide 1 (50 mg) Tablet Oral daily, Flomax 1 (0.4 mg) Capsule Oral daily, Fluticasone-Salmeterol 1 Puff(s) (of 100-50 mcg/dose) Aerosol Powder, Breath Activated Inhalation b.i.d., Lisinopril 1 (20 mg) Tablet Oral daily, LORazepam 1 (0.5 mg) Tablet Oral q 4 hours PRN, Sertraline HCl 1 (50 mg) Tablet Oral daily, Spiriva Respimat 1 (2.5 mcg/act) Aerosol, solution Inhalation daily Allergies: No Known Allergies. Vital Signs: Performed on Sep 21, 2020 15:13 Height - 75.00 in Weight - 174.6 lbs (HIGH) BSA - 2.07 sq.m BMI - 21.82 Temperature - 95.6 F (LOW) Pulse - 82 /min Respiration - 18 /min BP - 131/85 mm(hg) O2 Sat - 93 % (LOW) Pain - 0 Fatigue - 0 Physical Examination: Constitutional - He looks good generally, Eyes - Sclerae nonicteric. Conjunctivae clear, ENMT - No lesions noted in the oral cavity, Hematologic/Lymphatic - No cervical, clavicular, or axillary adenopathy, Respiratory - Lungs are clear with diminished air movement bilaterally, Cardiovascular - Heart rhythm is regular. There is no murmur, gallop, or rub noted, Abdomen - Soft. Liver and spleen are not enlarged. There is no abdominal mass or ascites noted and there is no inguinal adenopathy, Extremities - No edema, Neurologic - No focal neurologic deficits noted. Lab/Imaging: Test performed on Sep 21, 2020 13:10 Sodium 140 mmol/L Testosterone, Total 9.1 ng/dL Potassium 4.1 mmol/L Chloride 101 mmol/L CO2 32 mmol/L Anion Gap 11.1 BUN 15 mg/dL Creatinine 0.7 mg/dL Cr Clearance (Est) 106.86 mL/min Glucose 77 mg/dL Osmolality - Calculated 290 mOsm/kg Calcium 9.5 mg/dL Protein, Total 6.6 g/dL Albumin 4.1 g/dL Globulin 2.5 g/dL Bilirubin, Total 0.2 mg/dL ALT (SGPT) 13 U/L AST (SGOT) 20 U/L Alkaline Phosphatase 72 IU/L WBC 6.4 10 3/uL RBC 4.76 10 6/uL HGB 13.0 g/dL HCT 42.6 % MCV 89.5 fL MCH 27.3 pg MCHC 30.5 g/dL RDW 17.0 % Platelet Count 197 10 3/cmm MPV 11.0 fL Neutrophils 4.28 10 3/uL Lymphocytes 1.2 10 3/uL Monocytes 0.6 10 3/uL Eosinophils 0.2 10 3/uL Basophils 0.0 10 3/uL Neutrophil % 66.7 % Lymphocyte % 19.2 % Monocyte % 9.2 % Eosinophil % 2.8 % Basophils % 0.5 % NRBC % 0 % PSA 37.840 ng/mL Problem List: 1. High-grade prostatic adenocarcinoma, [place] score 10 (5+5), stage IVB with CT evidence of multiple sites of metastatic involvement. 2. COPD. 3. Hypertension. 4. Anxiety/depression. Problems Addressed with this Encounter and Plan: 1. Patient with high-grade prostatic adenocarcinoma, Bernarda score 10 (5+5), stage IVB. At presentation he had CT evidence of widespread sclerotic bony metastatic disease, multiple bilateral pulmonary nodules, and mediastinal, retrocrural, retroperitoneal, and right external iliac lymphadenopathy in association with markedly elevated PSA level. In addition, his CBC and blood smear findings were consistent with bone marrow involvement. He began antiandrogen therapy with bicalutamide 50 mg daily. On 03/17/2020 he started androgen deprivation therapy with Zoladex 10.8 mg. His antiandrogen was subsequently transitioned to enzalutamide 160 mg daily. During follow-up he has continued to complain of hot flashes, but he has otherwise been tolerating the treatment well and overall he has been doing very well clinically. He did show a gradual decline in his PSA level. As of 05/23/2020 it was down to 1.230 ng/mL. Unfortunately it has now increased significantly, to 37.840 ng/mL, so that he does not appear to be showing early disease progression. As he is not symptomatic, for now he will continue androgen deprivation therapy with Zoladex 10.8 mg together with enzalutamide 160 mg daily. His PSA level will be monitored monthly. If it continues to increase, we will need to consider other treatment options. 2. CT evidence of extensive metastatic bone involvement. He will now start treatment with denosumab 120 mg by subcutaneous injection monthly. Signed By: Trung Lopez M.D. <<Signature on File>>
== END 2020-09-21 13:02 | disposition home or self-care (01) ==
LOC: ONCMED 13:05
PROVIDERS: PCP Family Medicine; Visit Provider Internal Medicine Medical Oncology
DX: Z51.11 Encounter for antineoplastic chemotherapy (principal); C61 Malignant neoplasm of prostate; C79.51 Secondary malignant neoplasm of bone; C78.01 Secondary malignant neoplasm of right lung; C78.02 Secondary malignant neoplasm of left lung; C77.8 Secondary and unspecified malignant neoplasm of lymph nodes of multiple regions; J44.9 Chronic obstructive pulmonary disease, unspecified; I10 Essential (primary) hypertension; F41.9 Anxiety disorder, unspecified; F32.9 Major depressive disorder, single episode, unspecified; Z79.818 Long term (current) use of other agents affecting estrogen receptors and estrogen levels; Z92.21 Personal history of antineoplastic chemotherapy
CPT/HCPCS: 36415; 80053; 84153; 84403; 85025; 96372; 96402; 99214; J0897; J9202

== ENCOUNTER 2020-10-20 10:57 | Outpatient (CLI) | payer MEDICARE, SELFPAY ==
[2020-10-20] MEDS: denosumab 120 mg SDV SUBCUT (11:18)
== END 2020-10-20 10:58 | disposition home or self-care (01) ==
LOC: ONCMED 10:59
PROVIDERS: PCP Family Medicine; Visit Provider Internal Medicine Medical Oncology
DX: C79.51 Secondary malignant neoplasm of bone (principal); C61 Malignant neoplasm of prostate; Z79.899 Other long term (current) drug therapy
CPT/HCPCS: 36415; 84153; 96372; J0897

== ENCOUNTER 2020-10-31 08:24 | Outpatient (CLI) | payer MEDICARE, SELFPAY ==
--- NOTE | 2020-10-31 | XR_ITS ---
WS: [id number] FEMUR LEFT TECHNIQUE: 2 views of the left femur CLINICAL INFORMATION: BONE SCAN COMPARISON FINDINGS: Mottled sclerosis left proximal femoral shaft compatible with the bone scan findings. No destructive or large dominant lesions. Mid and distal femoral shaft above more normal appearance. No acute fractu res. No soft tissue mass. Sclerotic metastasis visualized left bony pelvis XR/XR femur LT min 2V* [id number] IMPRESSION: 1. Mottled sclerosis left proximal femoral shaft compatible with the bone scan findings. 2. No destructive or large dominant lesions. 3. Mid and distal femoral shaft above more normal appearance. No acute fractur es.
--- NOTE | 2020-10-31 | XR_ITS ---
WS: [id number] HIP WITH PELVIS LEFT TECHNIQUE: 3 views of the left hip with pelvis CLINICAL INFORMATION: BONE SCAN COMPARISON COMPARISON: None. FINDINGS: Sclerotic metastasis throughout the visualized bony structures. Mild sclerosis involving the femoral neck and proximal visualized femoral shaft. No dominant lesions. XR/XR hip LT 2-3V wo/w pel* [id number] IMPRESSION: 1. Diffuse sclerotic metastasis visualized bony structures 2. Mottled sclerosis left femoral neck and proximal femoral shaft. No destruct acosta or dominant lesions.
--- NOTE | 2020-10-31 08:32 | CT_ITS ---
WS: [id number] CT CHEST, ABDOMEN, AND PELVIS TECHNIQUE: Contrast-enhanced CT of the chest, abdomen, and pelvis with coronal and sagittal reformatt ed images. CLINICAL INFORMATION: METASTATIC PROSTATE CANCER COMPARISON: None. DLP: 1292.[address] scans at [facility] use at least one of these dose optimization techniques: automated e xposure control; mA and/or kV adjustment per patient size (includes targeted exams where dose is matc hed to clinical indication); or iterative reconstruction. CT CHEST: Both lungs are well aerated. Moderate chronic emphysematous changes. Slight subsegmental at electasis in the lung bases. Numerous semisolid pulmonary nodules throughout both lungs some in a sub pleural location are similar in appearance to the prior examination. Fibrotic pleural nodule along th e left posterior mediastinum measuring 8 mm is new from previous. No mediastinal or hilar lymphadenopathy today. Tiny pericardial effusion/pericardial thickening. Norm al caliber thoracic aorta. Posterior mediastinal and retrocrural lymphadenopathy has resolved. Diffuse bony metastatic disease throughout the thoracic and lumbar spine and diffusely throughout the left ribs bilaterally. Additional sclerotic metastatic disease throughout the visualized pelvic bony structures including the sacrum and [place] and hips bilaterally. CT ABDOMEN AND PELVIS: Diffuse fatty infiltration of the liver. Normal portal vein and splenic vein. Normal spleen. Small es ophageal hiatal hernia. Heterogeneous enhancing nodular enlarged prostate measuring appears slightly smaller today measuring 4.6 cm in maximum dimension. Normal seminal vesicles. Diffuse bladder wall thickening likely due to b ladder outlet obstruction. Sigmoid diverticulosis. No evidence of high-grade small or large bowel obs truction. Normal gallbladder. Tiny fat-containing umbilical hernia. Adrenal glands are normal. Normal renal par enchymal enhancement. No hydronephrosis. Slightly ectatic abdominal aorta measuring measuring 2.8 cm in maximum dimension. 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 Previously described periaortic lymphadenopathy and retroperitoneal lymphadenopathy has resolved. No pelvic or inguinal lymphadenopathy. CT/CT chest abd pel w con* IMPRESSION: 1. Diffuse bony metastatic disease throughout the visualized bony structures s imilar in appearance to March 08, 2020. This appears slightly progressed in s ome areas. 2. Diffuse sclerotic metastatic disease throughout the visualized ribs bilater ally, pelvis and sacrum, and proximal femurs. 3. Previously described lymphadenopathy has resolved. No lymphadenopathy in th e chest abdomen or pelvis. 4. Numerous noncalcified pulmonary nodules subcentimeter in size are stable. 5. Nodular enlarged heterogeneously enhancing prostate measuring 4.6 cm is sli ghtly improved compared to previous.
--- NOTE | 2020-10-31 08:32 | NM_ITS ---
WS: [id number] NUCLEAR MEDICINE BONE SCAN Radiopharmaceutical: 25.5 Tc-99m MDP mCi IV Injection site: Antecubital Postinjection imaging delay: 1 hr CLINICAL INFORMATION: RESTAGING/METASTATIC PROSTATE CANCER COMPARISON: None. FINDINGS: Bone lesions: Diffuse confluence bony uptake throughout the visualized thoracic and lumbar spine comp atible with metastatic disease. Additional more faint bony uptake throughout the visualized ribs bila terally. Bilateral proximal femoral bony uptake worse on the lefta compatible with metastatic disease . Faint focal uptake involving the left proximal humerus. Additional faint patchy uptake involving the sacrum with intense focal uptake about the sacroiliac joints. Focal punctate uptake involving the rig ht inferior orbital rim. Punctate uptake overlying the left zygoma. Soft tissue contours: Normal. Kidneys: Normal. Other findings: Degenerative type uptake involving both shoulders. NM/NM bone scan whole body* [id number] IMPRESSION: 1. Diffuse osseous metastatic disease involving the thoracic and lumbar spine. 2. Diffuse patchy uptake ribs bilaterally 3. Metastatic disease involving the left greater than right proximal femurs. 4. Additional patchy low-grade uptake involving the sacrum and sacroiliac join t suspicious for metastatic disease. 5. Punctate focal uptake overlying the right lower orbital rim and left zygoma .
[2020-10-31 09:25] LABS: Blood Urea Nitrogen 11 mg/dL (8-23)
[2020-10-31] MEDS: iohexol 300 mg/mL 100 mL Btl IV (10:10)
[2020-10-31] MEDS: iohexol 300 mg/mL 50 mL Btl PO (10:11)
== END 2020-10-31 08:25 | disposition home or self-care (01) ==
PROVIDERS: PCP Family Medicine; Visit Provider Internal Medicine Medical Oncology
DX: C61 Malignant neoplasm of prostate (principal); N40.0 Benign prostatic hyperplasia without lower urinary tract symptoms; R91.8 Other nonspecific abnormal finding of lung field
CPT/HCPCS: 36415; 71260; 73502; 73552; 74177; 78306; 82565; 84520; A9561

== ENCOUNTER 2020-11-03 12:20 | Outpatient (CLI) | payer MEDICARE, SELFPAY ==
--- NOTE | 2020-11-04 08:16 | ONC FU_ITS ---
Dr. Lopez Patient Follow-Up Note Patient: Bartolo Lopez Unit #: [id number]: [id number] Dicatated By: Trung Lopez M.D.Date of Visit:Nov 03, 2020 Onc Med Follow-up/Prog Note Chief Complaint: Prostate cancer. 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 On 03/08/2020 he was admitted to the hospital with complaints of weakness, back pain, and shortness of breath. The back pain had started in the early part of January. He thought it was just of back sprain, but it had continued to gradually worsen. His evaluation in the emergency room included lumbar spine CT which showed a diffuse mottled sclerotic appearance throughout the skeleton, suspicious for metastatic prostate cancer. Also noted was retroperitoneal and right iliac chain lymphadenopathy. His CT scans of the chest, abdomen, and pelvis also showed diffuse sclerotic changes throughout the skeletal structures. There were changes of severe centrilobular emphysema. There were multiple bilateral pulmonary nodules measuring up to 5 mm, metastatic disease not excluded. Also noted was retrocrural, posterior mediastinal, retroperitoneal, and right external iliac chain lymphadenopathy. The prostate was enlarged measuring 5.1 x 6.0 x 6.5 cm. He was noted to be mildly anemic with hemoglobin 11.0 g. White blood cell count was normal at 5400 but platelet count also was mildly decreased at 83,000. His differential showed 11 nucleated red cells per 100 WBCs. Renal function was normal with BUN 16 and creatinine 0.7 mg/dL. Calcium was normal at 9.5 mg/dL. Alkaline phosphatase was significantly elevated at 877/130 IUs/L. B12 and folate levels were normal. His PSA level was markedly elevated at 1344 ng/mL. During the hospitalization, he developed hypercapnic acute respiratory failure. This was thought to be due to a panic attack. He started treatment with bicalutamide 50 mg daily. He was given burst steroid therapy and empiric antibiotic coverage with Levaquin for his COPD. At discharge he also was started on metformin for steroid related hyperglycemia, and he also started amlodipine and lisinopril for hypertension. He had an outpatient follow-up with Dr. Cosby on 03/16/2020, and at that time he underwent ultrasound-guided biopsy of the prostate. Pathology showed high-grade prostatic adenocarcinoma, Bernarda score 10 (5+5). 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 On next generation sequencing, his tumor was noted to be MSI stable. The tumor mutation burden was low. There were no actionable mutations identified. 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 On 03/17/2020 he began androgen deprivation therapy with Zoladex. His antiandrogen therapy was subsequently transitioned to enzalutamide 160 mg daily. During follow-up there was a gradual decline in his PSA level. As of 05/23/2020 it was down to 1.230 ng/mL. His other medical illnesses have been limited to COPD and chronic anxiety. He has a history of smoking 1 pack of cigarettes daily for 25 to 30 years. He quit smoking in 2013. INTERIM HISTORY: He had continued androgen deprivation therapy with Zoladex 10.8 mg every 3 months together with enzalutamide 160 mg daily. As of his follow-up visit on 09/21/2020, he was doing well clinically, but there was an increase in his PSA level to 37.840 ng/mL. With that change, he had a repeat PSA on 10/20/2020, at which point it had further increased to 80.160 ng/mL. Restaging CT scans of the chest, abdomen, and pelvis on 10/31/2020 showed resolution of previously described periaortic and retroperitoneal lymphadenopathy. Numerous noncalcified subcentimeter pulmonary nodules appeared stable. Nodular enlarged heterogeneously enhancing prostate was noted to be slightly improved, measuring 4.6 cm. There was evidence for diffuse bony metastatic disease throughout the visualized bony structures, similar in appearance to the February 2020 study. Some areas did appear to have slightly progressed. Bone scan also showed evidence for diffuse osseous metastatic disease involving the thoracic and lumbar spine, bilateral ribs, sacrum, and both femurs, left greater than right. He is seen today for review of the CT and bone scans and to discuss further management of the prostate cancer. He is still feeling good generally. He has good energy/activity tolerance, and he has normal activity. His appetite is good. He has continued to gain weight. He has not had fever. He does have hot flashes, but they are tolerable. He has sinus drainage all the time, but he does not complain of cough. He does have shortness of breath, and that has been somewhat worse with the hot weather. He does not complain of chest pain. He has no GI or complaints. He developed some pain in both legs following his denosumab injection 2 weeks ago. It is mostly resolved now. He has no other joint or bone pain. He does not complain of headache or dizziness, and he has no focal neurologic symptoms. Medications: amLODIPine Besylate 1 (5 mg) Tablet Oral daily, Bicalutamide 1 (50 mg) Tablet Oral daily, Flomax 1 (0.4 mg) Capsule Oral daily, Fluticasone-Salmeterol 1 Puff(s) (of 100-50 mcg/dose) Aerosol Powder, Breath Activated Inhalation b.i.d., Lisinopril 1 (20 mg) Tablet Oral daily, LORazepam 1 (0.5 mg) Tablet Oral q 4 hours PRN, Sertraline HCl 1 (50 mg) Tablet Oral daily, Spiriva Respimat 1 (2.5 mcg/act) Aerosol, solution Inhalation daily Allergies: No Known Allergies. Vital Signs: Performed on Nov 03, 2020 12:57 Height - 75.00 in Weight - 177.8 lbs (HIGH) BSA - 2.09 sq.m BMI - 22.22 Temperature - 97.4 F (LOW) Pulse - 66 /min Respiration - 18 /min BP - 165/103 mm(hg) (HIGH) O2 Sat - 95 % (LOW) Pain - 0 Fatigue - 2 Lab/Imaging: Test performed on Oct 20, 2020 11:15 PSA 80.160 ng/mL Problem List: 1. High-grade prostatic adenocarcinoma, Bernarda score 10 (5+5), stage IVB with CT evidence of multiple sites of metastatic involvement. 2. COPD. 3. Hypertension. 4. Anxiety/depression. Problems Addressed with this Encounter and Plan: Patient with high-grade prostatic adenocarcinoma, Bernr[place] score 10 (5+5), stage IVB. At presentation he had CT evidence of widespread sclerotic bony metastatic disease, multiple bilateral pulmonary nodules, and mediastinal, retrocrural, retroperitoneal, and right external iliac lymphadenopathy in association with markedly elevated PSA level. In addition, his CBC and blood smear findings were consistent with bone marrow involvement. He began antiandrogen therapy with bicalutamide 50 mg daily. On 03/17/2020 he started androgen deprivation therapy with Zoladex 10.8 mg. His antiandrogen was subsequently transitioned to enzalutamide 160 mg daily. He had a good response to the treatment by PSA level. As of 05/23/2020 it was down to 1.230 ng/mL. However, as of his 09/21/2020 visit it had increased significantly, to 37.840 ng/mL, and by 10/20/2020 it had further increased to 80.160 ng/mL. At this point he clearly has evidence of biochemical progression. It is uncertain to what extent he may have associated clinical progression. His CT scan showed resolution of metastatic lymphadenopathy, but there was persistent metastatic bone involvment by CT and bone scan. He does not appear to be overtly symptomatic. We discussed the fact that the increasing PSA level is clearly an indication of disease progression and we discussed options for further treatment. As he is not overtly symptomatic, we could first try stopping the enzalutamide, as that may have some response, at least temporarily. The best option otherwise is to proceed with a trial of chemotherapy with docetaxel/prednisone. For now he prefers to continue his same treatment. We will continue to monitor the PSA monthly. If it continues to increase and he remains asymptomatic, he can then try stopping the enzalutamide. I will see him again in 2 weeks. Signed By: Trung Lopez M.D. <<Signature on File>>
== END 2020-11-03 12:21 | disposition home or self-care (01) ==
PROVIDERS: PCP Family Medicine; Visit Provider Internal Medicine Medical Oncology
DX: C61 Malignant neoplasm of prostate (principal); C79.51 Secondary malignant neoplasm of bone; R97.21 Rising PSA following treatment for malignant neoplasm of prostate; J44.9 Chronic obstructive pulmonary disease, unspecified; I10 Essential (primary) hypertension; F41.9 Anxiety disorder, unspecified; F32.9 Major depressive disorder, single episode, unspecified; Z79.899 Other long term (current) drug therapy; Z79.811 Long term (current) use of aromatase inhibitors
CPT/HCPCS: 99214

== ENCOUNTER 2020-11-16 09:08 | Outpatient (CLI) | payer MEDICARE, SELFPAY ==
--- NOTE | 2020-11-16 10:08 | ONC FU_ITS ---
Dr. Lopez Patient Follow-Up Note Patient: Bartolo Lopez Unit #: [id number]: 1950 Dicatated By: Trung Lopez M.D.Date of Visit:Nov 16, 2020 Onc Med Follow-up/Prog Note Chief Complaint: Prostate cancer. 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 On 03/08/2020 he was admitted to the hospital with complaints of weakness, back pain, and shortness of breath. The back pain had started in the early part of January. He thought it was just of back sprain, but it had continued to gradually worsen. His evaluation in the emergency room included lumbar spine CT which showed a diffuse mottled sclerotic appearance throughout the skeleton, suspicious for metastatic prostate cancer. Also noted was retroperitoneal and right iliac chain lymphadenopathy. His CT scans of the chest, abdomen, and pelvis also showed diffuse sclerotic changes throughout the skeletal structures. There were changes of severe centrilobular emphysema. There were multiple bilateral pulmonary nodules measuring up to 5 mm, metastatic disease not excluded. Also noted was retrocrural, posterior mediastinal, retroperitoneal, and right external iliac chain lymphadenopathy. The prostate was enlarged measuring 5.1 x 6.0 x 6.5 cm. He was noted to be mildly anemic with hemoglobin 11.0 g. White blood cell count was normal at 5400 but platelet count also was mildly decreased at 83,000. His differential showed 11 nucleated red cells per 100 WBCs. Renal function was normal with BUN 16 and creatinine 0.7 mg/dL. Calcium was normal at 9.5 mg/dL. Alkaline phosphatase was significantly elevated at 877/130 IUs/L. B12 and folate levels were normal. His PSA level was markedly elevated at 1344 ng/mL. During the hospitalization, he developed hypercapnic acute respiratory failure. This was thought to be due to a panic attack. He started treatment with bicalutamide 50 mg daily. He was given burst steroid therapy and empiric antibiotic coverage with Levaquin for his COPD. At discharge he also was started on metformin for steroid related hyperglycemia, and he also started amlodipine and lisinopril for hypertension. He had an outpatient follow-up with Dr. Cosby on 03/16/2020, and at that time he underwent ultrasound-guided biopsy of the prostate. Pathology showed high-grade prostatic adenocarcinoma, Bernarda score 10 (5+5). 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 On next generation sequencing, his tumor was noted to be MSI stable. The tumor mutation burden was low. There were no actionable mutations identified. 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 On 03/17/2020 he began androgen deprivation therapy with Zoladex. His antiandrogen therapy was subsequently transitioned to enzalutamide 160 mg daily. During follow-up there was a gradual decline in his PSA level. As of 05/23/2020 it was down to 1.230 ng/mL. His other medical illnesses have been limited to COPD and chronic anxiety. He has a history of smoking 1 pack of cigarettes daily for 25 to 30 years. He quit smoking in 2013. INTERIM HISTORY: He had continued androgen deprivation therapy with Zoladex 10.8 mg every 3 months together with enzalutamide 160 mg daily. As of his follow-up visit on 09/21/2020, he was doing well clinically, but there was an increase in his PSA level to 37.840 ng/mL. With that change, he had a repeat PSA on 10/20/2020, at which point it had further increased to 80.160 ng/mL. Restaging CT scans of the chest, abdomen, and pelvis on 10/31/2020 showed resolution of previously described periaortic and retroperitoneal lymphadenopathy. Numerous noncalcified subcentimeter pulmonary nodules appeared stable. Nodular enlarged heterogeneously enhancing prostate was noted to be slightly improved, measuring 4.6 cm. There was evidence for diffuse bony metastatic disease throughout the visualized bony structures, similar in appearance to the February 2020 study. Some areas did appear to have slightly progressed. Bone scan also showed evidence for diffuse osseous metastatic disease involving the thoracic and lumbar spine, bilateral ribs, sacrum, and both femurs, left greater than right. On 11/03/2020 he was seen to discuss options for his further treatment. At that point he preferred to continue his same ADT, as he was not overtly symptomatic. He also continued denosumab for the metastatic bone involvement. He is seen now for a follow-up visit. He has not been feeling as good. His most significant complaint is that he has developed pain in his left hip area rating down the left leg. He is wondering if the pain may not have been caused by the denosumab injection. He also noticed that his energy is lower that he has been feeling more tired. His ECOG score is one. Appetite also is down a little. He has not had fever. He does have hot flashes. He complains that his shortness of breath has increased. He does complain that his pulmonary nebulizer makes him feel jittery, and he uses it infrequently. He does not complain of chest pain. He has no GI or complaints. He currently is not having any other joint or bone pain. He does not complain of headache or dizziness, and he has no focal neurologic symptoms. Medications: amLODIPine Besylate 1 (5 mg) Tablet Oral daily, Bicalutamide 1 (50 mg) Tablet Oral daily, Flomax 1 (0.4 mg) Capsule Oral daily, Fluticasone-Salmeterol 1 Puff(s) (of 100-50 mcg/dose) Aerosol Powder, Breath Activated Inhalation b.i.d., Lisinopril 1 (20 mg) Tablet Oral daily, LORazepam 1 (0.5 mg) Tablet Oral q 4 hours PRN, Sertraline HCl 1 (50 mg) Tablet Oral daily, Spiriva Respimat 1 (2.5 mcg/act) Aerosol, solution Inhalation daily Allergies: No Known Allergies. Vital Signs: Performed on Nov 16, 2020 09:22 Height - 75.00 in Weight - 179.2 lbs (HIGH) BSA - 2.09 sq.m BMI - 22.40 Temperature - 96.8 F (LOW) Pulse - 77 /min Respiration - 20 /min BP - 189/97 mm(hg) (HIGH) O2 Sat - 97 % Pain - 5 Fatigue - 7 Physical Examination: Constitutional - He looks pretty good generally, Eyes - Sclerae nonicteric. Conjunctivae clear, ENMT - No lesions noted in the oral cavity, Hematologic/Lymphatic - No cervical, clavicular, or axillary adenopathy, Respiratory - Lungs are clear with diminished air movement bilaterally, Cardiovascular - Heart rhythm is regular. There is no murmur, gallop, or rub noted, Abdomen - Soft. Liver and spleen are not enlarged. There is no abdominal mass or ascites noted and there is no inguinal adenopathy, Extremities - No edema, Neurologic - No focal neurologic deficits noted. Problem List: 1. High-grade prostatic adenocarcinoma, Bernarda score 10 (5+5), stage IVB with CT evidence of multiple sites of metastatic involvement. 2. COPD. 3. Hypertension. 4. Anxiety/depression. Problems Addressed with this Encounter and Plan: 1. Patient with high-grade prostatic adenocarcinoma, Bernarda score 10 (5+5), stage IVB. At presentation he had CT evidence of widespread sclerotic bony metastatic disease, multiple bilateral pulmonary nodules, and mediastinal, retrocrural, retroperitoneal, and right external iliac lymphadenopathy in association with markedly elevated PSA level. In addition, his CBC and blood smear findings were consistent with bone marrow involvement. He began antiandrogen therapy with bicalutamide 50 mg daily. On 03/17/2020 he started androgen deprivation therapy with Zoladex 10.8 mg. His antiandrogen was subsequently transitioned to enzalutamide 160 mg daily. He had a good response to the treatment by PSA level. As of 05/23/2020 it was down to 1.230 ng/mL. However, as of his 09/21/2020 visit it had increased significantly, to 37.840 ng/mL, and by 10/20/2020 it had further increased to 80.160 ng/mL. At this point he clearly has evidence of biochemical progression. It is uncertain to what extent he may have associated clinical progression. His CT scan showed resolution of metastatic lymphadenopathy, but there was persistent metastatic bone involvment by CT and bone scan. He was seen for a follow-up visit on 11/03/2020 and at that point he preferred to continue his same treatment, as he was not overtly symptomatic. He has since then developed new pain in the left hip radiating down the left leg. He has had some decline in his energy/activity tolerance and his appetite. He also complains of being a little more short of breath. His likely that at least some of these symptoms are associated with progression of the prostate cancer, particularly the hip/leg pain. He will have repeat laboratory studies today to include CBC, comprehensive metabolic profile, PSA level, and testosterone level. With his disease progression, I am also going to repeat a next generation sequencing study by liquid biopsy. If there is any further increase in the PSA, he will stop the enzalutamide. I discussed other options for his further treatment. If he is having symptoms associated with the metastatic bone involvement, one option would be treatment with radium 223, but he is aware that that would not treat any other metastatic disease and that it would be primarily for symptom management. External beam radiation to the site of symptomatic bone disease would also be an option. Beyond that, I think the best choice is to proceed with a trial of systemic therapy with docetaxel/prednisone, but we will make that determination when the lab results are available. Signed By: Trung Lopez M.D. <<Signature on File>>
[2020-11-16 10:41] LABS: Basophils % 0.6 %; Eosinophils # 0.3 10^3/uL (0.0-0.8); Eosinophils % 4.8 %; Hematocrit 39.5 % (42.0-52.0); Hemoglobin 12.3 g/dL (11.7-16.6); Lymphocytes # 0.9 10^3/uL (0.8-4.8); Lymphocytes % 13.5 %; Mean Corpuscular HGB Conc 31.1 g/dL (30.0-36.0); Mean Corpuscular Hemoglobin 28.5 pg (28.0-34.0); Mean Corpuscular Volume 91.4 fl (80-94); Mean Platelet Volume 11.4 fL (7.4-10.4); Monocytes # 0.6 10^3/uL (0.2-0.9); Monocytes % 8.8 %; Neutrophils # 4.36 10^3/uL (1.8-7.7); Neutrophils % 67.6 %; Nucleated Red Blood Cells % 0 %; Platelet Count 148 10^3/cmm (130-400); Red Blood Count 4.32 10^6/uL (4.1-5.3); Red Cell Distribution Width 14.8 % (12.1-15.1); White Blood Count 6.5 10^3/uL (4.0-10.0)
[2020-11-16 11:05] LABS: Testosterone Total 9.4 ng/dL (193-740)
[2020-11-16 11:18] LABS: Alanine Aminotransferase 12 U/L (0-41); Albumin Level 4.1 g/dL (3.5-5.2); Alkaline Phosphatase 80 IU/L (40-130); Anion Gap 15.2 (5-19); Aspartate Amino Transferase 37 U/L (0-40); Blood Urea Nitrogen 13 mg/dL (8-23); Calcium 8.7 mg/dL (8.5-10.5); Carbon Dioxide 27 mmol/L (22-29); Chloride 99 mmol/L (98-107); Globulin 2.6 g/dL (1.3-4.6); Glucose 98 mg/dL (65-115); Osmolality Calculated 284 mOsm/kg (285-295); Potassium 4.2 mmol/L (3.5-5.1); Sodium 137 mmol/L (136-145); Total Bilirubin 0.3 mg/dL (0.15-1.2); Total Protein 6.7 g/dL (6.6-8.7)
== END 2020-11-16 09:09 | disposition home or self-care (01) ==
PROVIDERS: PCP Family Medicine; Visit Provider Internal Medicine Medical Oncology
DX: C61 Malignant neoplasm of prostate (principal); C79.51 Secondary malignant neoplasm of bone; Z79.899 Other long term (current) drug therapy; Z79.811 Long term (current) use of aromatase inhibitors; J44.9 Chronic obstructive pulmonary disease, unspecified; I10 Essential (primary) hypertension; F41.9 Anxiety disorder, unspecified; F32.A Depression, unspecified
CPT/HCPCS: 36415; 80053; 84153; 84403; 85025; 99214

== ENCOUNTER → 2020-11-23 09:15 | Outpatient (BNVA) | payer MEDICARE, SELFPAY | PROVIDERS: PCP Family Medicine; Visit Provider Thoracic Surgery (Cardiothoracic Vascular Surgery) | DX: Z20.822 Contact with and (suspected) exposure to COVID-19 (principal); C61 Malignant neoplasm of prostate; C79.51 Secondary malignant neoplasm of bone | CPT/HCPCS: 87635 ==

== ENCOUNTER 2020-11-28 06:41 | Day surgery (SDC) | payer MEDICARE, SELFPAY ==
[2020-11-23 09:51] VITALS: BMI 22.4
--- NOTE | 2020-11-23 09:55 | ECG_ITS ---
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 Measurements Intervals [place] Rate: 74 P: 81 TX: 169 QRS: 82 QRSD: 111 T: 68 QT: 386 QTc: 429 Interpretive Statements SINUS RHYTHM MODERATE INTRAVENTRICULAR CONDUCTION DELAY [110+ ms QRS DURATION] MINIMAL ST DEPRESSION [0.025+ mV ST DEPRESSION] Compared to ECG 03/08/2020 23:33:00 Intraventricular conduction delay now present ST (T wave) deviation now present Myocardial infarct finding no longer present T-wave abnormality no longer present Possible ischemia no longer present Electronically Signed On 11-23-2020 20:09:54 CDT by Deborah Valencia M.D. [email or web address]
--- NOTE | 2020-11-23 10:27 | ANES.PREANE2 ---
Pre-Anesthetic Assessment Pre-Anesthetic Assessment: Height/Weight: Height 1.91 m Weight 81.193 kg Preop Diagnosis: Prostate cancer Proposed Procedure: Operation Date: 11/28/20 08:25 Proposed Procedures p Portacath Insertion(Not Applicable) - Cali Palacios MD Familial anesthetic complications: None Social: Social History: No alcohol and No tobacco Exam: Pre-Anes Outpt Exam: alert, oriented x 3, clear to auscultation bilaterally and regular rate & rhythm Airway: Cervical ROM: WNL MP: 1 Dentition: Chipped (front) Pulmonary: Pulmonary: COPD (moderate - 2 L NC prn during activity or while reading at night) CV/HEM: CV/HEM: HTN Metabolic: Metabolic: DM (denies DM - states was due to prednisone) Musc/skel: Comments: bone mets Anesthetic Plan: ASA status: 4 Anesthesia: MAC Risk of > 500 ml blood loss (7ml/kg in children): No PFSH Anesthesia PFSH: Medical History Anxiety COPD (chronic obstructive pulmonary disease) Surgical History H/O eye surgery Family History Mother , in her 60's Asthma Father , at age 83 Prostate cancer Social History Smoking and tobacco status: former smoker Quit status (tobacco): has quit using tobacco Year quit tobacco: 2013 [id number] Second hand smoke exposure: No Smoking risk assessment/counseling performed?: Yes Alcohol intake: current Lives independently: Yes Household members: spouse Housing: House Marital status: significant other service: No Current occupational status: retired Pets and animals: No History of recent travel: No Current gender identity: Male Data Anesthesia Cardiac Studies: No Data to Display
[2020-11-23 10:32] LABS: Add Urine Microscopic? NO; Charge for UA Resulting for Rev
[2020-11-23 10:44] LABS: Basophils # 0.1 10^3/uL (0.0-0.1); Basophils % 0.9 %; Eosinophils # 0.2 10^3/uL (0.0-0.8); Eosinophils % 3.9 %; Hematocrit 39.7 % (42.0-52.0); Hemoglobin 12.3 g/dL (11.7-16.6); Lymphocytes # 0.9 10^3/uL (0.8-4.8); Mean Corpuscular Hemoglobin 27.8 pg (28.0-34.0); Mean Corpuscular Volume 89.8 fl (80-94); Mean Platelet Volume 10.8 fL (7.4-10.4); Monocytes # 0.5 10^3/uL (0.2-0.9); Monocytes % 8.1 %; Neutrophils # 3.76 10^3/uL (1.8-7.7); Neutrophils % 65.8 %; Nucleated Red Blood Cells % 0 %; Platelet Count 168 10^3/cmm (130-400); Red Blood Count 4.42 10^6/uL (4.1-5.3); Red Cell Distribution Width 14.5 % (12.1-15.1); White Blood Count 5.7 10^3/uL (4.0-10.0)
[2020-11-23 10:52] LABS: Bilirubin Urine Neg (Negative); Blood Urine Neg (Negative); Glucose Urine UA Norm (Normal); Ketones Urine Negative (Negative); Leukocyte Esterase Urine Negative (Negative); Nitrate Urine Negative (Negative); Protein Urine Neg (Negative); Specific Gravity, Urine 1.015 (1.005-1.030); Urine Appearance Clear (CLEAR); Urine Color Yellow (Yellow); Urobilinogen Urine Norm (Negative); pH Urine 5 (5-7)
[2020-11-23 11:10] LABS: Slide Review Slide Review Perform
[2020-11-23 11:17] LABS: Blood Urea Nitrogen 12 mg/dL (8-23); Calcium 8.8 mg/dL (8.5-10.5); Carbon Dioxide 30 mmol/L (22-29); Chloride 96 mmol/L (98-107); Glucose 100 mg/dL (65-115); Osmolality Calculated 278 mOsm/kg (285-295); Sodium 134 mmol/L (136-145)
[2020-11-28] VITALS (7 sets, daily range): BP systolic 91–111; BP diastolic 68–80; PULSE 75–85; RESP 16–17; TEMP 36.1–36.3; O2SAT 93–95
--- NOTE | 2020-11-28 | SCC_ITS ---
Procedure Done: Left subclavian Port-A-Cath placement 12.9 seconds of fluoroscopic guidance, for a cumulative dose of 1.48 mGy, was provided to Dr. Palacios by the radiology department. C-arm images of the chest were saved for the patient's permanent record. HALEY
--- NOTE | 2020-11-28 07:16 | SC_ITS ---
WS: [id number] INTRAOPERATIVE TECHNIQUE: 2 Spot fluoroscopic images for intraoperative purposes. FLUOROSCOPY TIME: 12.9 seconds CLINICAL INFORMATION: Port-A-Cath placement COMPARISON: None. FINDINGS: Central venous catheter tip visualized in distal SVC. SC/C-arm FL for CVA [id number] IMPRESSION: Images obtained for intraoperative purposes.
[2020-11-28] MEDS: sodium chloride 0.9% 1,000 ML 30 ML IV (07:37)
--- NOTE | 2020-11-28 07:57 | W.PM.OPSUD ---
Surgery/Procedure H&P Update DATE OF PROCEDURE: November 28, 2020 DATE H&P PERFORMED: 11/16/20 H&P UPDATE INFORMATION: I have reviewed H&P completed within last 30 days, I have examined patient prior to procedure and No changes to prior documentation PREOP DIAGNOSIS: Prostate carcinoma/poor vascular access PLANNED PROCEDURE: Operation Date: 11/28/20 08:25 Proposed Procedures p Portacath Insertion(Not Applicable) - Cali Palacios MD
--- NOTE | 2020-11-28 08:03 | P.ANESUD_ITS ---
Pre-Anesthetic Update Pre-Anesthetic Assessment: Date of Surgery/Procedure: 11/28/20 Preop Ara gnosis: Prostate carcinoma/poor vascular access Proposed Procedure: Operation Date: 11/28/20 08:25 Proposed Procedures p Portacath Insertion(Not Applicable) - Cali Palacios MD Any changes to Pre-Anesthetic Assessment?: No Last Intake: Intake Last Liquid Date 11/27/20 Last Liquid Time 18:00 Last Solid Date 11/27/20 Last Solid Time 18:00 Vitals: Temperature 97.3 F L 11/28/20 07:25 Temperature Source Temporal Artery S can 11/28/20 07:25 Pulse Rate 80 11/28/20 07:25 Pulse Rhythm 11/28/20 07:29 Respiratory Rate 16 11/28/20 07:25 Blood Pressure 111/80 11/28/20 07:25 Blood Pressure Radha n 90 11/28/20 07:25 Pulse Oximetry 93 11/28/20 07:25 Oxygen Delivery Me thod 11/28/20 07:29 Exam: Pre-Anes Outpt Exam: alert, oriented x 3, clear to auscultation bilaterally and regular rate & rhythm Cardiac Studies: No Data to Display
[2020-11-28] MEDS: ceFAZolin 1,000 mg SDV 1000 MG IRRIGATION (08:47)
[2020-11-28] MEDS: heparin, porcine 1,000 unit/mL INJ 10 mL 10000 UNIT IRRIGATION (08:47)
[2020-11-28] MEDS: lidocaine 1% INJ 20 mL INJECTION (08:47)
--- NOTE | 2020-11-28 09:22 | XRR_ITS ---
PROCEDURE INFORMATION: Exam: XR Chest Exam date and time: 11/28/2020 9:22 AM Age: 70 years old Clinical indication: Other vascular access device placement or adjustment; Port; Additional info: Portacath placement TECHNIQUE: Imaging protocol: XR of the chest. Views: 1 view. COMPARISON: CT chest abd pel w con* 10/31/2020 10:07 AM FINDINGS: Tubes, catheters and devices: Left subclavian approach MediPort is in satisfactory position, with distal tip at the level of the SVC/RA junction. Lungs: The lungs are somewhat hyperinflated with increased interstitial markings, likely representing COPD. No evidence of focal consolidation to suggest pneumonia. There is a streaky opacity in the right upper lobe, corresponding to that seen on previous CT chest. Pleural spaces: Unremarkable. No pleural effusion. No pneumothorax. Heart/Mediastinum: Stable cardiomediastinal silhouette. Bones/joints: Unremarkable. XR/XR chest 1V portable [id number] IMPRESSION: 1. Left MediPort in satisfactory position. No pneumothorax. 2. No evidence of focal consolidation. COPD changes. Radiation Dose CTDIVOL = (mGy): DLP = (mGy-cm)
--- NOTE | 2020-11-28 09:35 | PM.OP ---
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 Lopez. In preparation for continued therapies including chemotherapy, Port-A-Cath placement was requested. Rationale was carefully discussed with Dr. Lopez. Proper consents have been reviewed and signed. Procedure: Details and risks of the procedure were carefully and frankly reviewed. Appropriate consents were provided for review and signature. Dr. Lopez was taken to the operating room and placed on the OR table in supine position. Appropriate sedation and relaxation were provided by our anesthesia colleagues. The patient's entire upper chest and neck was sterilely prepped and draped. 1% lidocaine was infiltrated for local anesthesia. The patient was then placed in Trendelenburg position. Utilizing modified Seldinger technique, the left subclavian vein was engaged with needle and aspirated blood. A guidewire was then placed into position. Position was confirmed by fluoroscopy. Needle was withdrawn. The patient was then placed in the supine position. A #15 scalpel blade was used to incise the skin at the exit point from the guidewire and continued laterally and inferiorly. Utilizing cautery for meticulous hemostasis, a subcutaneous pocket was then created to allow for placement of the Port-A-Cath reservoir. Antibiotic-soaked sponge was then placed in the subcutaneous pocket. Port-A-Cath tubing was measured to the appropriate length and then cut. It was then connected to the Port-A-Cath reservoir, secured, and the entire system was flushed with heparin solution. The dilator, followed by tear-a-way sheath, were placed over the guidewire. The guidewire and dilator were removed intact. The Port-A-Cath vascular tubing was then placed through the sheath, which was then removed. The entire system was interrogated by fluoroscopy throughout the procedure. Grant needle was placed through the Port-A-Cath diaphragm, easily aspirated blood, and flushed with heparin lock solution. The Port-A-Cath reservoir was then secured to the floor of the subcutaneous pocket with suture. The pocket was then carefully irrigated with antibiotic solution. Hemostasis was confirmed. The wound was then closed in 2 layers of 3-0 Vicryl suture subcutaneously. The skin was reapproximated carefully in a subcuticular manner with 4-0 Monocryl suture. A sterile dressing was applied followed by a compressive dressing. At the completion of the procedure there are equal breath sounds bilaterally. Vital signs remained stable. The patient was then transported to PACU. Chest x-ray revealed appropriate catheter placement without evidence for pneumothorax. I counseled with his at the completion of the procedure.
[2020-11-28 10:50] LABS: Basophils # 0.1 10^3/uL (0.0-0.1); Basophils % 0.9 %; Eosinophils # 0.3 10^3/uL (0.0-0.8); Eosinophils % 4.6 %; Hemoglobin 11.3 g/dL (11.7-16.6); Lymphocytes % 14.2 %; Mean Corpuscular HGB Conc 31.4 g/dL (30.0-36.0); Mean Corpuscular Hemoglobin 28.8 pg (28.0-34.0); Mean Corpuscular Volume 91.8 fl (80-94); Mean Platelet Volume 11.6 fL (7.4-10.4); Monocytes # 0.5 10^3/uL (0.2-0.9); Monocytes % 7.9 %; Neutrophils # 4.53 10^3/uL (1.8-7.7); Neutrophils % 68.1 %; Nucleated Red Blood Cells % 0 %; Platelet Count 142 10^3/cmm (130-400); Red Blood Count 3.92 10^6/uL (4.1-5.3); Red Cell Distribution Width 14.6 % (12.1-15.1); White Blood Count 6.7 10^3/uL (4.0-10.0)
[2020-11-28 11:13] LABS: Albumin Level 3.9 g/dL (3.5-5.2); Alkaline Phosphatase 84 IU/L (40-130); Blood Urea Nitrogen 13 mg/dL (8-23); Calcium 8.3 mg/dL (8.5-10.5); Carbon Dioxide 27 mmol/L (22-29); Chloride 101 mmol/L (98-107); Globulin 2.5 g/dL (1.3-4.6); Glucose 120 mg/dL (65-115); Osmolality Calculated 283 mOsm/kg (285-295); Sodium 136 mmol/L (136-145); Total Bilirubin 0.2 mg/dL (0.15-1.2); Total Protein 6.4 g/dL (6.6-8.7)
[2020-11-28 11:15] LABS: Anion Gap 12.9 (5-19); Aspartate Amino Transferase 44 U/L (0-40); Potassium 4.9 mmol/L (3.5-5.1)
[2020-11-28 11:16] LABS: Alanine Aminotransferase 14 U/L (0-41)
--- NOTE | 2020-11-28 15:45 | ANE.PACU2 ---
Inpatient post-anesthesia follow up: Airway intact: Yes Vital signs: Temperature 97 F Pulse Rate 79 Respiratory Rate 16 Blood Pressure 102/72 Pulse Oximetry 95 Oxygen Delivery Me thod Room Air Oxygen Flow Rate Fraction of Inspir ed Oxygen Hydration adequate: Yes Nausea and vomiting: No Pain level: 2 Mental status: Baseline
== END 2020-11-28 10:26 | disposition home or self-care (01) ==
PROVIDERS: Internal Medicine Medical Oncology; PCP Family Medicine; Visit Provider Thoracic Surgery (Cardiothoracic Vascular Surgery)
PROC: (CPT 36561; principal; 2020-11-28 08:20)
DX: C61 Malignant neoplasm of prostate (principal); J44.9 Chronic obstructive pulmonary disease, unspecified; Z99.81 Dependence on supplemental oxygen; I10 Essential (primary) hypertension; E11.9 Type 2 diabetes mellitus without complications; F41.9 Anxiety disorder, unspecified; Z87.891 Personal history of nicotine dependence
CPT/HCPCS: 36561; 71045; 77001; 80048; 80053; 81003; 84153; 85025; 93005; C1788; J0690; J1100; J1644; J2250; J2405; J2704; J3010; J7030

== ENCOUNTER 2020-11-30 06:39 | Outpatient (CLI) | payer MEDICARE, SELFPAY ==
[2020-11-30] MEDS: famotidine 20 mg/2 mL INJ IVP (10:24)
[2020-11-30] MEDS: diphenhydrAMINE 50 mg/mL SDV 1mL 25 MG IV (10:26)
[2020-11-30] MEDS: palonosetron 0.25 mg/5 mL SDV IV (10:28)
[2020-11-30] MEDS: sodium chloride 0.9% 250 ML 75 ML IV (10:28)
[2020-11-30] MEDS: denosumab 120 mg SDV SUBCUT (11:56)
--- NOTE | 2020-12-15 20:56 | ONC FU_ITS ---
[facility] Patient Note Patient: Bartolo Lopez Unit #: [id number]: [id number] Dictated By: Farrukh PaniaguaDate of Visit: Nov 30, 2020 Onc MED Follow-Up/Prog Note Chief Complaint: Prostate cancer. 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 On 03/08/2020 he was admitted to the hospital with complaints of weakness, back pain, and shortness of breath. The back pain had started in the early part of January. He thought it was just of back sprain, but it had continued to gradually worsen. His evaluation in the emergency room included lumbar spine CT which showed a diffuse mottled sclerotic appearance throughout the skeleton, suspicious for metastatic prostate cancer. Also noted was retroperitoneal and right iliac chain lymphadenopathy. His CT scans of the chest, abdomen, and pelvis also showed diffuse sclerotic changes throughout the skeletal structures. There were changes of severe centrilobular emphysema. There were multiple bilateral pulmonary nodules measuring up to 5 mm, metastatic disease not excluded. Also noted was retrocrural, posterior mediastinal, retroperitoneal, and right external iliac chain lymphadenopathy. The prostate was enlarged measuring 5.1 x 6.0 x 6.5 cm. He was noted to be mildly anemic with hemoglobin 11.0 g. White blood cell count was normal at 5400 but platelet count also was mildly decreased at 83,000. His differential showed 11 nucleated red cells per 100 WBCs. Renal function was normal with BUN 16 and creatinine 0.7 mg/dL. Calcium was normal at 9.5 mg/dL. Alkaline phosphatase was significantly elevated at 877/130 IUs/L. B12 and folate levels were normal. His PSA level was markedly elevated at 1344 ng/mL. During the hospitalization, he developed hypercapnic acute respiratory failure. This was thought to be due to a panic attack. He started treatment with bicalutamide 50 mg daily. He was given burst steroid therapy and empiric antibiotic coverage with Levaquin for his COPD. At discharge he also was started on metformin for steroid related hyperglycemia, and he also started amlodipine and lisinopril for hypertension. He had an outpatient follow-up with Dr. Cosby on 03/16/2020, and at that time he underwent ultrasound-guided biopsy of the prostate. Pathology showed high-grade prostatic adenocarcinoma, Rushville score 10 (5+5). 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 On next generation sequencing, his tumor was noted to be MSI stable. The tumor mutation burden was low. There were no actionable mutations identified. 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 On 03/17/2020 he began androgen deprivation therapy with Zoladex. His antiandrogen therapy was subsequently transitioned to enzalutamide 160 mg daily. During follow-up there was a gradual decline in his PSA level. As of 05/23/2020 it was down to 1.230 ng/mL. His other medical illnesses have been limited to COPD and chronic anxiety. He has a history of smoking 1 pack of cigarettes daily for 25 to 30 years. He quit smoking in 2013. INTERIM HISTORY: He had continued androgen deprivation therapy with Zoladex 10.8 mg every 3 months together with enzalutamide 160 mg daily. As of his follow-up visit on 09/21/2020, he was doing well clinically, but there was an increase in his PSA level to 37.840 ng/mL. With that change, he had a repeat PSA on 10/20/2020, at which point it had further increased to 80.160 ng/mL. Restaging CT scans of the chest, abdomen, and pelvis on 10/31/2020 showed resolution of previously described periaortic and retroperitoneal lymphadenopathy. Numerous noncalcified subcentimeter pulmonary nodules appeared stable. Nodular enlarged heterogeneously enhancing prostate was noted to be slightly improved, measuring 4.6 cm. There was evidence for diffuse bony metastatic disease throughout the visualized bony structures, similar in appearance to the February 2020 study. Some areas did appear to have slightly progressed. Bone scan also showed evidence for diffuse osseous metastatic disease involving the thoracic and lumbar spine, bilateral ribs, sacrum, and both femurs, left greater than right. On 11/03/2020 he was seen to discuss options for his further treatment. At that point he preferred to continue his same ADT, as he was not overtly symptomatic. He also continued denosumab for the metastatic bone involvement. He was seen by Dr. Lopez on November 16, 2020 at which time he was having pain in his left hip that was radiating down the leg. His first concern was that the pain may have been caused by denosumab injection. He also notes that his energy was lower than normal. It was felt that he had evidence of biochemical progression his repeat PSA on November 16, 2020 had elevated to 196.2. He has been advised to stop the enzalutamide and has been advised to pursue treatment with docetaxel every 3 weeks. He will continue the denosumab and Zoladex. His last Zoladex injection was September 21, 2020. His last denosumab injection was October 20, 2020. Dr. Lopez was referred to [place] for second opinion but in the interim has elected to pursue treatment here instead. Dr. Lopez is here today for follow-up and initiation of his first cycle of every 3-week docetaxel. He states overall he is doing about the same. He does not feel that he feels any worse than he did on his November 16, 2020 visit. He continues to have some pain but states he feels that overall it is better than on November 16, 2020. He is accompanied by his , Emerald, today. It is noted that his guardian 360 test report date November 23, 2020 collected on November 16, 2020 reported AR application MSI was not detected. There were no actionable mutations noted. Dr. Lopez had Port-A-Cath placement left subclavian vein November 28, [address] Palacios. His ECOG remains at 1. Past Medical History: Anxiety Chronic obstructive pulmonary disease Past Surgical History: Scleral buckling to both eyes for detached retinas Left subclavian Port-A-Cath placement???Dr. Palacios in 2020 Port-a-cath placement in 2020 - Dr. Palacios Covid vaccine #2 moderna in 2020 Covid vaccine #1 moderna in 2020 Ultrasound-guided needle biopsy of the prostate in 2020 Cataract excision in 2019 Allergies: No Known Allergies. Medications: amLODIPine Besylate 1 (5 mg) Tablet Oral daily Bicalutamide 1 (50 mg) Tablet Oral daily Flomax 1 (0.4 mg) Capsule Oral daily Fluticasone-Salmeterol 1 Puff(s) (of 100-50 mcg/dose) Aerosol Powder, Breath Activated Inhalation b.i.d. Lisinopril 1 (20 mg) Tablet Oral daily LORazepam 1 (0.5 mg) Tablet Oral q 4 hours PRN Sertraline HCl 1 (50 mg) Tablet Oral daily Spiriva Respimat 1 (2.5 mcg/act) Aerosol, solution Inhalation daily Family History: Mr. Lopez's mother at age 65: asthma. Mr. Perezs father at age 83: prostate cancer. Father at age 83 with either prostate cancer or bladder cancer. He is not certain. Mother with asthma at age 65. He had no siblings. Social History: Mr. Lopez is . Mr. Lopez no longer smokes. He drinks occasionally. He consumes 2 days/week. 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 He has a history of smoking 1 pack of cigarettes daily for 25 to 30 years. He quit smoking in 2013. He has just occasional alcohol use. Review Of Symptoms: <See Above> Vital Signs: Performed on Nov 30, 2020 08:43 Height - 75.00 in Weight - 176.6 lbs (LOW) BSA - 2.08 sq.m BMI - 22.07 Temperature - 97.3 F (LOW) Pulse - 98 /min Respiration - 18 /min BP - 159/98 mm(hg) (HIGH) O2 Sat - 92 % (LOW) Pain - 0 Fatigue - 1,1 - No physically strenuous activity, but ambulatory and able to carry out light or sedentary work (e.g. office work, light house work). (ECOG) Physical Examination: Constitutional Alert, oriented, no acute distress. Skin pink, warm and dry. Head Normocephalic; atraumatic. Eyes Conjunctivae and sclerae are clear and without icterus. Pupils are reactive and equal. Respiratory Lungs are clear to auscultation without rhonchi or wheezing. Cardiovascular Regular rate and rhythm of heart without murmurs,clicks, gallops or rubs. Abdomen Non-tender, non-distended, no masses or ascites. Good bowel sounds noted in all quads. No guarding or rebound tenderness. No pulsatile masses. Back/Spine Non-tender to palpation. Extremities No visible deformities, no cyanosis, clubbing or edema. Musculoskeletal No tenderness or swelling, normal range of motion without obvious weakness. Integumentary No rashes or lesions. Neurologic No sensory or motor deficits, normal cerebellar function, normal gait. Psychiatric Alert and oriented times three. Coherent speech. Verbalizes understanding of our discussions today. Laboratory:Test performed on Nov 28, 2020 13:39 Glucose 120 mg/dL BUN 13 mg/dL Creatinine 0.7 mg/dL Cr Clearance (Est) 109.67 mL/min Sodium 136 mmol/L Potassium 4.9 mmol/L Chloride 101 mmol/L CO2 27 mmol/L Calcium 8.3 mg/dL Protein, Total 6.4 g/dL Albumin 3.9 g/dL Globulin 2.5 g/dL Bilirubin, Total 0.2 mg/dL Alkaline Phosphatase 84 International Units/L AST (SGOT) 44 International Units/L ALT (SGPT) 14 International Units/L PSA 263.3 ng/mL Test performed on Nov 16, 2020 10:00 Testosterone, Total 9.4 ng/dL Anion Gap 15.2 Osmolality - Calculated 284 mOsm/kg WBC 6.5 10 3/uL RBC 4.32 10 6/uL HGB 12.3 g/dL HCT 39.5 % MCV 91.4 fl MCH 28.5 pg MCHC 31.1 g/dL RDW 14.8 % Platelet Count 148 10 3/cmm MPV 11.4 fL Neutrophils 4.36 10 3/uL Lymphocytes 0.9 10 3/uL Monocytes 0.6 10 3/uL Eosinophils 0.3 10 3/uL Basophils 0.0 10 3/uL Neutrophil % 67.6 % Lymphocyte % 13.5 % Monocyte % 8.8 % Eosinophil % 4.8 % Basophils % 0.6 % NRBC % 0 % Impression: 1. High-grade prostatic adenocarcinoma, Bernarda score 10 (5+5), stage IVB with CT evidence of multiple sites of metastatic involvement. 2. COPD. 3. Hypertension. 4. Anxiety/depression. Plan/Problems Addressed at this Visit: A. High-grade prostatic adenocarcinoma, Rushville score 10 (5+5), stage IVB. At presentation he had CT evidence of widespread sclerotic bony metastatic disease, multiple bilateral pulmonary nodules, and mediastinal, retrocrural, retroperitoneal, and right external iliac lymphadenopathy in association with markedly elevated PSA level. In addition, his CBC and blood smear findings were consistent with bone marrow involvement. He began antiandrogen therapy with bicalutamide 50 mg daily. On 03/17/2020 he started androgen deprivation therapy with Zoladex 10.8 mg. His antiandrogen was subsequently transitioned to enzalutamide 160 mg daily. He had a good response to the treatment by PSA level. As of 05/23/2020 it was down to 1.230 ng/mL. However, as of his 09/21/2020 visit it had increased significantly, to 37.840 ng/mL, and by 10/20/2020 it had further increased to 80.160 ng/mL. He has had evidence of biochemical progression. It is uncertain to what extent he may have associated clinical progression. His CT scan showed resolution of metastatic lymphadenopathy, but there was persistent metastatic bone involvement by CT and bone scan. He was seen for a follow-up visit on 11/03/2020 and at that point he preferred to continue his same treatment, as he was not overtly symptomatic. He has since then developed new pain in the left hip radiating down the left leg. He has had some decline in his energy/activity tolerance and his appetite. He also complains of being a little more short of breath. His likely that at least some of these symptoms are associated with progression of the prostate cancer, particularly the hip/leg pain. He had repeat laboratory studies on 11/16/2020 His CBC was unremarkable and his chemistry was unremarkable but his PSA had elevated further to 196.2. His PSA as of November 28, 2020 had further increased to 263.3. He has been advised to stop the enzalutamide but will continue Zoladex and denosumab. His new treatment regimen has been recommended to proceed with docetaxel/Prednisone every 3 weeks. He is here today begin his first cycle. 1. Proceed with cycle 1 day 1 docetaxel 75 mg per metered squared as an every 3-week dosing plan. 2. Steroid premed compliance confirmed. 3. and this is for CAD been advised that he is not to take prednisone the day before,the day of treatment nor the day after. He will start his prednisone 5 mg daily on Saturday of this week. We will continue this plan with his future cycles as well. 4. Labs from November 28, 2020 reviewed in detail and discussed with & Gokul John and a copy was given to them. He did not have a repeat CBC but did have a creatinine of 0.7 random glucose was 120 and LFTs were normal. As stated above, his repeat PSA at that time was 263.3. His weight is stable today 176.6. 5. We did discuss potential side effects of the docetaxel infusion approximately 30% chance of infusion reaction/allergic reaction/anaphylaxis to the docetaxel. We also discussed anemia, thrombocytopenia and neutropenia as well as nausea vomiting, diarrhea or constipation. We also discussed potential hair loss. We discussed neuropathy at length and he is encouraged to let us know he has having any problems. We discussed worsening of his fatigue, changes in appetite as well as potential rash, mouth sores, risk of infection due to low blood counts amongst many others. The Sushil have no questions at this time we will proceed with treatment. 6. We will proceed with weekly CBC/CMP for chemo monitoring. He may have his weekly interim counts [facility] at the [facility]. 7. We will plan to see him back in 3 weeks for cycle 2 docetaxel with CBC CMP and PSA. If his PSA is not drawn with his blood counts prior to his next cycle, we can draw his PSA when his port is accessed here in the clinic and hopefully have the results by the time he is done with treatment. 8. He was again reminded to take his premed steroids for the docetaxel but to not take prednisone the day for the day of or the day after chemotherapy as he had will be taking premed steroids at that time. B. Metastatic bone involvement 1. Proceed with denosumab 120 mg which is due today. His last dose was on October 20, 2020. He did have for that injection which was felt to be metastatic bone disease but could have been aggravated by the denosumab. He is aware that he may need to take pain medication if that should flare again. 2. If he is having symptoms associated with the metastatic bone involvement, one option would be treatment with radium 223, but he is aware that that would not treat any other metastatic disease and that it would be primarily for symptom management. External beam radiation to the site of symptomatic bone disease would also be an option. The patient and family were informed of chemotherapy plan and specific drugs were discussed. We also discussed how chemotherapy works and identified common side effects including alopecia; myelosuppression-including neutropenia, anemia, bleeding or bruising; skin changes; mouth sores; drug hypersensitivity/allergic reactions or anaphylaxis and extravasation. They have also been informed how to contact the clinic with side effects or symptoms, including but not limited to fever greater than 100.4 degrees, chills, sore throat, bleeding or bruising that is not explained or mouth sores, cough, nasal discharge, diarrhea, constipation, nausea and/or vomiting not relieved with medications on hand at home, as well as any other concern or question they may have. Our hours are 8:00 a.m. to 4:30 p.m. on Saturday through and 8-12:00 on Saturday. 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 We have also discussed potential long-term side effects of chemotherapy including secondary cancers, infertility, pulmonary complications, cardiac complications, and again peripheral neuropathy. We have discussed that they certainly need to let us know before taking any antioxidants or herbal or further dietary supplements, as we are unsure of how these agents react with chemotherapy and we request that they avoid these products for now. They were informed that it is okay to take multivitamins at normal doses. They verbally state that they understand to take all medications as directed by their healthcare provider unless otherwise indicated. They also verbalized understanding to leave the pressure dressing on the intravenous administration site for at least two hours after treatment. Instructions for oral care with baking soda and salt water rinses as well as a guide for use of [id number] medication were provided with the treatment plan. They have been given a written patient treatment plan, of which a copy is in the chart, as well as specific drug information. They have no questions and verbalized understanding and are willing to proceed with chemotherapy at this time. The majority of this visit was spent in face to face communication (60 minutes) with this patient and/or his/her family in regards to plan of care, side effect identification and management. Signed By: Farrukh Paniagua_, AOCNP Trung Lopez MD <<Signature on File>>
== END 2020-11-30 06:40 | disposition home or self-care (01) ==
PROVIDERS: PCP Family Medicine; Visit Provider Internal Medicine Medical Oncology
DX: Z51.11 Encounter for antineoplastic chemotherapy (principal); C61 Malignant neoplasm of prostate; C79.51 Secondary malignant neoplasm of bone; C78.01 Secondary malignant neoplasm of right lung; C78.02 Secondary malignant neoplasm of left lung; C77.8 Secondary and unspecified malignant neoplasm of lymph nodes of multiple regions; C79.52 Secondary malignant neoplasm of bone marrow; Z79.818 Long term (current) use of other agents affecting estrogen receptors and estrogen levels
CPT/HCPCS: 96367; 96372; 96375; 96413; 99215; J0897; J1100; J1200; J2469; J3490; J7050; J9171

== ENCOUNTER → 2020-12-07 13:03 | Outpatient (BNVA) | payer MEDICARE, SELFPAY | PROVIDERS: PCP Family Medicine; Visit Provider Internal Medicine Medical Oncology | DX: C61 Malignant neoplasm of prostate (principal); C79.51 Secondary malignant neoplasm of bone | CPT/HCPCS: 80053; 85025 ==

== ENCOUNTER → 2020-12-14 09:37 | Outpatient (BNVA) | payer MEDICARE, SELFPAY | PROVIDERS: PCP Family Medicine; Visit Provider Internal Medicine Medical Oncology | DX: C61 Malignant neoplasm of prostate (principal) | CPT/HCPCS: 80053; 85025 ==

== ENCOUNTER → 2020-12-19 10:00 | Outpatient (BNVA) | payer MEDICARE, SELFPAY | PROVIDERS: PCP Family Medicine; Visit Provider Internal Medicine Medical Oncology | DX: C61 Malignant neoplasm of prostate (principal); C79.51 Secondary malignant neoplasm of bone | CPT/HCPCS: 80053; 85007; 85025 ==

== ENCOUNTER 2020-12-21 08:34 | Outpatient (CLI) | payer MEDICARE, SELFPAY ==
[2020-12-21] MEDS: famotidine 20 mg/2 mL INJ IVP (09:56)
[2020-12-21] MEDS: diphenhydrAMINE 50 mg/mL SDV 1mL 25 MG IV (09:57)
[2020-12-21] MEDS: palonosetron 0.25 mg/5 mL SDV IV (09:58)
[2020-12-21] MEDS: lidocaine 1% INJ 20 mL INJECTION (11:13)
[2020-12-21] MEDS: goserelin acetate 10.8 mg Implant SUBCUT (11:24)
--- NOTE | 2021-01-04 11:40 | ONC FU_ITS ---
[facility] Patient Note Patient: Bartolo Lopez Unit #: [id number]: [id number] Dictated By: Farrukh PaniaguaDate of Visit: Dec 21, 2020 Onc MED Follow-Up/Prog Note Chief Complaint: Prostate cancer. 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 On 03/08/2020 he was admitted to the hospital with complaints of weakness, back pain, and shortness of breath. The back pain had started in the early part of January. He thought it was just of back sprain, but it had continued to gradually worsen. His evaluation in the emergency room included lumbar spine CT which showed a diffuse mottled sclerotic appearance throughout the skeleton, suspicious for metastatic prostate cancer. Also noted was retroperitoneal and right iliac chain lymphadenopathy. His CT scans of the chest, abdomen, and pelvis also showed diffuse sclerotic changes throughout the skeletal structures. There were changes of severe centrilobular emphysema. There were multiple bilateral pulmonary nodules measuring up to 5 mm, metastatic disease not excluded. Also noted was retrocrural, posterior mediastinal, retroperitoneal, and right external iliac chain lymphadenopathy. The prostate was enlarged measuring 5.1 x 6.0 x 6.5 cm. He was noted to be mildly anemic with hemoglobin 11.0 g. White blood cell count was normal at 5400 but platelet count also was mildly decreased at 83,000. His differential showed 11 nucleated red cells per 100 WBCs. Renal function was normal with BUN 16 and creatinine 0.7 mg/dL. Calcium was normal at 9.5 mg/dL. Alkaline phosphatase was significantly elevated at 877/130 IUs/L. B12 and folate levels were normal. His PSA level was markedly elevated at 1344 ng/mL. During the hospitalization, he developed hypercapnic acute respiratory failure. This was thought to be due to a panic attack. He started treatment with bicalutamide 50 mg daily. He was given burst steroid therapy and empiric antibiotic coverage with Levaquin for his COPD. At discharge he also was started on metformin for steroid related hyperglycemia, and he also started amlodipine and lisinopril for hypertension. He had an outpatient follow-up with Dr. Cosby on 03/16/2020, and at that time he underwent ultrasound-guided biopsy of the prostate. Pathology showed high-grade prostatic adenocarcinoma, [place] score 10 (5+5). 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 On next generation sequencing, his tumor was noted to be MSI stable. The tumor mutation burden was low. There were no actionable mutations identified. 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 On 03/17/2020 he began androgen deprivation therapy with Zoladex. His antiandrogen therapy was subsequently transitioned to enzalutamide 160 mg daily. During follow-up there was a gradual decline in his PSA level. As of 05/23/2020 it was down to 1.230 ng/mL. His other medical illnesses have been limited to COPD and chronic anxiety. He has a history of smoking 1 pack of cigarettes daily for 25 to 30 years. He quit smoking in 2013. INTERIM HISTORY: He had continued androgen deprivation therapy with Zoladex 10.8 mg every 3 months together with enzalutamide 160 mg daily. As of his follow-up visit on 09/21/2020, he was doing well clinically, but there was an increase in his PSA level to 37.840 ng/mL. With that change, he had a repeat PSA on 10/20/2020, at which point it had further increased to 80.160 ng/mL. Restaging CT scans of the chest, abdomen, and pelvis on 10/31/2020 showed resolution of previously described periaortic and retroperitoneal lymphadenopathy. Numerous noncalcified subcentimeter pulmonary nodules appeared stable. Nodular enlarged heterogeneously enhancing prostate was noted to be slightly improved, measuring 4.6 cm. There was evidence for diffuse bony metastatic disease throughout the visualized bony structures, similar in appearance to the February 2020 study. Some areas did appear to have slightly progressed. Bone scan also showed evidence for diffuse osseous metastatic disease involving the thoracic and lumbar spine, bilateral ribs, sacrum, and both femurs, left greater than right. On 11/03/2020 he was seen to discuss options for his further treatment. At that point he preferred to continue his same ADT, as he was not overtly symptomatic. He also continued denosumab for the metastatic bone involvement. He was seen by Dr. Lopez on November 16, 2020 at which time he was having pain in his left hip that was radiating down the leg. His first concern was that the pain may have been caused by denosumab injection. He also notes that his energy was lower than normal. It was felt that he had evidence of biochemical progression his repeat PSA on November 16, 2020 had elevated to 196.2. He has been advised to stop the enzalutamide and has been advised to pursue treatment with docetaxel every 3 weeks. It is noted that his guardian 360 test report date November 23, 2020 collected on November 16, 2020 reported AR application MSI was not detected. There were no actionable mutations noted. Dr. Lopez had Port-A-Cath placement left subclavian vein November 28, [address] Lopez was referred to [place] for second opinion but in the interim has elected to pursue treatment here instead. He began initiation of his treatment with docetaxel on 11/30/2020. He is also undergoing treatment with denosumab and his last dose was on 11/30/2020. His last Zoladex was September 21, 2020. Dr. Lopez is here today for follow-up and his second cycle of every 3-week docetaxel. He states overall he is doing about the same. He denies any new pain. He states he continues to have bone pain in the left femur and left tibia but it is unchanged. It does require pain medication once in a while. He denies any fever or chills. He states his energy may be some better but not dramatic. He denies any mouth sores, sore throat or difficulty swallowing. He denies any neuropathy symptoms. He states his appetite is fair. He denies any new shortness of breath orthopnea. He denies any cough or hemoptysis. He denies any chest pain, palpitations or orthopnea. He denies any lower extremity edema. He denies any bowel or bladder issues. He states overall he is feeling pretty good in general. 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 Palacios in 2020 Port-a-cath placement in 2020 - Dr. Palacios Covid vaccine #2 moderna in 2020 Covid vaccine #1 moderna in 2020 Ultrasound-guided needle biopsy of the prostate in 2020 Cataract excision in 2019 Allergies: No Known Allergies. Medications: amLODIPine Besylate 1 (5 mg) Tablet Oral daily Bicalutamide 1 (50 mg) Tablet Oral daily Flomax 1 (0.4 mg) Capsule Oral daily Fluticasone-Salmeterol 1 Puff(s) (of 100-50 mcg/dose) Aerosol Powder, Breath Activated Inhalation b.i.d. Lisinopril 1 (20 mg) Tablet Oral daily LORazepam 1 (0.5 mg) Tablet Oral q 4 hours PRN Sertraline HCl 1 (50 mg) Tablet Oral daily Spiriva Respimat 1 (2.5 mcg/act) Aerosol, solution Inhalation daily Family History: Mr. Lopez's mother at age 65: asthma. Mr. Lopez's father at age 83: prostate cancer. Father at age 83 with either prostate cancer or bladder cancer. He is not certain. Mother with asthma at age 65. He had no siblings. Social History: Mr. Lopez is . Mr. Lopez no longer smokes. He drinks occasionally. He consumes 2 days/week. 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 He has a history of smoking 1 pack of cigarettes daily for 25 to 30 years. He quit smoking in 2013. He has just occasional alcohol use. Review Of Symptoms: <See Above> Vital Signs: Performed on Dec 21, 2020 08:54 Height - 75.00 in Weight - 179 lbs (HIGH) BSA - 2.09 sq.m BMI - 22.37 Temperature - 97.1 F (LOW) Pulse - 98 /min Respiration - 20 /min BP - 163/96 mm(hg) (HIGH) O2 Sat - 98 % Pain - 0 Fatigue - 2,1 - No physically strenuous activity, but ambulatory and able to carry out light or sedentary work (e.g. office work, light house work). (ECOG) Physical Examination: Constitutional Alert, oriented, no acute distress. Skin pink, warm and dry. Head Normocephalic; atraumatic. Eyes Conjunctivae and sclerae are clear and without icterus. Pupils are reactive and equal. Respiratory Lungs are clear to auscultation without rhonchi or wheezing. Cardiovascular Regular rate and rhythm of heart without murmurs,clicks, gallops or rubs. Abdomen Non-tender, non-distended, no masses or ascites. Good bowel sounds noted in all quads. No guarding or rebound tenderness. No pulsatile masses. Back/Spine Non-tender to palpation. Extremities No visible deformities, no cyanosis, clubbing or edema. Musculoskeletal No tenderness or swelling, normal range of motion without obvious weakness. Integumentary No rashes or lesions. Neurologic No sensory or motor deficits, normal cerebellar function, normal gait. Psychiatric Alert and oriented times three. Coherent speech. Verbalizes understanding of our discussions today. Laboratory:Test performed on Dec 19, 2020 10:00 Glucose 103 mg/dL BUN 9 mg/dL Creatinine 0.7 mg/dL Cr Clearance (Est) 108.08 mL/min Sodium 138 mmol/L Potassium 4.1 mmol/L Chloride 97 mmol/L CO2 24 mmol/L Calcium 8.6 mg/dL Protein, Total 6.5 g/dL Albumin 4.2 g/dL Globulin 2.3 g/dL Bilirubin, Total 0.3 mg/dL Alkaline Phosphatase 130 International Units/L AST (SGOT) 58 International Units/L ALT (SGPT) 21 International Units/L WBC 8.5 10^9/L RBC 4.16 10^12/L HGB 11.5 g/dL HCT 38.0 % MCV 91.3 fl MCH 27.6 pg MCHC 30.3 g/dL RDW 15.6 % Platelet Count 109 10^9/L MPV 12.8 fL Neutrophils (Gran) 6.0 10^9/L Lymphocytes 1.445 10^9/L Monocytes 0.51 10^9/L Eosinophils 0.17 10^9/L Basophils 0.085 10^9/L Test performed on Nov 28, 2020 13:39 PSA 263.3 ng/mL Test performed on Nov 16, 2020 10:00 Testosterone, Total 9.4 ng/dL Anion Gap 15.2 Osmolality - Calculated 284 mOsm/kg Neutrophil % 67.6 % Lymphocyte % 13.5 % Monocyte % 8.8 % Eosinophil % 4.8 % Basophils % 0.6 % NRBC % 0 % Impression: 1. High-grade prostatic adenocarcinoma, [place] score 10 (5+5), stage IVB with CT evidence of multiple sites of metastatic involvement. 2. COPD. 3. Hypertension. 4. Anxiety/depression. Plan/Problems Addressed at this Visit: A. High-grade prostatic adenocarcinoma, [place] score 10 (5+5), stage IVB. At presentation he had CT evidence of widespread sclerotic bony metastatic disease, multiple bilateral pulmonary nodules, and mediastinal, retrocrural, retroperitoneal, and right external iliac lymphadenopathy in association with markedly elevated PSA level. In addition, his CBC and blood smear findings were consistent with bone marrow involvement. He began antiandrogen therapy with bicalutamide 50 mg daily. On 03/17/2020 he started androgen deprivation therapy with Zoladex 10.8 mg. His antiandrogen was subsequently transitioned to enzalutamide 160 mg daily. He had a good response to the treatment by PSA level. As of 05/23/2020 it was down to 1.230 ng/mL. However, as of his 09/21/2020 visit it had increased significantly, to 37.840 ng/mL, and by 10/20/2020 it had further increased to 80.160 ng/mL. He has had evidence of biochemical progression. It is uncertain to what extent he may have associated clinical progression. His CT scan showed resolution of metastatic lymphadenopathy, but there was persistent metastatic bone involvement by CT and bone scan. He was seen for a follow-up visit on 11/03/2020 and at that point he preferred to continue his same treatment, as he was not overtly symptomatic. He has since then developed new pain in the left hip radiating down the left leg. He has had some decline in his energy/activity tolerance and his appetite. He also complains of being a little more short of breath. His likely that at least some of these symptoms are associated with progression of the prostate cancer, particularly the hip/leg pain. He had repeat laboratory studies on 11/16/2020 His CBC was unremarkable and his chemistry was unremarkable but his PSA had elevated further to 196.2. His PSA as of November 28, 2020 had further increased to 263.3. He has been advised to stop the enzalutamide but will continue Zoladex and denosumab. His new treatment regimen has been recommended to proceed with docetaxel/Prednisone every 3 weeks. He began his first dose of docetaxel prednisone on 11/30/2020. His last dose of denosumab was also on 11/30/2020 and his last dose of Zoladex was 11/18/2020. 1. Proceed with cycle 2 day 1 docetaxel 75 mg per metered squared as an every 3-week dosing plan. 2. Steroid premed compliance confirmed. 3. Dr Lopze been advised that he is not to take prednisone the day before,the day of treatment nor the day after. He will start his prednisone 5 mg daily on Saturday of this week. We will continue this plan with his future cycles as well. 4. Labs from 12/19/2020 were reviewed in detail and discussed with Dr. Lopez and a copy was given to him. WBC is 8.5, hemoglobin 11.5, platelets 109,000, ANC is 6000. Potassium 4.1 creatinine 0.7 glucose 103 LFTs reveal an ALT of 21 AST is 58 and alk phos is 130. his repeat PSA on 11/28/2020 was 263.3. His weight is stable today 179. 5. We will proceed with weekly CBC/CMP for chemo monitoring. He may have his weekly interim counts drawn at the [place] [[email or web address] 6. We will plan to see him back in 3 weeks for cycle 3 docetaxel with CBC CMP and PSA. If his PSA is not drawn with his blood counts prior to his next cycle, we can draw his PSA when his port is accessed here in the clinic and hopefully have the results by the time he is done with treatment. 7. He was again reminded to take his premed steroids for the docetaxel but to not take prednisone the day for the day of or the day after chemotherapy as he had will be taking premed steroids at that time. 8. Dr. Lopez was encouraged to contact us in the interim if questions or problems arise. B. Metastatic bone involvement 1. Proceed with denosumab 120 mg which is NOT due today. His last dose was on 11/30/20. 2. If he is having symptoms associated with the metastatic bone involvement, one option would be treatment with radium 223, but he is aware that that would not treat any other metastatic disease and that it would be primarily for symptom management. External beam radiation to the site of symptomatic bone disease would also be an option. Signed By: Farrukh Paniagua-, AOCNP Trung Lopez MD <<Signature on File>>
== END 2020-12-21 08:35 | disposition home or self-care (01) ==
LOC: ONCMED 08:35
PROVIDERS: PCP Family Medicine; Visit Provider Nurse Practitioner
DX: Z51.11 Encounter for antineoplastic chemotherapy (principal); C61 Malignant neoplasm of prostate; C79.51 Secondary malignant neoplasm of bone; R97.21 Rising PSA following treatment for malignant neoplasm of prostate; Z79.818 Long term (current) use of other agents affecting estrogen receptors and estrogen levels
CPT/HCPCS: 96367; 96372; 96375; 96402; 96413; 99215; J1100; J1200; J2469; J3490; J7050; J9171; J9202

== ENCOUNTER → 2020-12-29 11:41 | Outpatient (BNVA) | payer MEDICARE, SELFPAY | PROVIDERS: PCP Family Medicine; Visit Provider Internal Medicine Medical Oncology | DX: C61 Malignant neoplasm of prostate (principal); C79.51 Secondary malignant neoplasm of bone | CPT/HCPCS: 80053; 85025 ==

== ENCOUNTER → 2021-01-02 11:34 | Outpatient (BNVA) | payer MEDICARE, SELFPAY | PROVIDERS: PCP Family Medicine; Visit Provider Internal Medicine Medical Oncology | DX: C77.9 Secondary and unspecified malignant neoplasm of lymph node, unspecified (principal) | CPT/HCPCS: 85025 ==

== ENCOUNTER → 2021-01-10 10:41 | Outpatient (BNVA) | payer MEDICARE, SELFPAY | PROVIDERS: PCP Family Medicine; Visit Provider Internal Medicine Medical Oncology | DX: C61 Malignant neoplasm of prostate (principal); C79.51 Secondary malignant neoplasm of bone; C77.9 Secondary and unspecified malignant neoplasm of lymph node, unspecified | CPT/HCPCS: 80053; 85007; 85025 ==

== ENCOUNTER 2021-01-11 09:37 | Outpatient (CLI) | payer MEDICARE, SELFPAY ==
--- NOTE | 2021-01-12 08:05 | ONC FU_ITS ---
Dr. Lopez Patient Follow-Up Note Patient: Bartolo Lopez Unit #: [id number]: 1950 Dicatated By: Trung Lopez M.D.Date of Visit:Jan 11, 2021 Onc Med Follow-up/Prog Note Chief Complaint: Prostate cancer. 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 On 03/08/2020 he was admitted to the hospital with complaints of weakness, back pain, and shortness of breath. The back pain had started in the early part of January. He thought it was just of back sprain, but it had continued to gradually worsen. His evaluation in the emergency room included lumbar spine CT which showed a diffuse mottled sclerotic appearance throughout the skeleton, suspicious for metastatic prostate cancer. Also noted was retroperitoneal and right iliac chain lymphadenopathy. His CT scans of the chest, abdomen, and pelvis also showed diffuse sclerotic changes throughout the skeletal structures. There were changes of severe centrilobular emphysema. There were multiple bilateral pulmonary nodules measuring up to 5 mm, metastatic disease not excluded. Also noted was retrocrural, posterior mediastinal, retroperitoneal, and right external iliac chain lymphadenopathy. The prostate was enlarged measuring 5.1 x 6.0 x 6.5 cm. He was noted to be mildly anemic with hemoglobin 11.0 g. White blood cell count was normal at 5400 but platelet count also was mildly decreased at 83,000. His differential showed 11 nucleated red cells per 100 WBCs. Renal function was normal with BUN 16 and creatinine 0.7 mg/dL. Calcium was normal at 9.5 mg/dL. Alkaline phosphatase was significantly elevated at 877/130 IUs/L. B12 and folate levels were normal. His PSA level was markedly elevated at 1344 ng/mL. During the hospitalization, he developed hypercapnic acute respiratory failure. This was thought to be due to a panic attack. He started treatment with bicalutamide 50 mg daily. He was given burst steroid therapy and empiric antibiotic coverage with Levaquin for his COPD. At discharge he also was started on metformin for steroid related hyperglycemia, and he also started amlodipine and lisinopril for hypertension. He had an outpatient follow-up with Dr. Cosby on 03/16/2020, and at that time he underwent ultrasound-guided biopsy of the prostate. Pathology showed high-grade prostatic adenocarcinoma, Bernarda score 10 (5+5). 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 On next generation sequencing, his tumor was noted to be MSI stable. The tumor mutation burden was low. There were no actionable mutations identified. 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 On 03/17/2020 he began androgen deprivation therapy with Zoladex. His antiandrogen therapy was subsequently transitioned to enzalutamide 160 mg daily. During follow-up there was a gradual decline in his PSA level. As of 05/23/2020 it was down to 1.230 ng/mL. His other medical illnesses have been limited to COPD and chronic anxiety. He has a history of smoking 1 pack of cigarettes daily for 25 to 30 years. He quit smoking in 2013. INTERIM HISTORY: He had continued androgen deprivation therapy with Zoladex 10.8 mg every 3 months together with enzalutamide 160 mg daily. As of his follow-up visit on 09/21/2020, he was doing well clinically, but there was an increase in his PSA level to 37.840 ng/mL. With that change, he had a repeat PSA on 10/20/2020, at which point it had further increased to 80.160 ng/mL. Restaging CT scans of the chest, abdomen, and pelvis on 10/31/2020 showed resolution of previously described periaortic and retroperitoneal lymphadenopathy. Numerous noncalcified subcentimeter pulmonary nodules appeared stable. Nodular enlarged heterogeneously enhancing prostate was noted to be slightly improved, measuring 4.6 cm. There was evidence for diffuse bony metastatic disease throughout the visualized bony structures, similar in appearance to the February 2020 study. Some areas did appear to have slightly progressed. Bone scan also showed evidence for diffuse osseous metastatic disease involving the thoracic and lumbar spine, bilateral ribs, sacrum, and both femurs, left greater than right. On 11/03/2020 he was seen to discuss options for his further treatment. At that point he preferred to continue his same ADT, as he was not overtly symptomatic. He also continued denosumab for the metastatic bone involvement. As of 11/16/2020 there was further increase in the PSA level to 196.200 ng/mL, and at that point he agreed to begin a trial of chemotherapy with docetaxel/prednisone. He received cycle 1 of docetaxel on 11/30/2020. He tolerated it without acute toxicity. He subsequently became neutropenic, but with uneventful recovery. He continued with cycle 2 on 12/21/2020. He is seen for a scheduled visit. His main complaint is that his breathing had gotten a lot worse following his second chemotherapy treatment. He says that he had minimal activity for about 10 days. Recently it has been a little better, and he has been doing some light work. His ECOG score is 1. He has good appetite. He does not have fever, night sweats, or hot flashes. He reports having constant sinus drainage, but he does not have cough. He is still short of breath with activity. He does not complain of chest pain. He has no GI/ complaints other than occasional bladder leakage. He is not having any significant joint or bone pain. He does not complain of headache. He occasionally gets lightheaded associated with low blood pressure. He has no numbness/paresthesia or other neuropathy symptoms. Medications: amLODIPine Besylate 1 (5 mg) Tablet Oral daily, Bicalutamide 1 (50 mg) Tablet Oral daily, Flomax 1 (0.4 mg) Capsule Oral daily, Fluticasone-Salmeterol 1 Puff(s) (of 100-50 mcg/dose) Aerosol Powder, Breath Activated Inhalation b.i.d., Lisinopril 1 (20 mg) Tablet Oral daily, LORazepam 1 (0.5 mg) Tablet Oral q 4 hours PRN, Sertraline HCl 1 (50 mg) Tablet Oral daily, Spiriva Respimat 1 (2.5 mcg/act) Aerosol, solution Inhalation daily Allergies: No Known Allergies. Vital Signs: Performed on Jan 11, 2021 10:40 Height - 75.00 in Weight - 178.4 lbs (LOW) BSA - 2.09 sq.m BMI - 22.30 Temperature - 96.7 F (LOW) Pulse - 100 /min Respiration - 20 /min BP - 163/94 mm(hg) (HIGH) O2 Sat - 100 % Pain - 0 Fatigue - 5 Physical Examination: Constitutional - He appears generally weak, and he appears short of breath with effort, Eyes - Sclerae nonicteric. Conjunctivae clear, ENMT - No lesions noted in the oral cavity, Hematologic/Lymphatic - No cervical, clavicular, or axillary adenopathy, Respiratory - Lungs sound clear but with diminished air movement bilaterally, Cardiovascular - Heart rhythm is regular. There is no murmur, gallop, or rub noted, Abdomen - Soft. Liver and spleen are not enlarged. There is no abdominal mass or ascites noted and there is no inguinal adenopathy, Extremities - No edema, Neurologic - No focal neurologic deficits noted. Lab/Imaging: CBC shows hemoglobin 10.6 g, white blood cell count 9300, and platelet count 69,000. Comprehensive metabolic profile shows stable renal function with BUN 13 and creatinine 0.6 mg/dL. The SGOT is mildly elevated at 73/40 U/L. The bilirubin and other liver enzymes are normal. The PSA level is increased to 475.300 ng/mL. Problem List: 1. High-grade prostatic adenocarcinoma, Bernarda score 10 (5+5), stage IVB with CT evidence of multiple sites of metastatic involvement. 2. COPD. 3. Hypertension. 4. Anxiety/depression. Problems Addressed with this Encounter and Plan: Patient with high-grade prostatic adenocarcinoma, Fifty Six score 10 (5+5), stage IVB. At presentation he had CT evidence of widespread sclerotic bony metastatic disease, multiple bilateral pulmonary nodules, and mediastinal, retrocrural, retroperitoneal, and right external iliac lymphadenopathy in association with markedly elevated PSA level. In addition, his CBC and blood smear findings were consistent with bone marrow involvement. He began antiandrogen therapy with bicalutamide 50 mg daily. On 03/17/2020 he started androgen deprivation therapy with Zoladex 10.8 mg. His antiandrogen was subsequently transitioned to enzalutamide 160 mg daily. He had a good response to the treatment by PSA level. As of 05/23/2020 it was down to 1.230 ng/mL. However, as of his 09/21/2020 visit it had increased significantly, to 37.840 ng/mL, and by 10/20/2020 it had further increased to 80.160 ng/mL. As he was not overtly symptomatic, at that point he opted to continue the androgen deprivation therapy. However, by 11/16/2020 there was further increase in the PSA level to 196.200 ng/mL, and at that point he stopped the enzalutamide and he agreed to a trial of chemotherapy with docetaxel/prednisone. He began cycle 1 on 11/30/2020. It was complicated by neutropenia, but with uneventful recovery. He otherwise tolerated the treatment well and he continued with cycle 2 on 12/19/2020. The treatment was again complicated by severe neutropenia and also by mild to moderately severe thrombocytopenia, but he appears to be recovering without adverse consequences. At this point he has become more significantly symptomatic with increased fatigue and shortness of breath. There has been a significant further increase in the PSA level, now to 475.300 ng/mL. He is clearly progressing on the chemotherapy, and he will not be scheduled for restaging CT scans which will include CT pulmonary angiogram and contrast-enhanced CT of the abdomen/pelvis. I will see him again to discuss further treatment when those results are available. One possibility may be a trial of further chemotherapy with cabazitaxel in combination with carboplatin. However, given the rapid disease progression on docetaxel the likelihood of benefit will be low, and the overall prognosis in this situation appears to be very poor. Signed By: Trung Lopez M.D. <<Signature on File>>
== END 2021-01-11 09:38 | disposition home or self-care (01) ==
LOC: ONCMED 09:39
PROVIDERS: PCP Family Medicine; Visit Provider Internal Medicine Medical Oncology
DX: C61 Malignant neoplasm of prostate (principal); C79.51 Secondary malignant neoplasm of bone; C78.01 Secondary malignant neoplasm of right lung; C78.02 Secondary malignant neoplasm of left lung; C77.8 Secondary and unspecified malignant neoplasm of lymph nodes of multiple regions; R97.20 Elevated prostate specific antigen [PSA]; J44.9 Chronic obstructive pulmonary disease, unspecified; I10 Essential (primary) hypertension; F41.9 Anxiety disorder, unspecified; F32.9 Major depressive disorder, single episode, unspecified; Z79.899 Other long term (current) drug therapy; Z92.21 Personal history of antineoplastic chemotherapy
CPT/HCPCS: 84153; 99214

== ENCOUNTER 2021-01-12 13:04 | Outpatient (CLI) | payer MEDICARE, SELFPAY ==
--- NOTE | 2021-01-12 13:10 | CT_ITS ---
WS: [id number] CTA OF THE CHEST WITH PULMONARY EMBOLISM PROTOCOL TECHNIQUE: High-resolution contrast enhanced CTA of the chest with coronal and sagittal reformatted i mages with pulmonary embolism protocol. MIP images are also reviewed. CLINICAL INFORMATION: PROSTATE CANCER/SHORTNESS OF BREATH COMPARISON: CT October 31, 2020 DLP: 1221.[address] scans at [facility] use at least one of these dose optimization techniques: automated e xposure control; mA and/or kV adjustment per patient size (includes targeted exams where dose is matc hed to clinical indication); or iterative reconstruction. FINDINGS: Proximal main pulmonary arteries are normal. Normal segmental and subsegmental pulmonary arteries. No evidence of pulmonary embolus. Normal caliber thoracic aorta. Aortic calcification. No mediastinal o r hilar lymphadenopathy. No axillary lymphadenopathy. Moderate chronic emphysematous changes. Small patchy infiltrate within the right lower lobe near the diaphragm suspicious for pneumonia. David mmend follow-up after treatment. A few subcentimeter noncalcified pulmonary nodules are stable. Diffuse sclerotic metastasis throughout the visualized bony structures are similar to previous. Adrenal glands are normal. Partially visualized hepatomegaly. Tiny pericardial effusion. CT/CT angio chest PE protcl [id number] IMPRESSION: 1. No evidence of pulmonary embolus. 2. Moderate chronic emphysematous changes. 3. New patchy infiltrate within the right lower lobe near the diaphragm suspic ious for pneumonia. Recommend follow-up after treatment. This is new from previ ous. 4. Diffuse chronic bony metastasis throughout the visualized bony structures s imilar to previous. 5. Several stable subcentimeter noncalcified pulmonary nodules.
[2021-01-12] MEDS: iohexol 350 mg/mL 100 mL Btl IV ×2 (13:41→13:42)
== END 2021-01-12 13:05 | disposition home or self-care (01) ==
LOC: RAD 13:07
PROVIDERS: PCP Family Medicine; Visit Provider Internal Medicine Medical Oncology
DX: C61 Malignant neoplasm of prostate (principal); R06.02 Shortness of breath; R91.8 Other nonspecific abnormal finding of lung field
CPT/HCPCS: 71275

== ENCOUNTER 2021-01-13 11:25 | Outpatient (CLI) | payer MEDICARE, SELFPAY ==
--- NOTE | 2021-01-13 11:55 | CT_ITS ---
WS: [id number] CT scan of the abdomen and pelvis with Oral and IV contrast. Additional two-dimensional coronal and s agittal reconstruction was performed. 01/13/2021 Clinical Data: PROSTATE CANCER, SECONDARY MALIGNANT NEOPLASM OF BONE Comparison: CT chest abdomen pelvis, 10/31/2020. DLP: 1083.[address] scans at [facility] use at least one of these dose optimization techniques: automated e xposure control; mA and/or kV adjustment per patient size (includes targeted exams where dose is matc hed to clinical indication); or iterative reconstruction. Findings: The lower lungs show no masses or effusions. There is a 0.4 cm right lower lobe nodule seen best on a xial image 3 of 87 and is unchanged. The liver, gallbladder, spleen, adrenal glands and pancreas are normal. The kidneys show equal bilateral contrast excretion with a right cortical cyst. No hydronephrosis, ma ss or renal calculi are seen. The abdominal aorta is moderately dilated with calcification in the wal l. There is a 3.0 cm infrarenal abdominal aortic aneurysm. No appendicitis or diverticulitis is seen. Oral contrast is in the small bowel and there is no bowel dilatation. No abscess, adenopathy, ascites, mass, obstruction or free air is seen. The bladder is unremarkable. The prostate gland is enlarged. No inguinal hernia is seen. The bones of the lower thorax, lumbar spine, pelvis, and hips show metastatic disease which appears t he same. CT/CT abdomen pelvis w con* [id number] Impression: 1. Diffuse metastatic involvement of the vertebra, pelvis, sacrum and hips. 2. Small infrarenal abdominal aortic aneurysm.
[2021-01-13] MEDS: iohexol 300 mg/mL 50 mL Btl PO (13:07)
[2021-01-13] MEDS: iodixanol 320 mg/mL 100mL Btl IV (13:28)
== END 2021-01-13 11:26 | disposition home or self-care (01) ==
PROVIDERS: PCP Family Medicine; Visit Provider Internal Medicine Medical Oncology
DX: C61 Malignant neoplasm of prostate (principal); I71.4 Abdominal aortic aneurysm, without rupture
CPT/HCPCS: 74177; Q9967

== ENCOUNTER 2021-01-16 06:20 | Outpatient (CLI) | payer MEDICARE, SELFPAY ==
[2021-01-16] MEDS: sodium chloride 0.9% (100 ml) 100 ML 300 ML (11:09)
[2021-01-16] MEDS: levoFLOXacin 250 mg Tablet PO (11:20)
[2021-01-16 11:21] LABS: Basophils % 0.5 %; Eosinophils # 0.1 10^3/uL (0.0-0.8); Eosinophils % 1.5 %; Hematocrit 29.6 % (42.0-52.0); Hemoglobin 9.3 g/dL (11.7-16.6); Lymphocytes # 0.7 10^3/uL (0.8-4.8); Lymphocytes % 9.8 %; Mean Corpuscular HGB Conc 31.4 g/dL (30.0-36.0); Mean Corpuscular Hemoglobin 27.8 pg (28.0-34.0); Mean Corpuscular Volume 88.4 fl (80-94); Monocytes # 0.5 10^3/uL (0.2-0.9); Monocytes % 6.8 %; Neutrophils # 5.39 10^3/uL (1.8-7.7); Neutrophils % 73.1 %; Nucleated Red Blood Cells # 0.1 /100WBC; Nucleated Red Blood Cells % 1.1 %; Platelet Count 81 10^3/cmm (130-400); Red Blood Count 3.35 10^6/uL (4.1-5.3); Red Cell Distribution Width 16.9 % (12.1-15.1); White Blood Count 7.4 10^3/uL (4.0-10.0)
[2021-01-16 11:45] LABS: Alanine Aminotransferase 21 U/L (0-41); Albumin Level 3.6 g/dL (3.5-5.2); Alkaline Phosphatase 92 IU/L (40-130); Anion Gap 17.9 (5-19); Aspartate Amino Transferase 48 U/L (0-40); Blood Urea Nitrogen 10 mg/dL (8-23); Calcium 8.4 mg/dL (8.5-10.5); Carbon Dioxide 23 mmol/L (22-29); Chloride 94 mmol/L (98-107); Globulin 2.6 g/dL (1.3-4.6); Glucose 119 mg/dL (65-115); Osmolality Calculated 270 mOsm/kg (285-295); Potassium 4.9 mmol/L (3.5-5.1); Sodium 130 mmol/L (136-145); Total Bilirubin 0.3 mg/dL (0.15-1.2); Total Protein 6.2 g/dL (6.6-8.7)
[2021-01-16 12:26] LABS: Slide Review Slide Review Perform
--- NOTE | 2021-01-16 15:42 | ONC FU_ITS ---
Dr. Lopez Patient Follow-Up Note Patient: Bartolo Lopez Unit #: [id number]: 1950 Dicatated By: Trung Lopez M.D.Date of Visit:Jan 16, 2021 Onc Med Follow-up/Prog Note Chief Complaint: Prostate cancer. 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 On 03/08/2020 he was admitted to the hospital with complaints of weakness, back pain, and shortness of breath. The back pain had started in the early part of January. He thought it was just of back sprain, but it had continued to gradually worsen. His evaluation in the emergency room included lumbar spine CT which showed a diffuse mottled sclerotic appearance throughout the skeleton, suspicious for metastatic prostate cancer. Also noted was retroperitoneal and right iliac chain lymphadenopathy. His CT scans of the chest, abdomen, and pelvis also showed diffuse sclerotic changes throughout the skeletal structures. There were changes of severe centrilobular emphysema. There were multiple bilateral pulmonary nodules measuring up to 5 mm, metastatic disease not excluded. Also noted was retrocrural, posterior mediastinal, retroperitoneal, and right external iliac chain lymphadenopathy. The prostate was enlarged measuring 5.1 x 6.0 x 6.5 cm. He was noted to be mildly anemic with hemoglobin 11.0 g. White blood cell count was normal at 5400 but platelet count also was mildly decreased at 83,000. His differential showed 11 nucleated red cells per 100 WBCs. Renal function was normal with BUN 16 and creatinine 0.7 mg/dL. Calcium was normal at 9.5 mg/dL. Alkaline phosphatase was significantly elevated at 877/130 IUs/L. B12 and folate levels were normal. His PSA level was markedly elevated at 1344 ng/mL. During the hospitalization, he developed hypercapnic acute respiratory failure. This was thought to be due to a panic attack. He started treatment with bicalutamide 50 mg daily. He was given burst steroid therapy and empiric antibiotic coverage with Levaquin for his COPD. At discharge he also was started on metformin for steroid related hyperglycemia, and he also started amlodipine and lisinopril for hypertension. He had an outpatient follow-up with Dr. Cosby on 03/16/2020, and at that time he underwent ultrasound-guided biopsy of the prostate. Pathology showed high-grade prostatic adenocarcinoma, Bernarda score 10 (5+5). 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 On next generation sequencing, his tumor was noted to be MSI stable. The tumor mutation burden was low. There were no actionable mutations identified. 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 On 03/17/2020 he began androgen deprivation therapy with Zoladex. His antiandrogen therapy was subsequently transitioned to enzalutamide 160 mg daily. During follow-up there was a gradual decline in his PSA level. As of 05/23/2020 it was down to 1.230 ng/mL. His other medical illnesses have been limited to COPD and chronic anxiety. He has a history of smoking 1 pack of cigarettes daily for 25 to 30 years. He quit smoking in 2013. INTERIM HISTORY: He had continued androgen deprivation therapy with Zoladex 10.8 mg every 3 months together with enzalutamide 160 mg daily. As of his follow-up visit on 09/21/2020, he was doing well clinically, but there was an increase in his PSA level to 37.840 ng/mL. With that change, he had a repeat PSA on 10/20/2020, at which point it had further increased to 80.160 ng/mL. Restaging CT scans of the chest, abdomen, and pelvis on 10/31/2020 showed resolution of previously described periaortic and retroperitoneal lymphadenopathy. Numerous noncalcified subcentimeter pulmonary nodules appeared stable. Nodular enlarged heterogeneously enhancing prostate was noted to be slightly improved, measuring 4.6 cm. There was evidence for diffuse bony metastatic disease throughout the visualized bony structures, similar in appearance to the February 2020 study. Some areas did appear to have slightly progressed. Bone scan also showed evidence for diffuse osseous metastatic disease involving the thoracic and lumbar spine, bilateral ribs, sacrum, and both femurs, left greater than right. On 11/03/2020 he was seen to discuss options for his further treatment. At that point he preferred to continue his same ADT, as he was not overtly symptomatic. He also continued denosumab for the metastatic bone involvement. As of 11/16/2020 there was further increase in the PSA level to 196.200 ng/mL, and at that point he agreed to begin a trial of chemotherapy with docetaxel/prednisone. He received cycle 1 of docetaxel on 11/30/2020. He tolerated it without acute toxicity. He subsequently became neutropenic, but with uneventful recovery. He continued with cycle 2 on 12/21/2020. Seen for a follow-up visit on 01/11/2021. At that point he had become significantly more short of breath. He was not having chest pain, and he was not having any significant bone pain. His PSA level had increased significantly, to 475.300 ng/mL. His treatment was put on hold. He had further evaluation with CT pulmonary angiogram on 01/12/2021. It showed no evidence of pulmonary embolus. There were moderate chronic emphysematous changes and a small patchy infiltrate was noted within the right lower lobe, suspicious for pneumonia. There was no evidence of pulmonary metastatic disease and there is no mediastinal or hilar adenopathy. Diffuse sclerotic metastases were noted throughout the visualized bony structures, similar to the previous study from October. His CT abdomen/pelvis on 01/13/2021 again showed diffuse metastatic involvement within the bony structures similar to the previous study. There is no recurrence of adenopathy or evidence of other metastatic disease. He is seen for a follow-up visit. Following his visit last week, he had developed fever and cough and with the CT findings he began on antibiotic therapy with Levaquin. He has since then continued to have shortness of breath and he has remained on oxygen at home. He desaturates quickly with activity, and his activity tolerance is very limited. ECOG score is 3. His appetite is not bad. He had a low-grade fever for 2 nights and he has been having episodes of chills and sweating. He occasionally has sore throat. He is not coughing as much now, but he is still short of breath and he is on breathing treatments 3 times a day. He has no GI complaints. He has some bladder leakage with the shortness of breath. He is having some muscle pain and stiffness, but no significant joint or bone pain. He does not complain of headache or dizziness, and he has no focal neurologic symptoms. Medications: Bicalutamide 1 (50 mg) Tablet Oral daily, Flomax 1 (0.4 mg) Capsule Oral daily, Fluticasone-Salmeterol 1 Puff(s) (of 100-50 mcg/dose) Aerosol Powder, Breath Activated Inhalation b.i.d., LORazepam 1 (0.5 mg) Tablet Oral q 4 hours PRN, Sertraline HCl 1 (50 mg) Tablet Oral daily, Spiriva Respimat 1 (2.5 mcg/act) Aerosol, solution Inhalation daily Allergies: No Known Allergies. Vital Signs: Performed on Jan 16, 2021 12:00 Height - 75.00 in Temperature - 96.8 F (LOW) Pulse - 84 /min Respiration - 12 /min BP - 162/92 mm(hg) (HIGH) O2 Sat - 100 % Pain - 0 Fatigue - 8 Physical Examination: Constitutional - He appears generally weak, Eyes - Sclerae nonicteric. Conjunctivae clear, ENMT - No lesions noted in the oral cavity, Hematologic/Lymphatic - No cervical, clavicular, or axillary adenopathy, Respiratory - Lungs show markedly diminished air movement bilaterally, Cardiovascular - Heart rhythm is regular. There is a mild tachycardia. There is no murmur, gallop, or rub noted, Abdomen - Soft. Liver and spleen are not enlarged. There is no abdominal mass or ascites noted and there is no inguinal adenopathy, Extremities - No edema, Neurologic - No focal neurologic deficits noted. Lab/Imaging: Test performed on Jan 16, 2021 11:09 Sodium 130 mmol/L Potassium 4.9 mmol/L Chloride 94 mmol/L CO2 23 mmol/L Anion Gap 17.9 BUN 10 mg/dL Creatinine 0.5 mg/dL Cr Clearance (Est) 151.3100 mL/min Glucose 119 mg/dL Osmolality - Calculated 270 mOsm/kg Calcium 8.4 mg/dL Protein, Total 6.2 g/dL Albumin 3.6 g/dL Globulin 2.6 g/dL Bilirubin, Total 0.3 mg/dL ALT (SGPT) 21 U/L AST (SGOT) 48 U/L Alkaline Phosphatase 92 IU/L WBC 7.4 10 3/uL RBC 3.35 10 6/uL HGB 9.3 g/dL HCT 29.6 % MCV 88.4 fl MCH 27.8 pg MCHC 31.4 g/dL RDW 16.9 % Platelet Count 81 10 3/cmm MPV 12.0 fL Neutrophils 5.39 10 3/uL Lymphocytes 0.7 10 3/uL Monocytes 0.5 10 3/uL Eosinophils 0.1 10 3/uL Basophils 0.0 10 3/uL Neutrophil % 73.1 % Lymphocyte % 9.8 % Monocyte % 6.8 % Eosinophil % 1.5 % Basophils % 0.5 % NRBC % 1.1 % CBC Slide Review Slide Review Perform SLIDE REVIEW AGREES WITH AUTOMATED RESULTS Problem List: 1. High-grade prostatic adenocarcinoma, Bernarda score 10 (5+5), stage IVB with CT evidence of multiple sites of metastatic involvement. 2. COPD. 3. Hypertension. 4. Anxiety/depression. Problems Addressed with this Encounter and Plan: Patient with high-grade prostatic adenocarcinoma, Bernarda score 10 (5+5), stage IVB. At presentation he had CT evidence of widespread sclerotic bony metastatic disease, multiple bilateral pulmonary nodules, and mediastinal, retrocrural, retroperitoneal, and right external iliac lymphadenopathy in association with markedly elevated PSA level. In addition, his CBC and blood smear findings were consistent with bone marrow involvement. He began antiandrogen therapy with bicalutamide 50 mg daily. On 03/17/2020 he started androgen deprivation therapy with Zoladex 10.8 mg. His antiandrogen was subsequently transitioned to enzalutamide 160 mg daily. He had a good response to the treatment by PSA level. As of 05/23/2020 it was down to 1.230 ng/mL. However, as of his 09/21/2020 visit it had increased significantly, to 37.840 ng/mL, and by 10/20/2020 it had further increased to 80.160 ng/mL. As he was not overtly symptomatic, at that point he opted to continue the androgen deprivation therapy. However, by 11/16/2020 there was further increase in the PSA level to 196.200 ng/mL, and at that point he stopped the enzalutamide and he agreed to a trial of chemotherapy with docetaxel/prednisone. He began cycle 1 on 11/30/2020. It was complicated by neutropenia, but with uneventful recovery. He otherwise tolerated the treatment well and he continued with cycle 2 on 12/19/2020. The treatment was again complicated by severe neutropenia and also by mild to moderately severe thrombocytopenia, but he is showing gradual recovery. In the meantime, there has been a very significant increase in his PSA level, now to 475.300 ng/mL, consistent with disease progression. He has been more short of breath, but that appears to correlate with evidence of pneumonia on his CT pulmonary angiogram. Thus far by restaging CT his disease appears to be limited to the bone involvement. With his disease showing significant progression on first-line chemotherapy and with disease limited to bone/bone marrow, I am going to try and get him scheduled for treatment with radium 223. In the meantime, he is still significantly symptomatic with the COPD/pneumonia. He will be given Solu-Medrol 60 mg IV today and he will continue steroid therapy with the prednisone taper. His Levaquin dosage will be increased to 750 mg daily for another 7 days. Signed By: Trung Lopez M.D. <<Signature on File>>
== END 2021-01-16 06:21 | disposition home or self-care (01) ==
LOC: ONCMED 06:23
PROVIDERS: PCP Family Medicine; Visit Provider Internal Medicine Medical Oncology
DX: C61 Malignant neoplasm of prostate (principal); C79.51 Secondary malignant neoplasm of bone; J44.9 Chronic obstructive pulmonary disease, unspecified; I10 Essential (primary) hypertension; F41.9 Anxiety disorder, unspecified; F32.9 Major depressive disorder, single episode, unspecified; Z79.818 Long term (current) use of other agents affecting estrogen receptors and estrogen levels; Z79.52 Long term (current) use of systemic steroids; Z79.2 Long term (current) use of antibiotics; Z79.899 Other long term (current) drug therapy
CPT/HCPCS: 80053; 85025; 96365; 99215; J2930

== ENCOUNTER → 2021-01-23 12:20 | Outpatient (BNVA) | payer MEDICARE, SELFPAY | PROVIDERS: PCP Family Medicine; Visit Provider Internal Medicine Medical Oncology | DX: C61 Malignant neoplasm of prostate (principal); C79.51 Secondary malignant neoplasm of bone | CPT/HCPCS: 80053; 85025 ==

== ENCOUNTER 2021-01-25 10:29 | Observation (INO) | payer MEDICARE, SELFPAY ==
[2021-01-25] VITALS (17 sets, daily range): BP systolic 99–131; BP diastolic 69–104; PULSE 87–117; RESP 16–21; TEMP 36.6–36.9; O2SAT 89–100; BMI 22.5; BMI 22.6
--- NOTE | 2021-01-25 11:23 | ECG_ITS ---
[facility] Test Date: 2021-01-25 Pat Name: Bartolo Lopez Department: Room: Gender: Male [employer]: : 1950 Requested By: Dank Cooney Order Number: [id number] Henrry MD: Deborah Valencia M.D. Measurements Intervals [place] Rate: 94 P: 78 NE: 160 QRS: -2 QRSD: 99 T: -74 QT: 372 QTc: 467 Interpretive Statements SINUS RHYTHM INDETERMINATE AXIS INCOMPLETE RIGHT BUNDLE BRANCH BLOCK [90+ ms QRS DURATION, TERMINAL R IN V1/V2, 40+ ms S IN I/aVL/V4/V5/V6] ST DEVIATION AND MODERATE T-WAVE ABNORMALITY, CONSIDER ANTEROLATERAL ISCHEMIA [-0.1+ mV T-WAVE IN V3-V6] ST DEVIATION AND MODERATE T-WAVE ABNORMALITY, CONSIDER INFERIOR ISCHEMIA [-0.1+ mV T-WAVE IN II/aVF] Compared to ECG 11/23/2020 10:14:34 Indeterminate axis now present.Incomplete right bundle-branch block now present T-wave abnormality now present.Possible ischemia now present.Intraventricular conduction delay no longer present.ST (T wave) deviation no longer present Electronically Signed On 01-25-2021 22:01:17 TRAFFIC MANAGER by Deborah Valencia M.D. [email or web address]
--- NOTE | 2021-01-25 11:23 | XR_ITS ---
WS: [id number] XR chest 1V portable [id number] REASON FOR EXAM: dyspnea/cough FINDINGS: The heart and mediastinum are within normal limits. Chemotherapy infusion port and transverse left subclavian vein catheter remain in proper position. Calcified granulomatous disease in both hemithoraces. Compared to the previous examination of 11/28/2020, there are reticular interstitial changes in the l eft lower lung not identifiable on the previous study. No other significant interval change or new finding noted. XR/XR chest 1V portable [id number] IMPRESSION: Interstitial changes in the right lower lung of unknown chronicity. Could repre sent early pulmonary edema secondary to congestive heart failure. Acute or suba cute pneumonitis also considered.
--- NOTE | 2021-01-25 11:41 | ED_ITS ---
HPI - SOB/Dyspnea General: Chief Complaint: Shortness of Breath/Dyspnea Stated Complaint: SOB, DECREASED URINATION & ORAL INTAKE Time Seen by Provider: 01/25/21 11:11 History of Present Illness: HPI Narrative: 68-year-old male presents emergency room complaining of shortness of breath and decreased urinary output. Patient has stage IV prostate cancer with bony metastasis neurosurgery history of COPD and is on 2 to 3 L by nasal cannula chronically. Up until a couple weeks ago he was using it only at night now he has begun to use it 24 hours a day. He was on a course of oral antibiotics which she finished about 2 days ago but he seems to continue to have difficulty. He has noticed decreased p.o. intake and decreased urination. He denies any hematochezia melena hematemesis coffee-ground emesis denies any chest pain. Is not had any hematuria. He denies any flank pain or abdominal pain. He has had a very mild nonproductive cough that has persisted. MD elicited complaint: shortness of breath and cough Pertinent past history: COPD Onset (ago): minute(s) Context: recent illness Severity: moderate Exacerbating factors: nothing Relieving factors: nothing Associated symptoms: Reports cough; Deny abdominal pain, chest congestion, chest pain, diaphoresis, dizziness, extremity pain, fever(s), hemoptysis, lightheadedness, myalgias, nausea, orthopnea, palpitations, paresthesias, polydipsia, polyuria, rash, sense of impending doom, syncope or vomiting Treatment prior to arrival: oxygen Review of Systems Const: Denies: fever(s) or diaphoresis ENMT: Denies: throat pain, ear or mastoid pain, nasal discharge or nasal congestion Card: Denies: chest pain, palpitations, lightheadedness, syncope or orthopnea Resp: Denies: hemoptysis or chest congestion GI: Denies: abdominal pain, nausea or vomiting : Denies: flank pain, dysuria, urinary frequency or urinary urgency Musc: Denies: extremity pain Skin/Breast: Denies: rash or pruritus Neuro: Denies: dizziness Endo: Denies: polyuria or polydipsia PFSH ED PFSH: Medical History Adjustment disorder Anxiety COPD (chronic obstructive pulmonary disease) 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 cancer metastatic to bone Surgical History H/O eye surgery Family History Mother , in her 60's Asthma Father , at age 83 Prostate cancer Social History Smoking and tobacco status: former smoker Quit status (tobacco): has quit using tobacco Year quit tobacco: 2013 [id number] Second hand smoke exposure: No Smoking risk assessment/counseling performed?: Yes Alcohol intake: current Lives independently: Yes Household members: spouse Housing: House Marital status: significant other service: No Current occupational status: retired Pets and animals: No History of recent travel: No Current gender identity: Male Physical Exam Const: GENERAL APPEARANCE: cooperative ORIENTATION/CONSCIOUSNESS: Yes awake, Yes oriented to person, Yes oriented to place and Yes oriented to time HENMT: COMMON NORMALS: normocephalic, atraumatic and hearing grossly normal bilaterally HEAD & SCALP: normocephalic and atraumatic Resp: EFFORT & INSPECTION: Yes tachypneic, Yes pursed lip breathing, Yes labored, Yes uses accessory muscles and Yes prolonged expiratory phase AUSCULTATION: wheezes Cardio: COMMON NORMALS: regular rhythm and No murmurs present (Cardio) RATE: tachycardic RHYTHM: regular rhythm GI: COMMON NORMALS: Soft to palpation and No hepatosplenomegaly present AUSCULTATION: Yes normoactive bowel sounds PALPATION: Yes Soft to palpation, No Tenderness to palpation present (GI), No Guarding due to palpation present (GI) and Yes No hepatosplenomegaly present Extremity: COMMON NORMALS: normal to inspection, capillary refill normal, no clubbing, cyanosis or edema, no calf tenderness and no pedal edema Neuro: SENSORIUM/ORIENTATION: Yes oriented to person, Yes oriented to place and Yes oriented to time Skin: COMMON NORMALS: no rashes or lesions noted GENERAL SKIN EXAM: no rashes or lesions noted Course Vital Signs: Vital signs: Vital Signs Temperature 98.1 F 01/28/21 08:00 Pulse Rate 97 01/28/21 08:16 Respiratory Rate 18 01/28/21 08:10 Blood Pressure 144/87 01/28/21 08:00 Pulse Oximetry 94 01/28/21 08:16 MDM - SOB/Dyspnea MDM Narrative: Medical decision making narrative: Labs and imaging reviewed.Patient appears to have pneumonia on. He also has exacerbation of his COPD is having some urinary retention from his prostate CA. Discussed the hospitalist orders written Lab Data: Labs: Lab Results 01/25/21 01/25/21 01/25/21 11:57 11:57 11:57 WBC 8.3 10^3/uL 10^3/ uL (4.0-10.0) RBC 3.33 10^6/uL L 10 ^6/uL (4.1-5.3) Hgb 9.1 g/dL L g/dL (11.7-16.6) Hct 28.6 % L % (42.0-52.0) MCV 85.9 fl fl (80-94) MCH 27.3 pg L pg (28.0-34.0) MCHC 31.8 g/dL g/dL (30.0-36.0) RDW 18.1 % H % (12.1-15.1) Plt Count 45 10^3/cmm L 10^ 3/cmm (130-400) MPV Not Reportable Neut % (Auto) 75.3 % % Lymph % (Auto) 9.8 % % Stanton % (Auto) 7.9 % % Eos % (Auto) 0.5 % % Baso % (Auto) 0.4 % % Neut # (Auto) 6.22 10^3/uL 10^3 /uL (1.8-7.7) Lymph # (Auto) 0.8 10^3/uL 10^3/ uL (0.8-4.8) Stanton # (Auto) 0.7 10^3/uL 10^3/ uL (0.2-0.9) Eos # (Auto) 0.0 10^3/uL 10^3/ uL (0.0-0.8) Baso # (Auto) 0.0 10^3/uL 10^3/ uL (0.0-0.1) Nucleated RBC % (a uto) 1.0 % % Nucleated RBCs # 0.1 /100WBC /100W BC Sodium 122 mmol/L L mmol /L (136-145) Potassium 5.1 mmol/L mmol/L (3.5-5.1) Chloride 86 mmol/L L mmol/ L (98-107) Carbon Dioxide 21 mmol/L L mmol/ L (22-29) Anion Gap 20.1 H (5-19) BUN 15 mg/dL mg/dL (8-23) Creatinine 0.5 mg/dL L mg/dL (0.7-1.2) GFR Calculation Not Reportable Glucose 129 mg/dL H mg/dL (65-115) Calculated Osmolal ity 257 mOsm/kg L mOs m/kg (285-295) Calcium 7.6 mg/dL L mg/dL (8.5-10.5) Total Bilirubin 0.6 mg/dL mg/dL (0.15-1.2) AST 71 U/L H U/L (0-40) ALT 18 U/L U/L (0-41) Alkaline Phosphata se 155 IU/L H IU/L (40-130) Total Protein 6.0 g/dL L g/dL (6.6-8.7) Albumin 3.7 g/dL g/dL (3.5-5.2) Globulin 2.3 g/dL g/dL (1.3-4.6) Procalcitonin 0.20 ng/mL ng/mL (0-0.5) Discharge Plan Discharge Patient Disposition: Admitted As Inpatient Admit Provider: Xavi Stone Clinical Impression: Prostate cancer metastatic to bone, Thrombocytopenia, Type 2 diabetes mellitus, Anemia, Essential hypertension Condition: Stable Discharge Diet: Cardiac Discharge Activity: Increase activity as tolerated Coding Level of Care Code ED Limnology Teacher for Chg Fwd Exam Comprehensive
[2021-01-25 12:10] LABS: Basophils % 0.4 %; Eosinophils % 0.5 %; Hematocrit 28.6 % (42.0-52.0); Hemoglobin 9.1 g/dL (11.7-16.6); Lymphocytes # 0.8 10^3/uL (0.8-4.8); Lymphocytes % 9.8 %; Mean Corpuscular HGB Conc 31.8 g/dL (30.0-36.0); Mean Corpuscular Hemoglobin 27.3 pg (28.0-34.0); Mean Corpuscular Volume 85.9 fl (80-94); Monocytes # 0.7 10^3/uL (0.2-0.9); Monocytes % 7.9 %; Neutrophils # 6.22 10^3/uL (1.8-7.7); Neutrophils % 75.3 %; Nucleated Red Blood Cells # 0.1 /100WBC; Platelet Count 45 10^3/cmm (130-400); Red Blood Count 3.33 10^6/uL (4.1-5.3); Red Cell Distribution Width 18.1 % (12.1-15.1); White Blood Count 8.3 10^3/uL (4.0-10.0)
[2021-01-25 12:25] LABS: Alanine Aminotransferase 18 U/L (0-41); Albumin Level 3.7 g/dL (3.5-5.2); Alkaline Phosphatase 155 IU/L (40-130); Anion Gap 20.1 (5-19); Aspartate Amino Transferase 71 U/L (0-40); Blood Urea Nitrogen 15 mg/dL (8-23); Calcium 7.6 mg/dL (8.5-10.5); Carbon Dioxide 21 mmol/L (22-29); Chloride 86 mmol/L (98-107); Globulin 2.3 g/dL (1.3-4.6); Glucose 129 mg/dL (65-115); Osmolality Calculated 257 mOsm/kg (285-295); Potassium 5.1 mmol/L (3.5-5.1); Sodium 122 mmol/L (136-145); Total Bilirubin 0.6 mg/dL (0.15-1.2)
[2021-01-25 12:51] LABS: Slide Review Slide Review Perform
[2021-01-25] MEDS: ipratropium-albuterol 3 mL Neb INHALATION ×2 (13:03→21:28)
--- NOTE | 2021-01-25 13:20 | PM.HP ---
Providers/Chief Complaint Primary Care Provider: Sridevi Summers MD Chief Complaint: SOB, DECREASED URINATION & ORAL INTAKE History of Present Illness Bartolo Lopez is a 70 year old male who has history of prostate cancer with metastatic lesions to the bone currently seeing Dr. Lopez undergoing therapy, was diagnosed with pneumonia 2 weeks ago he has been taking Levaquin at home but his symptoms of shortness of breath worsened and he decided to come to the hospital today. At home he has not noticed any fever, nausea, vomiting, chest pain or diarrhea. He is vaccinated for COVID-19. He has been using his respiratory distress his muscles for last 48 hours, he has not noticed any fever, he is bringing up brownish sputum with cough. In the ER chest x-ray consistent with pneumonia however when I requested CTA chest, it did show some resolution of previous consolidation, patient clinically was very anxious, he was pursed lip breathing, he stated that he is uncomfortable because he is not able to urinate, requested Brady catheter placement, he was given Xanax, he is agreeable for a trial of BiPAP to ease his work of breathing. CTA chest ruled out pulmonary embolism. I will start him on broad-spectrum antibiotics & request urine antigen. Review of Systems Const: Reports: chills, body aches, fatigue and malaise Eyes: Denies: change in vision ENMT: Denies: throat pain Card: Denies: chest pain Resp: Reports: dyspnea, productive cough, change in phlegm color and chest congestion GI: Denies: abdominal pain : Denies: flank pain Musc: Denies: neck pain Skin/Breast: Denies: dry skin Neuro: Denies: headache(s) Psych: Reports: anxiety Endo: Denies: polyuria Srikanth/Lymph: Denies: easy bruising All/Imm: Denies: urticaria Medications/Allergies Home Medications Medication Instructions Recorded Confirmed Last Taken Type acetaminophen [Tylenol] 500 mg PO Q4H PRN 03/08/20 11/28/20 11/27/20 History Narcan 4 mg INTRANASAL Q2M PRN #2 ea 03/11/20 11/28/20 Unknown Rx glucometer #1 ea 03/11/20 09/13/20 Unknown Rx oxycodone-acetaminophen 5 mg-325 1 tab PO Q8H PRN 03/21/20 11/28/20 11/27/20 History mg tablet sraight catheters #30 ea 04/05/20 09/13/20 Unknown Rx Portable oxygen concentrator #1 ea 04/18/20 09/13/20 Unknown Rx albuterol sulfate 90 mcg/actuation 1 inh INHALATION Q6H PRN #18 g 05/12/20 11/28/20 11/27/20 Rx aerosol inhaler fluticasone 500 mcg-salmeterol 50 1 inh INHALATION BID #180 ea 05/12/20 11/28/20 11/27/20 Rx mcg/dose blistr powdr for inhalation sertraline 50 mg tablet 75 mg PO DAILY #135 tab 05/12/20 11/28/20 11/27/20 Rx tiotropium bromide 18 mcg capsule 1 cap INHALATION DAILY #180 inh 05/12/20 11/28/20 11/27/20 Rx with inhalation device goserelin 3.6 mg subcutaneous 3.6 mg SUBCUT Q90D ea 05/19/20 11/28/20 11/27/20 History implant ipratropium 0.5 mg-albuterol 3 mg 3 ml INHALATION Q6H PRN #360 ml 06/17/20 11/28/20 11/27/20 Rx (2.5 mg base)/3 mL nebulization soln amlodipine 5 mg tablet 5 mg PO BID #180 tab 07/05/20 11/28/20 11/28/20 05:30 Rx lisinopril 20 mg tablet 20 mg PO BID #180 tab 07/05/20 11/28/20 11/27/20 Rx Xgeva 120 mg SUBCUT Q7D 11/23/20 11/28/20 11/27/20 History tamsulosin [Flomax] 0.4 mg PO DAILY 11/23/20 11/28/20 11/27/20 History Allergies Allergy/AdvReac Type Severity Reaction Status Date / Time No Known Allergies Allergy Verified 11/23/20 09:56 PFSH Acute PFSH: Medical History Adjustment disorder Anxiety COPD (chronic obstructive pulmonary disease) 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 cancer metastatic to bone Surgical History H/O eye surgery Family History Mother , in her 60's Asthma Father , at age 83 Prostate cancer Social History Smoking and tobacco status: former smoker Quit status (tobacco): has quit using tobacco Year quit tobacco: 2013 [id number] Second hand smoke exposure: No Smoking risk assessment/counseling performed?: Yes Alcohol intake: current Lives independently: Yes Household members: spouse Housing: House Marital status: significant other service: No Current occupational status: retired Pets and animals: No History of recent travel: No Current gender identity: Male Vitals/I&O/Wt Last Vital Signs Temp 98.5 F 01/25/21 10:51 Pulse 97 01/25/21 13:10 Resp 18 01/25/21 13:10 BP 117/80 01/25/21 10:51 Pulse Ox 100 01/25/21 13:10 Weight last 48 hrs Weight 81.647 kg Physical Exam Narrative: EXAM NARRATIVE: male Who appears stated age, anxious appearing, when I entered the room he was pursed lip breathing Clinically hydrated Left-sided Mediport Pursed lip breathing Conversational dyspnea Blood retraction noted around right side Using accessory muscles Respiratory rate above 25 Diminished airflow however no active wheezing crackles or rhonchi Abdomen soft Lower extremity no edema EOMI, PERRLA Nonfocal neuro exam No cyanosis Data : 01/25/21 11:57 01/25/21 11:57 A&P Assessment and plan (1) Prostate cancer metastatic to bone: Status: Inactive (2) 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: Status: Inactive (3) Anemia: Status: Acute (4) Urinary retention: Status: Resolved (5) Essential hypertension: Status: Acute (6) Type 2 diabetes mellitus: Status: Acute (7) Thrombocytopenia: Status: Acute (8) Prostate cancer: Status: Acute (9) Anxiety: Status: Acute (10) Generalized weakness: Status: Acute Additional A&P Information Acute hypoxic respiratory failure Conversational dyspnea Tachypnea Current acquired pneumonia CTA chest ruled out PE Start broad-spectrum antibiotics as he is immunocompromised Check urine antigen, patient is vaccinated for COVID-19 Check procalcitonin and CRP Give Xanax and BiPAP trial in the ER to decrease work of breathing At home uses 2 L at night currently requiring 4 L at rest with tachypnea, use of respiratory project 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 muscles and pursed lip breathing I will start IV steroids along DuoNeb CPAP at night Full code Cardiac diet DVT prophylaxis Lovenox Prostate cancer with mets to bone: Continue opioids, bowel regimen Anxiety: Continue antidepressants Acute on chronic hyponatremia: No active neurological signs or symptoms, will start IV fluids Check serum and urine osmolarity, TSH and uric acid Attestations Medical Necessity Statement*: More than 2 midnights anticipated Time Spent in Patient Care: Greater than 35 minutes Coding Level of Care Code Acute Park Worker Supervisor for Chg Fwd Diagnoses Prostate cancer metastatic to bone C61; C79.51 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
--- NOTE | 2021-01-25 14:05 | CT_ITS ---
WS: [id number] CT angio chest PE protcl [id number] REASON FOR EXAM: dyspena TECHNIQUE: Coronal and sagittal 2-D and MIP reformations. IV CONTRAST ADMINISTERED: 145 mL of Omnipaque 350 TOTAL EXAM DLP: 631.[address] scans at [facility] use at least one of these dose optimization techniques: automat ed exposure control; mA and/or kV adjustment per patient size (includes targeted exams where dose is matched to clinical indication); or iterative reconstruction. FINDINGS: Central lobar emphysematous changes. There are no pulmonary emboli. Thoracic aorta is unchanged with no aneurysmal dilatation or findings of dissection. No mediastinal or hilar mass or adenopathy. Multiple pulmonary nodules bilaterally some of which are calcified. Stellate area of scarring in the posterior right upper lobe. Small area of infiltrative change adjacent to the mid right hemidiaphragm in the right lower lobe anthony ws partial resolution. The examination is otherwise unchanged compared to the previous study with no new findings. No pleural fluid. Diffuse bony metastatic disease. CT/CT angio chest PE protcl [id number] IMPRESSION: Partial resolution of the right lower lobe infiltrate. CT of the chest is other dickinson unchanged compared to 11/12/2020.
[2021-01-25] MEDS: iohexol 350 mg/mL 100 mL Btl IV (14:38)
[2021-01-25] MEDS: LORazepam 2 mg/mL INJ 1 mL IVP (15:20)
--- NOTE | 2021-01-25 21:04 | XRR_ITS ---
PROCEDURE INFORMATION: Exam: XR Chest Exam date and time: 01/25/2021 9:04 PM Age: 70 years old Clinical indication: Shortness of breath; Additional info: SOB TECHNIQUE: Imaging protocol: XR of the chest. Views: 1 view. COMPARISON: CR XR chest 1V portable [id number] 01/25/2021 11:39 AM FINDINGS: Tubes, catheters and devices: Stable left Mediport catheter. Lungs: Stable COPD . Pleural spaces: Unremarkable. No pleural effusion. No pneumothorax. Heart/Mediastinum: Unremarkable. No cardiomegaly. Bones/joints: Unremarkable. XR/XR chest 1V portable [id number] IMPRESSION: 1. Stable left Mediport catheter. 2. Stable COPD .
[2021-01-25 21:14] LABS: Glucose Point of Care 189 mg/dL (70-110)
[2021-01-25 21:14] LABS: ABG PCO2 42.1 mmHg (35-45); Arterial Blood Gas Hematocrit 28.5 % (42-52); Base Excess ABG 0.8 mmol/L (-2.0-2.0); Blood Gas Allen Test Pos; Blood Gas Sample Site Radial, left; Blood Gas Sample Type Arterial; Carboxyhemoglobin 1.2 %THgb (0.4-20.1); HCO3 ABG 25.8 mmol/L (22-26); HGB O2 Sat 97.3 % (95-100); Ionized Calcium Level - ABG 1.1 mmol/L (1.1-1.4); Oxygen Device BIPAP; Oxygen Saturation ABG 99.5; Potassium Level - ABG 5.1 mmol/L (3.5-5.0); Total Hemoglobin 9.3 g/dL (14-18)
[2021-01-25] MEDS: vancomycin 1,000 MG in sodium chloride 0.9% 250 ML 250 MG IV (22:03)
[2021-01-25] MEDS: piperacillin-tazobactam 3.375 GM in sodium chloride 0.9% (plus) 50 ML IV (22:19)
[2021-01-25] MEDS: enoxaparin 40 mg/0.4 mL Syringe SUBCUT (22:24)
--- NOTE | 2021-01-25 22:55 | CTR_ITS ---
PROCEDURE INFORMATION: Exam: CT Head Without Contrast Exam date and time: 01/25/2021 10:55 PM Age: 70 years old Clinical indication: Altered mental status/memory loss TECHNIQUE: Imaging protocol: Computed tomography of the head without contrast. Radiation optimization: All CT scans at this facility use at least one of these dose optimization techniques: automated exposure control; mA and/or kV adjustment per patient size (includes targeted exams where dose is matched to clinical indication); or iterative reconstruction. COMPARISON: NM bone scan whole body* [id number] 10/31/2020 8:32 AM RADIATION DOSE METRICS: Total DLP (mGy-cm): 1648.22 FINDINGS: Brain: Normal. No hemorrhage. Unremarkable white matter. No mass effect. Cerebral ventricles: No ventriculomegaly. Paranasal sinuses: Visualized sinuses are unremarkable. No fluid levels. Mastoid air cells: Visualized mastoid air cells are well aerated. Vasculature: Mild calcified intracranial atherosclerotic vessel disease. Bones/joints: Unremarkable. No acute fracture. Soft tissues: Unremarkable. Other findings: Examination is limited secondary to motion artifact. CT/CT head wo con* [id number] IMPRESSION: No acute intracranial findings.
[2021-01-26] VITALS (11 sets, daily range): BP systolic 95–130; BP diastolic 62–90; PULSE 77–108; RESP 16–24; TEMP 36.6–36.9; O2SAT 3–98
--- NOTE | 2021-01-26 03:04 | PC.NURSE ---
01/25/2021 @ 1900, patient in room supine, non-responsive, no s/s of distress, patient VS stable, resp stable, 02 at 95% with 02 set at 3 lpm, bipap at standby. @2030 patient sweating, continue to be unresponsive, blood sugar 187, respiration increasing and accessory muscles used, respiratory therapy called into room, placed patient on bipab, neb treatment administered, 02 90%, lung sounds extremely dim, call placed to Dr. Carvajal, Stat chest X-ray and ABG ordered, patient respiration gradually returning to normal, @ 220 Dr. Carvajal ordered head CT due to continued unresponsiveness and Na low, respiratory therapy to remove bipap after an hour then patient is to go to CT, @0000 patient awakened and began talking, c/o feeling sleepy and having plenty of mucus in chest, patient alert and oriented, asked questions while Dr in room talking with patient, patient verbalized not remembering anything that occurred. patient voided, attempted to insert west early in shift unsuccessfully, this was mentioned to Dr. Carvajal. Dr. Carvajal stated to leave west out, if patient becomes or feels bladder distention, do bladder scan and if needed place west in, patient stable, respiration non-labored, continue to monitor patient,
[2021-01-26 04:14] LABS: ABG PCO2 40.9 mmHg (35-45); ABG PH Result 7.42 (7.35-7.45); Base Excess ABG 1.8 mmol/L (-2.0-2.0); Blood Gas Allen Test Pos; Blood Gas Sample Site Radial, right; Blood Gas Sample Type Arterial; HCO3 ABG 26.4 mmol/L (22-26); Oxygen Device NC; PO2 ABG 64.5 mmHg (80.0-100.0)
[2021-01-26 05:22] LABS: SARS Covid-2 Antigen Negative (Negative)
[2021-01-26] MEDS: piperacillin-tazobactam 3.375 GM in sodium chloride 0.9% (plus) 50 ML IV ×3 (05:41→22:51)
[2021-01-26] MEDS: vancomycin 1,000 MG in sodium chloride 0.9% 250 ML 250 MG IV ×3 (05:43→21:04)
[2021-01-26 05:51] LABS: Hematocrit 29.1 % (42.0-52.0); Hemoglobin 9.2 g/dL (11.7-16.6); Mean Corpuscular HGB Conc 31.6 g/dL (30.0-36.0); Mean Corpuscular Hemoglobin 27.3 pg (28.0-34.0); Mean Corpuscular Volume 86.4 fl (80-94); Platelet Count 56 10^3/cmm (130-400); Red Blood Count 3.37 10^6/uL (4.1-5.3); Red Cell Distribution Width 18.3 % (12.1-15.1); White Blood Count 7.6 10^3/uL (4.0-10.0)
[2021-01-26 06:09] LABS: Alanine Aminotransferase 19 U/L (0-41); Albumin Level 3.4 g/dL (3.5-5.2); Alkaline Phosphatase 159 IU/L (40-130); Aspartate Amino Transferase 62 U/L (0-40); Blood Urea Nitrogen 15 mg/dL (8-23); Calcium 7.5 mg/dL (8.5-10.5); Carbon Dioxide 22 mmol/L (22-29); Chloride 88 mmol/L (98-107); Globulin 2.7 g/dL (1.3-4.6); Glucose 138 mg/dL (65-115); Osmolality Calculated 265 mOsm/kg (285-295); Sodium 126 mmol/L (136-145); Total Bilirubin 0.5 mg/dL (0.15-1.2); Total Protein 6.1 g/dL (6.6-8.7)
[2021-01-26 06:10] LABS: C Reactive Protein 286.4 mg/L (0.0-4.9); Magnesium 2.2 mg/dL (1.7-2.3)
[2021-01-26 07:54] LABS: Slide Review Slide Review Perform
[2021-01-26 07:58] LABS: Absolute Segmented Neutrophil 4.9 10/cmm (1.6-7.1); Band Neutrophils Absolute 1.2 10^3/cmm (0.0-1.2); Lymphocytes 11 %; Monocytes Absolute 0.2 10^3/cmm (0.1-0.6); Segmented Neutrophils 65 %; Total Cells Counted 100 (0-100)
[2021-01-26 07:59] LABS: Poikilocytosis 1+
[2021-01-26 08:00] LABS: Absolute Neutrophil 6.2 10^3/cmm (1.4-6.5); Eosinophils 0 %; Lymphocytes Absolute 0.8 10^3/cmm (1.2-3.4); Platelet Estimate Decreased (Normal); Schistocytes Trace
[2021-01-26] MEDS: sertraline 50 mg Tablet 75 MG PO (08:47)
[2021-01-26] MEDS: sennosides-docusate Tablet 1 TAB PO (08:47)
[2021-01-26] MEDS: tamsulosin 0.4 mg Capsule PO (08:47)
[2021-01-26] MEDS: amlodipine 5 mg Tablet PO (08:47)
[2021-01-26] MEDS: lisinopril 20 mg Tablet PO (08:48)
--- NOTE | 2021-01-26 09:23 | PC.CHAP ---
Pastoral Care Encounter/Spiritual Assessment Type of Contact [] Declined emg technician visit [] Patient/Family/Request visit [] Outpatient visit [] Follow-up visit [] Physician referral [] Code/Alert [] Routine visit [] Staff referral [] Actively dying [] Patient sleeping [] Family support [] [] Out of room [] Palliative care [] [] Receiving care in room [] Pre-surgical visit [] Trauma [] Long length of stay [] ICU visit [x] Other: Isoilation Relational/Emotional Strength [] Patient feels connected with others/family/visitors/staff [] Distress [] Loneliness/isolation [] Abandonment Spirituality of Patient [] Person of Stephanie [] Attends Zoroastrianism of their Stephanie [] Believes in Prayer [] Reads Bible or Mosque materials [] There are Spiritual issues to be addressed Mechanical Commissioning Engineer Interventions [] Prayer [] Active listening [] Non-anxious presence [] Spiritual/emotional support [] Crisis/trauma care [] Spiritual counseling [] Bereavement support [] Provided bereavement packet [] Provided Bible/devotional materials [] Provided toy/stuffed animal, coloring book to patient or family member [] Provided Communion [] Anointing/[place] [] Salvation [] Completed spiritual assessment [] Other: Impact on Illness or Injury [] Angry [] Fearful [] Anxious [] Often cries [] Exhaustion [] Unable to work [] Unable to attend episcopalian [] Unable to walk/stand [] Unable to read [] Unable to drive [] Unable to eat/drink [] Unable to sleep [] Unable to be with family [] Patient intubated [] Other: Summary Isoilation Time spent with patient 5 mins
--- NOTE | 2021-01-26 09:28 | P.PN_ITS ---
Subjective Subjective: Interval history: Last night patient received Ativan 2 mg IV push which made him very drowsy patient is stating that he is very sensitive to these kind of medications This morning he is endorsing feeling better He still has pursed lip breathing which he is taking his chronic He did use BiPAP last night CTA chest rule out pulmonary embolism shows mild resolution of the right-sided pneumonia Covid PCR is pending Urine, had 1 bowel movement na improved 226 Remained confused and drowsy until midnight, blood work was repeated overnight which was unremarkable Vitals/I&O/Wt Last Vital Signs Temp 98.0 F 01/26/21 08:00 Pulse 100 01/26/21 09:10 Resp 20 H 01/26/21 09:10 BP 125/82 01/26/21 08:00 Pulse Ox 98 01/26/21 09:10 01/25/21 01/26/21 01/26/21 22:59 06:59 14:59 Intake Total 80 / 80 1390 / 1470 Output Total 450 / 450 200 / 200 Balance 80 / 80 940 / 1020 -200 / -200 Weight last 48 hrs Weight 82.236 kg Weight 81.647 kg Physical Exam Narrative: EXAM NARRATIVE: Patient has pursed lip breathing which she states is chronic Currently on 3 L nasal cannula Does use his respiratory failure muscles Abdomen soft Giurgius NT no edema EOMI, PERRLA Less anxious as compared to yesterday Nonfocal neuro exam Awake and alert at the bedside Data : 01/26/21 05:00 01/26/21 05:00 Micro: Microbiology 01/25/21 17:36 Blood Culture - Preliminary Blood SPECIMEN COLLECTED 01/25/21 17:32 Blood Culture - Preliminary Blood SPECIMEN COLLECTED A&P Assessment and plan (1) Respiratory failure: Status: Acute (2) Hypoxia: Status: Acute (3) Essential hypertension: Status: Acute (4) Ex-smoker: Status: Acute (5) Anemia: Status: Acute (6) Type 2 diabetes mellitus: Status: Acute (7) Thrombocytopenia: Status: Acute (8) Prostate cancer: Status: Acute (9) Anxiety: Status: Acute (10) COPD (chronic obstructive pulmonary disease): Status: Acute Qualifiers: COPD type: unspecified COPD Qualified Code(s): J44.9 - Chronic obst ructive pulmonary disease, unspecified Additional A&P Information Acute hypoxic respiratory failure Conversational dyspnea Pursed lip breathing Patient states he is feeling slightly better He wants to follow-up with Dr. Pagan and asking if he could be discharged, he will stay until Covid PCR result, no leukocytosis, afebrile, CTA ruled out pulmonary embolism, resolution of pneumonia noted For now I would continue IV steroids and broad-spectrum antibiotics Prostate cancer with bony metastases Has chronic thrombocytopenia and anemia no acute worsening Hold off on Lovenox for now SCDs for DVT prophylaxis Cardiac diet For hypertension continue lisinopril and amlodipine No active signs of urine retention he is able to void, had 1 bowel movement Attestations Medical Necessity Statement*: Patient likely will be discharged tomorrow if clinically stable Time Spent in Patient Care: 16 - 35 minutes Coding Level of Care Code Acute Package Sorter for Dea Sparks Diagnoses Respiratory failure J96.90 Hypoxia R09.02 Essential hypertension I10 Ex-smoker Z87.891 Anemia D64.9 Type 2 diabetes mellitus E11.9 Thrombocytopenia D69.6 Prostate cancer C61 Anxiety F41.9 COPD (chronic obstructive pulmonary disease) J44.9 COPD type: unspecified COPD
[2021-01-26] MEDS: ipratropium-albuterol 3 mL Neb INHALATION (17:04)
[2021-01-26] MEDS: oxyCODONE-APAP 5-325 mg Tablet 1 TAB PO (19:45)
[2021-01-26 21:34] LABS: Vancomycin Trough 12.7 ug/mL (10-15)
[2021-01-27] VITALS (13 sets, daily range): BP systolic 111–129; BP diastolic 72–86; PULSE 74–96; RESP 13–22; TEMP 36.6–36.9; O2SAT 87–97
[2021-01-27 03:48] LABS: ABG PCO2 41.3 mmHg (35-45); ABG PH Result 7.43 (7.35-7.45); Arterial Blood Gas Hematocrit 27.1 % (42-52); Base Excess ABG 2.7 mmol/L (-2.0-2.0); Blood Gas Allen Test Pos; Blood Gas Operator Identificat Anonymous; Blood Gas Sample Site Radial, right; Blood Gas Sample Type Arterial; HCO3 ABG 27.3 mmol/L (22-26); Oxygen Device NC; PO2 ABG 82.3 mmHg (80.0-100.0)
[2021-01-27] MEDS: vancomycin 1,000 MG in sodium chloride 0.9% 250 ML 250 MG IV ×2 (05:41→13:33)
[2021-01-27 06:38] LABS: Basophils % 0.3 %; Hematocrit 26.7 % (42.0-52.0); Hemoglobin 8.3 g/dL (11.7-16.6); Lymphocytes # 0.9 10^3/uL (0.8-4.8); Lymphocytes % 12.9 %; Mean Corpuscular HGB Conc 31.1 g/dL (30.0-36.0); Mean Corpuscular Hemoglobin 27.1 pg (28.0-34.0); Mean Corpuscular Volume 87.3 fl (80-94); Monocytes # 0.5 10^3/uL (0.2-0.9); Monocytes % 7.2 %; Neutrophils # 5.32 10^3/uL (1.8-7.7); Neutrophils % 73.8 %; Nucleated Red Blood Cells # 0.1 /100WBC; Nucleated Red Blood Cells % 1.1 %; Platelet Count 64 10^3/cmm (130-400); Red Blood Count 3.06 10^6/uL (4.1-5.3); Red Cell Distribution Width 18.5 % (12.1-15.1); White Blood Count 7.2 10^3/uL (4.0-10.0)
[2021-01-27 07:00] LABS: Anion Gap 16.1 (5-19); Blood Urea Nitrogen 18 mg/dL (8-23); Calcium 7.7 mg/dL (8.5-10.5); Carbon Dioxide 24 mmol/L (22-29); Chloride 90 mmol/L (98-107); Glucose 150 mg/dL (65-115); Osmolality Calculated 265 mOsm/kg (285-295); Potassium 5.1 mmol/L (3.5-5.1); Sodium 125 mmol/L (136-145)
[2021-01-27] MEDS: sertraline 50 mg Tablet 75 MG PO (07:29)
[2021-01-27] MEDS: piperacillin-tazobactam 3.375 GM in sodium chloride 0.9% (plus) 50 ML IV ×2 (07:37→15:08)
[2021-01-27] MEDS: tamsulosin 0.4 mg Capsule PO (07:38)
[2021-01-27 08:29] LABS: Slide Review Slide Review Perform
[2021-01-27] MEDS: ipratropium-albuterol 3 mL Neb INHALATION (11:07)
[2021-01-27] MEDS: morphine 4 mg/mL SDV 1 mL 2 MG IVP (11:15)
[2021-01-27 14:34] LABS: Coronavirus Test Green County Not Detected
--- NOTE | 2021-01-27 15:46 | PM.PN ---
Subjective Subjective: Interval history: Patient is endorsing feeling better, he is anxious, requested palliative consult, Covid PCR will be resulted between 3 and 4 PM today Afebrile No leukocytosis Is doing well on 3 L nasal cannula Home O2 evaluation was done this morning Vitals/I&O/Wt Last Vital Signs Temp 98.0 F 01/27/21 11:47 Pulse 83 01/27/21 11:47 Resp 17 01/27/21 11:47 BP 111/72 01/27/21 11:47 Pulse Ox 97 01/27/21 11:47 01/27/21 01/27/21 01/27/21 06:59 14:59 22:59 Intake Total 300 / 1240 1010 / 1010 Output Total 300 / 800 Balance 0 / 440 1010 / 1010 Weight last 48 hrs Weight 82.236 kg Physical Exam Narrative: EXAM NARRATIVE: Patient still has pursed lip breathing, no conversational dyspnea today Doing well on 2 L nasal cannula Diminished airflow bilaterally No active wheezing S1, S2 Abdomen soft Lower extremity no edema EOMI, PERRLA Data : 01/27/21 05:19 01/27/21 05:19 Micro: Microbiology 01/25/21 22:30 Gram Stain - Final Sputum - Expectorated Sputum Sputum Culture - Preliminary 01/25/21 17:36 Blood Culture - Preliminary Blood NEGATIVE TO DATE 01/25/21 17:32 Blood Culture - Preliminary Blood NEGATIVE TO DATE A&P Assessment and plan (1) Respiratory failure: Status: Acute (2) Hypoxia: Status: Acute (3) Essential hypertension: Status: Acute (4) Anemia: Status: Acute (5) Type 2 diabetes mellitus: Status: Acute (6) Thrombocytopenia: Status: Acute (7) Prostate cancer: Status: Acute (8) COPD (chronic obstructive pulmonary disease): Status: Acute Qualifiers: COPD type: unspecified COPD Qualified Code(s): J44.9 - Chronic obstructive pulmonary disease, unspecified Additional A&P Information Acute on chronic hypoxia related to pneumonia with underlying COPD Currently doing well on 3 L at home Home O2 eval done today Covid PCR will be resulted between 3 and 4 PM Plan to discharge him tomorrow No leukocytosis, he has stayed afebrile He has chronic pursed lip breathing He does use his respiratory accessory muscles, will need/benefit from pulmonary rehab 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 body 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, does have inhalers at home Plan to discharge him tomorrow after palliative consult Cardiac diet Full code DVT prophylaxis held secondary to thrombocytopenia He does have history of prostate cancer with metastasis to bone, chemotherapy-induced thrombocytopenia no active bleeding Attestations Medical Necessity Statement*: amada brito covid neg Time Spent in Patient Care: 16 - 35 minutes Coding Level of Care Code Acute Painting Instructor for g Fwd Diagnoses Respiratory failure J96.90 Hypoxia R09.02 Essential hypertension I10 Anemia D64.9 Type 2 diabetes mellitus E11.9 Thrombocytopenia D69.6 Prostate cancer C61 COPD (chronic obstructive pulmonary disease) J44.9 COPD type: unspecified COPD
[2021-01-28] VITALS: BP 131/87; PULSE 89; RESP 20; TEMP 36.3; O2SAT 91
[2021-01-28 04:00] VITALS: BP 134/86; PULSE 89; RESP 18; TEMP 36.5; O2SAT 96
[2021-01-28] MEDS: acetaminophen 325 mg Tablet 650 MG PO (04:39)
[2021-01-28 05:45] LABS: Hematocrit 27.7 % (42.0-52.0); Hemoglobin 8.3 g/dL (11.7-16.6); Mean Corpuscular Hemoglobin 27.7 pg (28.0-34.0); Mean Corpuscular Volume 92.3 fl (80-94); Platelet Count 70 10^3/cmm (130-400); Red Cell Distribution Width 18.6 % (12.1-15.1); White Blood Count 8.2 10^3/uL (4.0-10.0)
[2021-01-28] MEDS: levoFLOXacin 750 mg Tablet PO (06:16)
[2021-01-28 07:18] LABS: Band Neutrophils Absolute 0.7 10^3/cmm (0.0-1.2); Eosinophils 1 %; Lymphocytes 12 %; Lymphocytes Absolute 1.1 10^3/cmm (1.2-3.4); Monocytes Absolute 0.2 10^3/cmm (0.1-0.6); Segmented Neutrophils 73 %; Slide Review Slide Review Perform; Total Cells Counted 100 (0-100)
[2021-01-28 07:19] LABS: Absolute Neutrophil 6.6 10^3/cmm (1.4-6.5); Platelet Estimate Decreased (Normal)
[2021-01-28 08:00] VITALS: BP 144/87; PULSE 90; RESP 20; TEMP 36.7; O2SAT 92
[2021-01-28] MEDS: ipratropium-albuterol 3 mL Neb INHALATION (08:05)
[2021-01-28 08:10] VITALS: PULSE 95; RESP 18; O2SAT 93
[2021-01-28 08:16] VITALS: PULSE 97; O2SAT 94
[2021-01-28] MEDS: tamsulosin 0.4 mg Capsule PO (09:15)
[2021-01-28] MEDS: sertraline 50 mg Tablet 75 MG PO (09:15)
--- NOTE | 2021-01-28 11:42 | PM.DCS ---
Discharge Providers Date of Admission: 01/25/21 18:53 Date of Discharge: January 28, 2021 Attending Provider at Admission: Xavi Stone MD Attending Provider at Discharge: Xavi Stone MD Primary Care Provider: Sridevi Summers MD Diagnoses at Discharge Discharge Diagnosis (1) Respiratory failure: Status: Acute (2) Hypoxia: Status: Acute (3) Essential hypertension: Status: Acute (4) Anemia: Status: Acute (5) Type 2 diabetes mellitus: Status: Acute (6) Thrombocytopenia: Status: Acute (7) Prostate cancer: Status: Acute (8) COPD (chronic obstructive pulmonary disease): Status: Acute Qualifiers: COPD type: unspecified COPD Qualified Code(s): J44.9 - Chronic obstructive pulmonary disease, unspecified Reason for Visit Reason for Visit: SOB, DECREASED URINATION & ORAL INTAKE Hospital Course Hospital Course History of Present Illness Bartolo Lopez is a 70 year old male who has history of prostate cancer with metastatic lesions to the bone currently seeing Dr. Lopez undergoing therapy, was diagnosed with pneumonia 2 weeks ago he has been taking Levaquin at home but his symptoms of shortness of breath worsened and he decided to come to the hospital today. At home he has not noticed any fever, nausea, vomiting, chest pain or diarrhea. He is vaccinated for COVID-19. He has been using his respiratory distress his muscles for last 48 hours, he has not noticed any fever, he is bringing up brownish sputum with cough. In the ER chest x-ray consistent with pneumonia however when I requested CTA chest, it did show some resolution of previous consolidation, patient clinically was very anxious, he was pursed lip breathing, he stated that he is uncomfortable because he is not able to urinate, requested Brady catheter placement, he was given Xanax, he is agreeable for a trial of BiPAP to ease his work of breathing. CTA chest ruled out pulmonary embolism. I will start him on broad-spectrum antibiotics Hospital course Patient was admitted for management and evaluation of respiratory failure, conversational dyspnea related to community-acquired pneumonia. He failed outpatient Levaquin therapy. He was started on broad-spectrum antibiotics. CTA negative for PE, chest imaging showed improvement. He was given IV steroids. BiPAP helped to decrease the work of breathing and reduce his anxiety. He was given 2 mg of Ativan in the ER which made him very drowsy however his mentation improved after 4 hours. Patient has chronic pursed lip breathing pattern, he did not spike any fever, no worsening of leukocytosis, requested palliative consultation, Dr. Kingsley will do palliative consult at home, he will be discharged on Augmentin and doxycycline. Covid PCR negative outpatient follow-up with office spec Dr. Pagan. I have prescribed Mucinex, Mucomyst for his chest congestion,& tamsolusin for BPH. Qualified for 3L NC at discharge. Physical Exam Narrative: EXAM NARRATIVE: Patient has pursed lip breathing, Doing well on 2 L nasal cannula Diminished airflow bilaterally No active wheezing S1, S2 Abdomen soft Lower extremity no edema EOMI, PERRLA Discharge Data Data Completed and Pending: Completed Studies During Hospitalization Category Date Time Status CT angio chest PE protcl [id number] Stat Cat Scan 01/25/21 14:[address] head wo con* 7 [id number] Stat Cat Scan 01/25/21 22:55 Completed XR chest 1V madeline ble [id number] Stat Exams 01/25/21 11:23 Completed XR chest 1V madeline ble [id number] Stat Exams 01/25/21 21:04 Completed Pending at discharge Category Date Time Status ABG FULL [Arteria l Blood Gas Full] Stat Lab 01/25/21 21:03 Results Blood Culture Sta t Lab 01/25/21 17:36 Results Labs from last 24 hours 01/28/21 01/25/21 05:05 23:00 WBC 8.2 RBC 3.00 L Hgb 8.3 L Hct 27.7 L MCV 92.3 D MCH 27.7 L MCHC 30.0 RDW 18.6 H Plt Count 70 L MPV Not Reportable Lymph % (Auto) Not Reportable [place] % (Auto) Not Reportable Lymph # (Auto) Not Reportable [place] # (Auto) Not Reportable Total Counted 100 Atypical Lymphs % 1.0 Absolute Neutrophi ls 6.6 H Segmented Neutroph ils 73 Abs Segm Neuts (Ma n) 6.0 Band Neutrophils 8.0 Abs Band Neuts (Ma n) 0.7 Absolute Lymphocyt es 1.1 L Lymphocytes (Manua [place]) 12 Monocytes (Manual) 2.0 Absolute Monocytes 0.2 Eosinophils (Manua [place]) 1 Absolute Eosinophi ls 0.0 Basophils (Manual) 0.0 Absolute Basophils 0.0 Metamyelocytes 3.0 Nucleated RBCs 2.0 H Platelet Estimate Decreased Nasal/Oral COVID-1 9 PCR Not detected Vitals: Last Vital Signs Temp 98.1 F 01/28/21 08:00 Pulse 97 01/28/21 08:16 Resp 18 01/28/21 08:10 BP 144/87 01/28/21 08:00 Pulse Ox 94 01/28/21 08:16 Discharge Plan Discharge Patient Disposition: Home Condition: Stable Prescriptions: New Medrol (Garth) 4 mg tablets,dose pack See Rx Instructions .ROUTE .COMPLEX Qty: 21 RF: 0 Mucinex 600 mg tablet extended release 12hr 600 mg PO BID PRN (Reason: congestion) Qty: 60 RF: 2 Augmentin 875-125 mg tablet 1 tab PO BID Qty: 20 RF: 0 doxycycline monohydrate 100 mg capsule 100 mg PO BID 3 Days Qty: 6 RF: 0 tamsulosin 0.4 mg capsule 0.4 mg PO DAILY Qty: 30 RF: 3 Chest Congestion Relief 400 mg tablet 400 mg PO TID PRN (Reason: congestion) Qty: 90 RF: 1 acetylcysteine 500 mg capsule 500 mg PO BID Qty: 30 RF: 0 Continued oxycodone-acetaminophen 5-325 mg tablet 1 tab PO Q8H PRN (Reason: moderate pain (scale score 5-6)) RF: 0 (DME) sraight catheters See Rx Instructions .Route .MEDSUPPLY Qty: 30 RF: 0 ipratropium-albuterol 0.5 mg-3 mg(2.5 mg base)/3 mL solution for nebulization 3 ml inhalation Q6H PRN (Reason: wheezing) Qty: 360 RF: 5 lisinopril 20 mg tablet 20 mg PO BID Qty: 180 RF: 3 amlodipine 5 mg tablet 5 mg PO BID Qty: 180 RF: 3 Advair Diskus 500-50 mcg/dose blister with device 1 inh inhalation BID Qty: 180 RF: 3 albuterol sulfate 90 mcg/actuation HFA aerosol inhaler 1 inh inhalation Q6H PRN (Reason: shortness of breath or wheezing) Qty: 18 RF: 6 Spiriva with HandiHaler 18 mcg capsule, w/inhalation device 1 cap inhalation DAILY Qty: 180 RF: 3 (DME) Portable oxygen concentrator See Rx Instructions .Route .MEDSUPPLY Qty: 1 RF: 0 acetaminophen [Tylenol] 325 mg Capsule 500 mg PO Q4H PRN (Reason: Pain) RF: 0 (DME) glucometer See Rx Instructions .Route .MEDSUPPLY Qty: 1 RF: 0 Narcan 4 mg/actuation spray,non-aerosol 4 mg intranasal Q2M PRN (Reason: opioid overdose) Qty: 2 RF: 0 tamsulosin [Flomax] 0.4 mg capsule 0.4 mg PO QPM RF: 0 Xgeva 120 mg/1.7 mL (70 mg/mL) Solution 120 mg SUBCUT Q30D RF: 0 prednisone 10 mg tablet See Rx Instructions .ROUTE .COMPLEX RF: 0 prednisone 5 mg tablet 5 mg PO DAILY RF: 0 Zoladex 10.8 mg Implant 10.8 mg SUBCUT .EVERY 3 MONTHS RF: 0 prochlorperazine maleate 10 mg tablet 10 mg PO Q6H PRN (Reason: ext med history shows last filled 11/28/20 ) RF: 0 dexamethasone 4 mg tablet See Rx Instructions .ROUTE .COMPLEX RF: 0 lorazepam 1 mg tablet 1 mg PO TID PRN (Reason: ext med history shows last filled 11/28/20 10d/s) RF: 0 sertraline 50 mg tablet 100 mg PO DAILY RF: 0 Discharge Orders: Discharge Order (Routine); Ordered 01/28/21 Ordered By: Xavi Stone Other Ambulatory Orders: XR chest 2V* [id number] (Routine) Timeframe: 6 Weeks Facility: [facility] - Location: Rad[facility] Ordered By: Xvai Stone DME: Oxygen (Order) Location: None Selected Ordered By: Xavi Stone Ref[place]: [facility]) [Outside] DatarShahbaz MD [Physician] - 1 week (Please call to make a follow up appointment on Saturday. ) Sridevi Summers MD [Primary Care Provider] - 1-3 days (Please call to make a follow up appointment on Saturday. ) Discharge Diet: Cardiac Discharge Activity: Increase activity as tolerated Patient Instructions: COPD, Decongestant/Expectorant (By mouth), Doxycycline (By mouth), Amoxicillin/Clavulanate Potassium (By mouth), Methylprednisolone (By mouth), Tamsulosin (By mouth), Acute Respiratory Failure (ED), COPD Stoplight, Opioid Safety Discharge Attestations Time Spent in Discharge Care*: less than 30 min Quality Metrics Clinical Quality Measures During this hospital stay, did patient experience: None Coding Level of Care Code Acute [facility] FW MD note Diagnoses Respiratory failure J96.90 Hypoxia R09.02 Essential hypertension I10 Anemia D64.9 Type 2 diabetes mellitus E11.9 Thrombocytopenia D69.6 Prostate cancer C61 COPD (chronic obstructive pulmonary disease) J44.9 COPD type: unspecified COPD
== END 2021-01-28 14:38 | disposition home or self-care (01) ==
LOC: ER 16:59 → MEDSURG 17:21
PROVIDERS: Student in an Organized Health Care Education/Training Program; Admitting Provider Internal Medicine; Emergency Provider Family Medicine; PCP Family Medicine; Visit Provider Internal Medicine
DX: J96.91 Respiratory failure, unspecified with hypoxia (principal); D69.6 Thrombocytopenia, unspecified; D64.9 Anemia, unspecified; R33.9 Retention of urine, unspecified; C61 Malignant neoplasm of prostate; C79.51 Secondary malignant neoplasm of bone; C77.9 Secondary and unspecified malignant neoplasm of lymph node, unspecified; R53.1 Weakness; F41.9 Anxiety disorder, unspecified; J44.9 Chronic obstructive pulmonary disease, unspecified; I10 Essential (primary) hypertension; E11.9 Type 2 diabetes mellitus without complications; Z87.891 Personal history of nicotine dependence; Z99.81 Dependence on supplemental oxygen
CPT/HCPCS: 36415; 36416; 36600; 51702; 70450; 71045; 71275; 80048; 80051; 80053; 80202; 82330; 82803; 82805; 82962; 83735; 84145; 85007; 85025; 86140; 86403; 87040; 87070; 87205; 87426; 87449; 87635; 93005; 94640; 94660; 96365; 96367; 96372; 96375; 99291; G0378; J1650; J2060; J2270; J2543; J2920; J2930; J3370; J7050; Q9967